=== PATIENT | female | born 1950 | race Caucasian/White ===

== ENCOUNTER 2020-04-26 13:37 | Outpatient (CLI) | payer MEDICARE, SELFPAY ==
--- NOTE | ~2020-04-26 | MR_ITS ---
EXAMINATION: MR shoulder RT wo con DATE: 04/26/2020 14:47 INDICATION: Right shoulder pain. TECHNIQUE: Magnetic resonance imaging (MRI) of the right shoulder was performed without intravenous c ontrast. Sequences included axial PD-weighted FS FSE, coronal oblique PD-weighted FS FSE and T2-weigh summer FS FSE, and sagittal oblique T2-weighted FS FSE and T1-weighted FSE. COMPARISON: Right shoulder radiographs 04/26/2020 FINDINGS: Coracoacromial arch: The acromion undersurface is curved in morphology with anterior hook (type III). There is moderate ac romioclavicular joint osteoarthritis. There is mild subacromial/subdeltoid bursitis. Rotator cuff: There is severe supraspinatus tendinopathy and mild infraspinatus tendinopathy. Teres minor tendon is normal. There is mild subscapularis tendinopathy. There is no asymmetric fatty atrophy of the rotato r cuff muscle bellies. Biceps tendon and glenoid labrum: Biceps tendon is in bicipital groove. There is mild intra-articular biceps tendinopathy. There is mac eration of the glenoid labrum. Fluid: There is a moderate-sized glenohumeral joint effusion. Bones/cartilage: There is extensive full-thickness cartilage loss of glenoid and humeral head. There are subchondral c ysts in the glenoid. There is flattening of the articular surface of the humeral head. IMPRESSION: 1. Advanced right glenohumeral joint osteoarthritis. 2. Severe rotator cuff tendinopathy. No tear. 3. Mild intra-articular biceps tendinopathy. 4. Moderate acromioclavicular joint osteoarthritis. 5. Moderate-sized glenohumeral joint effusion. 6. Mild subacromial/subdeltoid bursitis. Reviewed, dictated and finalized at location A.
--- NOTE | ~2020-04-26 | XR_ITS ---
EXAMINATION: XR shoulder RT min 2V DATE: 04/26/2020 14:46 INDICATION: Right shoulder pain. TECHNIQUE: 4 views of right shoulder were obtained. COMPARISON: Right shoulder radiographs 09/11/2017 FINDINGS: Bone alignment is normal. There is advanced glenohumeral joint osteoarthritis including bon e volume loss of humeral head, which is flattened. There is mild acromioclavicular joint osteoarthrit is. IMPRESSION: 1. Advanced right glenohumeral joint osteoarthritis. Reviewed, dictated and finalized at location A.
== END 2020-04-26 13:38 | disposition home or self-care (01) ==
LOC: ANHIMG 13:40
PROVIDERS: PCP Family Medicine; Visit Provider Nurse Practitioner Adult Health
DX: M19.011 Primary osteoarthritis, right shoulder (principal); M75.51 Bursitis of right shoulder; M25.411 Effusion, right shoulder
CPT/HCPCS: 73030; 73221

== ENCOUNTER → 2021-01-30 10:15 | Outpatient (CLI) | payer MEDICARE, SELFPAY ==
[2021-01-30 14:22] LABS: Influenza Control Positive
[2021-01-30 23:32] LABS: SARS-CoV-2 RNA PCR Positive
== END ==
PROVIDERS: Physician Assistant; PCP Family Medicine; Visit Provider Family Medicine
DX: U07.1 COVID-19 (principal); R05 Cough; R50.9 Fever, unspecified
CPT/HCPCS: 87804; C9803; U0003; U0005

== ENCOUNTER 2021-02-06 23:13 | Inpatient (IN) | payer MEDICARE, SELFPAY ==
--- NOTE | ~2021-02-06 | XR_ITS ---
EXAMINATION: XR chest 1V portable DATE: 02/10/2021 04:08 INDICATION: Oxygen desaturation. COVID-19 pneumonia. TECHNIQUE: A single frontal view of the chest was obtained. COMPARISON: Chest single view 02/07/2021, chest CT 02/08/2021 FINDINGS: There are patchy airspace opacities in all lung zones bilaterally. No pleural effusion or p neumothorax. The heart size is normal. There is chronic bone volume loss of right humeral head at the articular surface. IMPRESSION: 1. Diffuse lung disease with worsening on the left, consistent with COVID-19 pneumonia. Reviewed, dictated and finalized at location A. E BUSINESS CONSULTANT IMPRESSION: 1. Diffuse lung disease with worsening on the left, consistent with COVID-19 pn eumonia.
--- NOTE | ~2021-02-06 | US_ITS ---
EXAMINATION: US abdomen limited EXAM DATE: 02/15/2021 16:17 INDICATION: Elevated liver enzymes. TECHNIQUE: Multiple grayscale and Doppler images of the abdomen right upper quadrant were obtained ( by a technologist who performed the scan) and subsequently reviewed. Comparison is made to prior exam ination from 11/14/2015. FINDINGS: The pancreatic head and body are normal in appearance. The pancreatic tail is not visualized. The l iver has normal echogenicity and contour. There are no focal liver lesions identified. There is no evidence of intrahepatic biliary duct dilation. Portal venous flow was seen in the hepatopedal, nor mal direction and has normal Doppler waveform. No right-sided hydronephrosis. Common bile duct measures 3 mm, which is normal. The gallbladder fossa is unremarkable. IMPRESSION: 1. Unremarkable abdominal ultrasound exam. Reviewed, dictated and finalized at location A.
--- NOTE | ~2021-02-06 | US_ITS ---
EXAMINATION: US venous doppler [facility] DATE: 02/07/2021 16:47 INDICATION: Lower limb edema. TECHNIQUE: Grayscale ultrasound images without and with compression and Doppler ultrasound images of the bilateral lower extremity veins were obtained. COMPARISON: Ultrasound 09/04/2015 FINDINGS: The visualized portions of right common femoral vein, profunda (deep) femoral vein, femoral vein, pop liteal vein, peroneal veins, posterior tibial veins, and greater saphenous vein outflow are patent. The visualized portions of left common femoral vein, profunda femoral vein, femoral vein, popliteal v ein, peroneal veins, posterior tibial veins, and greater saphenous vein outflow are patent. IMPRESSION: 1. No deep venous thrombosis. Reviewed, dictated and finalized at location A. BLADE BENDER FURNACE TENDER
--- NOTE | ~2021-02-06 | XR_ITS ---
EXAMINATION: XR chest 1V portable INDICATION: Shortness of breath, COVID 19 TECHNIQUE: Portable AP chest at 0019 hours COMPARISON: 10/07/2006 FINDINGS: There are patchy opacities throughout the lungs, worst in the right upper lobe. There is no pleural effusion or pneumothorax. The cardiomediastinal silhouette is normal. The visualized osseous structures are normal. IMPRESSION: 1. Patchy bilateral airspace opacities, likely pneumonia. Reviewed, dictated and finalized at location A. LTALK DEVELOPER
--- NOTE | ~2021-02-06 | XR_ITS ---
EXAMINATION: XR chest 2V DATE: 02/15/2021 10:43 INDICATION: Follow-up COVID pneumonia TECHNIQUE: frontal and lateral views of the chest were obtained. COMPARISON: Chest radiograph dated 02/10/2021 FINDINGS: Unchanged elevation of the right hemidiaphragm. No significant interval change in bilateral airspace opacities most prominent in the left mid and right mid to upper lung zones. No new airspace opacities , pleural effusion or pneumothorax. The cardiomediastinal silhouette is normal. Severe thoracic spond ylosis. Severe right glenohumeral osteoarthritis. IMPRESSION: 1. No significant interval change in diffuse bilateral lung disease consistent with COVID 19 pneumoni a. Reviewed, dictated and finalized at location B. IMPRESSION: 1. No significant interval change in diffuse bilateral lung disease consistent with COVID 19 pneumonia.
--- NOTE | ~2021-02-06 | CT_ITS ---
EXAMINATION: CTA chest PE protocol EXAM DATE: 02/08/2021 07:37 INDICATION: COVID elevated dimer, r/o PE. TECHNIQUE: Spiral CTA of the chest (pulmonary arteries) was performed with 100 cc Omnipaque 350 intr avenous contrast injection. Images were acquired during the pulmonary arterial phase. Coronal maxi mum intensity projection 3D-reconstructions were created by the technologist on dedicated workstation . Axial, coronal and sagittal reformatted images were reviewed. The dose-length product (DLP) for t his examination was 993.29 mGy-cm. The exposure was tailored according to patient size (auto mA exp osure control), and iterative reconstruction (ASIR) was used as additional dose reduction technique. There is no prior study for comparison. FINDINGS: There is intraluminal small rounded filling defect within a larger left lower lobe interlo bar pulmonary artery (see axial image 102). Rather than being centrally located within the lumen this appears to extend from one wall to another, more consistent with a chronic pulmonary embolism were t hen acute thrombus. There is loss of attenuation right lower lobe segmental pulmonary arteries with e vidence of respiratory motion. No thoracic aortic dissection. There is moderate amount of bilateral groundglass attenuation involving all segments, with small branden ons of confluence in the right upper lobe. Probably COVID pneumonia given history provided. There are no pleural or pericardial effusions. Tracheobronchial tree is patent. There is no mediastinal, h ilar or axillary lymphadenopathy. There is no pneumothorax. Heart normal in size. No evidence o f coronary arterial calcification. Low-density adrenal lesions likely adenomas or hyperplasia. There is cholecystectomy with resultant pneumobilia. There is thoracic spondylosis without osteoblastic o r osteolytic lesions identified. IMPRESSION: 1. Small filling defect in a larger left-sided pulmonary artery, age indeterminate pulmonary embolis m. Could be acute or chronic web, sequela from prior episode of PE. 2. Moderate bilateral airspace disease consistent with COVID pneumonia. I left a message for hospitalist coordinator at [phone] on 02/08/2021 08:14 CLOTHING BUSHELER. I provided my direct nu mber, requested call back to discuss findings in this case. Reviewed, dictated and finalized at location B. HING BUSHELER IMPRESSION: 1. Small filling defect in a larger left-sided pulmonary artery, age indetermi hailey pulmonary embolism. Could be acute or chronic web, sequela from prior epis ode of PE. 2. Moderate bilateral airspace disease consistent with COVID pneumonia. I left a message for hospitalist coordinator at [phone] on 02/08/2021 08:14 CLOTHING BUSHELER. I provided my direct number, requested call back to discuss findings in this alma e.
--- NOTE | 2021-02-06 23:14 | ED.SOB ---
HPI - SOB/Dyspnea General Chief Complaint: Upper Respiratory Infection Stated Complaint: covid + sob with cp and pressure Time Seen by Provider: 02/06/21 23:14 History of Present Illness HPI Narrative: 70 yo female w/ h/o HTN, COPD presents to he ED for SOB. Her symptoms first started 9 days ago. She tested positive for COVID-19 the following day. She has had cough, congestion, body aches, intermittent fever ever since. She also reports nausea and poor PO intake. Today she was more short of breath and developed some mild pressure like chest pain. She was put on a steroid taper by her PCP and has one tablet remaining. Her RA saturation was 88%. She is on 4 liters. Related Data Home Medications Medication Instructions Recorded Confirmed aspirin 81 mg tablet,delayed 81 mg PO DAILY 11/01/19 12/12/20 release calcium carbonate 600 mg calcium 600 mg PO DAILY 11/01/19 12/12/20 (1,500 mg) tablet krill 500 mg-omega 3 115 mg-dha 30 1 cap PO DAILY 11/01/19 12/12/20 mg-epa 64 [id number] capsule vitamin B complex 1 cap PO DAILY 11/01/19 12/12/20 Allergies Allergy/AdvReac Type Severity Reaction Status Date / Time No Known Allergies Allergy Verified 02/06/21 23:28 Review of Systems Review of Systems: All systems reviewed & are unremarkable except as noted in HPI and below Constitutional: Constitutional: Reports chills, Reports fatigue, Reports fever(s) and Reports weakness Eyes: Eyes: Reports no additional eye complaints ENT: Reports nasal congestion Cardiovascular: Cardiovascular: Reports chest pain Respiratory: Respiratory: Reports chest congestion, Reports cough and Reports dyspnea Gastrointestinal: Gastrointestinal: Denies abdominal pain and Reports nausea Genitourinary: Genitourinary: Reports no additional female genitourinary complaints Neurologic: Reports dizziness, Reports headache(s) and Reports weakness PMFSH Past Medical History Medical History 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in A1c less than 7.0% 11/13/2020 A1c = 5.9 HLD (hyperlipidemia) Hypertension Osteoporosis Vision loss Surgical History Surgical History History of varicose veins Status post hysterectomy with oophorectomy Status post laparoscopic cholecystectomy Status post right knee replacement may 2018, Dr. Tovar Family History Family History Mother Hypertension Cerebrovascular accident Father Family history of cardiovascular disease Other Arthritis Social History Social History Smoking packs per day: 1 Smoking cigarettes per day: 20.0 Years smoked: 30 Smoking pack-years: 30.00 Smoking status: Former smoker Second hand tobacco smoke exposure: No Smoking end date: 12/01/03 Alcohol intake: current Drinks per week: 2 Substance use: never Substance use type: does not use Gender identity (if verbalized by the patient): Female Sexual Orientation (if Verbalized by the Patient): Straight or Heterosexual Spiritual care concerns: No Exam Const: General: no acute distress, alert and ill appearing Nutritional Appearance: obese Orientation/consciousness: patient oriented x3 HENMT: Head: normal to inspection Neck: Neck: normal visual inspection Resp: Effort & Inspection: tachypneic Auscultation: crackles Cardio: Rate: tachycardic Rhythm: regular rhythm GI: GI Palp: Yes Soft to palpation and No Tenderness to palpation present (GI) Skin: General skin exam: normal color Neuro: General: patient oriented x3, moves all extremities, no focal motor deficits and CN's II-XI intact bilaterally Speech: normal speech Extrem: Genera
[2021-02-06 23:17] VITALS: BP 134/73; PULSE 110; RESP 28; TEMP 36.9; O2SAT 94
[2021-02-06 23:26] VITALS: PULSE 110; RESP 25; O2SAT 94
[2021-02-06 23:30] VITALS: PULSE 110; RESP 32; O2SAT 92
[2021-02-06] MEDS: IPRATROPIUM BR 0.02% INH SOLN 0.5 MG/2.5 ML VIAL INHALATION (23:34)
[2021-02-06] MEDS: ALBUTEROL SULFATE NEB 2.5 MG/0.5 ML INH 5 MG INHALATION (23:34)
[2021-02-06 23:37] VITALS: PULSE 108; RESP 32
[2021-02-06 23:43] LABS: Alveolar/Arterial O2 Gradient 150.3 mmHg; Carboxyhemoglobin 0.8 % THb (0-2.0); Device NASAL CANNULA; Fractional Inspired Oxygen 36 %; HCO3 ABG 20.7 mEq/l (22.0-26.0); Methemoglobin ABG 0.2 %THb (0-1.5); Modified Allen's Test Pass; Oxygen Content ABG 18.3 %vol (16.0-22.0); Oxygen Saturation ABG 93.9 % (95.0-100.0); Oxyhemoglobin 91.8 % THb (90.0-100.0); PCO2 ABG 33.4 mmHg (35.0-45.0); PO2 ABG 67.6 mmHg (80.0-100.0); PO2 FiO2 Ratio Arterial Blood 1.88 %; Reduced Hemoglobin 7.2 %THb (0-5.0); Site Drawn RIGHT RADIAL; Total Hemoglobin 14.2 g/dL (12.0-18.0); pH ABG 7.411 (7.350-7.450)
[2021-02-06 23:45] VITALS: PULSE 100; PULSE 110; RESP 24; RESP 32; O2SAT 95; O2SAT 96
--- NOTE | 2021-02-06 23:54 | ECG_ITS ---
Measurements Intervals [place] Rate: 112 P: 42 MS: 171 QRS: -33 QRSD: 76 T: 31 QT: 303 QTc: 414 Interpretive Statements SINUS TACHYCARDIA LEFT AXIS DEVIATION VOLTAGE CRITERIA FOR LVH POOR R WAVE PROGRESSION, CONSIDER ANTERIOR INFARCT INFERIOR INFARCT, AGE INDETERMINATE BASELINE ARTIFACT- I, II, AVR, AVL, V1 ABNORMAL ECG Electronically Signed On 02-07-2021 7:00:39 STRUCTURAL STEEL SHOP SUPERVISOR by Ezekiel Nance D.O.
[2021-02-06 23:56] VITALS: BP 111/74; PULSE 120; RESP 28; O2SAT 93
[2021-02-07] VITALS (29 sets, daily range): BP systolic 109–153; BP diastolic 51–80; PULSE 71–121; RESP 18–35; TEMP 36.4–38.3; O2SAT 90–96; BMI 46.3
[2021-02-07] MEDS: DEXAMETHASONE SOD PHOS INJ 4 MG/ML VIAL 6 MG IV PUSH ×2 (00:12→12:50)
[2021-02-07 00:33] LABS: Basophils Absolute Auto 0.1 K/mm3 (0.0-0.1); Basophils Percent Auto 0.7 % (0.2-1.2); Eosinophils Percent Auto 0.2 % (0-4.4); Hematocrit 42.3 % (37.0-47.0); Hemoglobin 13.7 g/dL (12.0-15.0); Immature Granulocyte Absolute 0.73 K/mm3 (0.00-0.031); Immature Granulocyte Percent A 6.1 % (0-0.5); Lymphocytes Absolute Auto 1.87 K/mm3 (0.9-3.2); Lymphocytes Percent Auto 15.5 % (18.3-44.2); Mean Corpuscular HGB Conc 32.4 g/dl (32-36); Mean Corpuscular Hemoglobin 30.5 pg (26-34); Mean Corpuscular Volume 94.2 fl (80-100); Mean Platelet Volume 9.9 fl (7.4-10.4); Monocytes Absolute Auto 0.5 K/mm3 (0.1-0.6); Monocytes Percent Auto 4.3 % (2.6-8.5); Neutrophils Absolute Auto 8.8 K/mm3 (1.3-6.7); Neutrophils Percent Auto 73.2 % (45.5-73.1); Platelet Count Result 195 k/mm3 (150-375); Red Blood Count 4.49 M/mm3 (4.2-5.4); Red Cell Distribution Width 13.8 % (11.5-14.5)
[2021-02-07 00:37] LABS: Prothrombin Time 13.6 Seconds (11.1-14.7)
[2021-02-07 00:38] LABS: Partial Thromboplastin Time 32.6 SECONDS (22.3-36.8)
[2021-02-07 00:59] LABS: Alanine Aminotransferase 83 U/L (4-35); Albumin Level 3.5 g/dL (3.5-5.1); Alkaline Phosphatase 127 U/L (38-126); Anion Gap 7 mmol/L (8-16); Aspartate Amino Transferase 68 U/L (14-36); Bilirubin,Total 0.5 mg/dL (0.2-1.3); Blood Urea Nitrogen 34 mg/dL (7-17); CRP 14.4 mg/dL (<1.0); Calcium 9.2 mg/dL (8.4-10.2); Carbon Dioxide 23 mmol/L (22-30); Chloride 111 mmol/L (98-107); Estimated CRCL calculation 64 ml/min; Estimated Glomerular Filt Rate > 60; Glucose 146 mg/dL (65-105); Potassium 4.5 mmol/L (3.4-5.0); Sodium 141 mmol/L (137-145)
[2021-02-07 01:26] LABS: Lactic Acid Reflex 1.1 mmol/L (0.7-2.1)
[2021-02-07 01:42] LABS: D Dimer 1.31 ug/mL (<0.48)
[2021-02-07] MEDS: ONDANSETRON INJ 4 MG/2 ML VIAL IV PUSH (01:55)
[2021-02-07 02:02] LABS: Appearance Urine Clear (Clear); Bilirubin Urine Negative (Negative); Blood Urine Negative (Negative); Color Urine Yellow (Yellow); Glucose Urine UA Negative (Negative); Ketones Urine 2+ mg/dL (Negative); Leukocyte Esterase Ur Negative LEU/UL (Negative); Nitrate Urine Positive (Negative); Protein Urine 2+ mg/dL (Negative); Specific Grav Ur 1.025 (1.001-1.035); Urobilinogen Urine 0.2 mg/dL (<2.0)
[2021-02-07 02:07] LABS: Bacteria Urine 2+ /hpf; Mucus Urine Few /lpf; RBC Urine 0-2 /hpf (0-2); Squamous Epithelial Cell Urine Rare /hpf (Few); WBC Urine 0-3 /hpf
[2021-02-07 02:08] LABS: Add Urine Microscopic? YES
[2021-02-07] MEDS: ALBUTEROL SULFATE NEB 2.5 MG/0.5 ML INH 5 MG INHALATION ×4 (02:55→20:24)
[2021-02-07] MEDS: IPRATROPIUM BR 0.02% INH SOLN 0.5 MG/2.5 ML VIAL INHALATION ×4 (02:55→20:24)
[2021-02-07] MEDS: REMDESIVIR 200 MG/NS 250 ML 200 MG/250 ML BAG 250 MG IVPB (03:01)
[2021-02-07 10:21] LABS: Basophils Absolute Auto 0.1 K/mm3 (0.0-0.1); Eosinophils Percent Auto 0.4 % (0-4.4); Hematocrit 40.6 % (37.0-47.0); Hemoglobin 13.1 g/dL (12.0-15.0); Immature Granulocyte Absolute 0.76 K/mm3 (0.00-0.031); Immature Granulocyte Percent A 8.3 % (0-0.5); Lymphocytes Absolute Auto 0.67 K/mm3 (0.9-3.2); Lymphocytes Percent Auto 7.3 % (18.3-44.2); Mean Corpuscular HGB Conc 32.3 g/dl (32-36); Mean Corpuscular Hemoglobin 30.8 pg (26-34); Mean Corpuscular Volume 95.3 fl (80-100); Mean Platelet Volume 9.6 fl (7.4-10.4); Monocytes Absolute Auto 0.3 K/mm3 (0.1-0.6); Monocytes Percent Auto 2.7 % (2.6-8.5); Neutrophils Absolute Auto 7.4 K/mm3 (1.3-6.7); Neutrophils Percent Auto 80.3 % (45.5-73.1); Platelet Count Result 185 k/mm3 (150-375); Red Blood Count 4.26 M/mm3 (4.2-5.4); Red Cell Distribution Width 14.1 % (11.5-14.5); White Blood Count 9.2 K/mm3 (4.5-10.0)
[2021-02-07 10:36] LABS: Alanine Aminotransferase 74 U/L (4-35); Albumin Level 3.3 g/dL (3.5-5.1); Alkaline Phosphatase 118 U/L (38-126); Anion Gap 6 mmol/L (8-16); Aspartate Amino Transferase 48 U/L (14-36); Bilirubin,Total 0.3 mg/dL (0.2-1.3); Blood Urea Nitrogen 26 mg/dL (7-17); Calcium 8.7 mg/dL (8.4-10.2); Carbon Dioxide 25 mmol/L (22-30); Chloride 111 mmol/L (98-107); Estimated CRCL calculation 79 ml/min; Estimated Glomerular Filt Rate > 60; Glucose 246 mg/dL (65-105); Magnesium 1.7 mg/dL (1.6-2.3); Potassium 4.3 mmol/L (3.4-5.0); Sodium 142 mmol/L (137-145)
--- NOTE | 2021-02-07 11:37 | PCNSR ---
On 02/07/21, the student,Brittany Katz, provided care and completed [facility]. I have reviewed the student's documentation and agree with the findings.
--- NOTE | 2021-02-07 12:44 | ECG_ITS ---
Measurements Intervals [place] Rate: 74 P: 27 LA: 174 QRS: -27 QRSD: 84 T: 14 QT: 375 QTc: 416 Interpretive Statements SINUS RHYTHM VOLTAGE CRITERIA FOR LVH POOR R WAVE PROGRESSION, ANTERIOR LEADS INFERIOR INFARCT, AGE INDETERMINATE BASELINE ARTIFACT- I, III, AVL ABNORMAL ECG Electronically Signed On 02-07-2021 14:25:08 JUNIOR NETWORK ENGINEER by Ezekiel Nance D.O.
--- NOTE | 2021-02-07 12:46 | PM.IMHP ---
H&P: HPI History of Present Illness Date/Time: 02/07/21 12:15 Chief Complaint: Shortness of breath Narrative: 02/07/21 1215 The supervising physician for this history and physical is Dr Althea Marie. Ms. Garcia is a pleasant 70yo F with history of COPD, hypertension, dyslipidemia with recent known COVID positive testing 01/30/21 who presented to the ED from home for evaluation of worsening shortness of breath. She described her symptoms began 01/29 with body aches, intermittent fever, cough, nausea, and decreased appetite. She has also had progressive shortness of breath which worsened in the last few days enough to prompt her to come to ED. She describes chest heaviness that feels like a loaf of bread sitting on her chest. This sensation is not constant but is coming and going on now for several days, worse yesterday and is present now at time of my encounter. She describes weakness and fatigue. She describes SOB worse with movement. She notes headaches that mildly improve with using Tylenol at home. She denies leg swelling or pain. In the ED: Chest XR shows PETROS patchy airspace disease consistent with pneumonia. Noted to have hypoxia and was started on supplemental O2, initially on 4L/min now up to 6L/min NC. Minimally elevated LFTs are noted. Other routine labs are grossly unremarkable aside from D-dimer 1.31. She was started on dexamethasone, remdesivir, and nebulized bronchodilator therapy in the ED. She is admitted inpatient status to the hospitalist service for management of acute respiratory failure secondary to COVID pneumonia, COPD. Review of Systems Review of Systems: All systems reviewed & are unremarkable except as noted in HPI and below PMFSH Past Medical History Medical History 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in A1c less than 7.0% 11/13/2020 A1c = 5.9 HLD (hyperlipidemia) Hypertension Osteoporosis Vision loss Surgical History Surgical History History of varicose veins Status post hysterectomy with oophorectomy Status post laparoscopic cholecystectomy Status post right knee replacement may 2018, Dr. Tovar Family History Family History Mother Hypertension Cerebrovascular accident Heart murmur Father Family history of cardiovascular disease Arthritis Atrial fibrillation Diabetes mellitus Social History Social History (Updated 02/07/21 @ 20:42 by Rosamaria Ascencio PA-C) Social History: Ms. Garcia lives at home alone in [place] and is retired from working at an accounting office. She reports some alcohol intake maybe 2 drinks per week. Former smoker 1ppd x 30 years and quit in 2003. Denies other substance use. PCP is Dr Jesus Gonzales. She describes she would wish for CPR and intubation if felt she could survive but would not wish to be on life support for an extended period, thus keeping her code status DNR. She has two children and her son, Manuel, is a wire harness assembler in [place] and is her designated power of health care attorney. Smoking packs per day: 1 Smoking cigarettes per day: 20.0 Years smoked: 30 Smoking pack-years: 30.00 Smoking status: Former smoker Tobacco type: cigarettes Second hand tobacco smoke exposure: No Alcohol intake: current Drinks per week: 2 Substance use: never Substance use type: does not use Living arrangements: alone Occupation/Education: retired Gender identity (if verbalized by the patient): Female Sexual Orientation (if Verbalized by the Patient): Straight or Heterosexual Spiritual care concerns: No Meds Home Medications and Allergies Home Medications Medication Instructions Recorded Confirmed Type aspirin 81 mg tablet,krish
[2021-02-07] MEDS: ENOXAPARIN 40 MG/0.4 ML SYRINGE SUB-Q ×2 (12:50→21:35)
[2021-02-07] MEDS: METOPROLOL SUCCINATE EXT REL 25 MG TABCR PO (12:52)
[2021-02-07] MEDS: LOSARTAN POTASSIUM 50 MG TABLET PO (12:52)
[2021-02-07] MEDS: MAGNESIUM SULF 2 GM/WATER 50ML 2 GM/50 ML BAG IVPB (12:53)
[2021-02-07] MEDS: PANTOPRAZOLE 40 MG TABLET PO (12:53)
[2021-02-07 15:39] LABS: Troponin I < 0.012 ng/mL (0.000-0.034)
[2021-02-07] MEDS: predniSONE 40 MG, predniSONE 10 MG 50 MG PO (17:59)
[2021-02-07] MEDS: SALINE 0.65% NAS SOLN 44 ML BTL 1 SPRAY NASAL (18:00)
[2021-02-07] MEDS: REMDESIVIR 100 MG/NS 250 ML 100 MG/250 ML BAG 250 MG IVPB (21:35)
[2021-02-08] VITALS (15 sets, daily range): BP systolic 120–130; BP diastolic 57–80; PULSE 66–101; RESP 20–22; TEMP 36.8–37.4; O2SAT 90–93
[2021-02-08] MEDS: predniSONE 40 MG, predniSONE 10 MG 50 MG PO ×2 (00:53→06:35)
[2021-02-08] MEDS: ALBUTEROL SULFATE NEB 2.5 MG/0.5 ML INH 5 MG INHALATION ×4 (02:30→20:46)
[2021-02-08] MEDS: IPRATROPIUM BR 0.02% INH SOLN 0.5 MG/2.5 ML VIAL INHALATION ×4 (02:31→20:46)
[2021-02-08 06:17] LABS: Basophils Percent Auto 0.1 % (0.2-1.2); Hematocrit 37.6 % (37.0-47.0); Hemoglobin 12.2 g/dL (12.0-15.0); Immature Granulocyte Absolute 0.75 K/mm3 (0.00-0.031); Immature Granulocyte Percent A 8.2 % (0-0.5); Lymphocytes Absolute Auto 0.62 K/mm3 (0.9-3.2); Lymphocytes Percent Auto 6.7 % (18.3-44.2); Mean Corpuscular HGB Conc 32.4 g/dl (32-36); Mean Corpuscular Hemoglobin 30.2 pg (26-34); Mean Corpuscular Volume 93.1 fl (80-100); Mean Platelet Volume 9.5 fl (7.4-10.4); Monocytes Absolute Auto 0.6 K/mm3 (0.1-0.6); Monocytes Percent Auto 6.1 % (2.6-8.5); Neutrophils Absolute Auto 7.3 K/mm3 (1.3-6.7); Neutrophils Percent Auto 78.9 % (45.5-73.1); Platelet Count Result 219 k/mm3 (150-375); Red Blood Count 4.04 M/mm3 (4.2-5.4); Red Cell Distribution Width 13.8 % (11.5-14.5); White Blood Count 9.2 K/mm3 (4.5-10.0)
[2021-02-08 06:27] LABS: Alanine Aminotransferase 84 U/L (4-35); Albumin Level 3.2 g/dL (3.5-5.1); Alkaline Phosphatase 116 U/L (38-126); Anion Gap 9 mmol/L (8-16); Aspartate Amino Transferase 60 U/L (14-36); Bilirubin,Total 0.2 mg/dL (0.2-1.3); Blood Urea Nitrogen 28 mg/dL (7-17); Carbon Dioxide 23 mmol/L (22-30); Chloride 110 mmol/L (98-107); Creatine Kinase 31 U/L (30-135); Estimated CRCL calculation 70 ml/min; Estimated Glomerular Filt Rate > 60; Glucose 256 mg/dL (65-105); Potassium 3.9 mmol/L (3.4-5.0); Sodium 142 mmol/L (137-145)
[2021-02-08] MEDS: diphenhydrAMINE HCl CAP 25 MG CAPSULE 50 MG PO (06:37)
[2021-02-08] MEDS: UMECLIDINIUM/VILANTEROL 62.5-25 MCG ELLIPTA 1 PUFF INHALATION (08:10)
[2021-02-08] MEDS: DEXAMETHASONE SOD PHOS INJ 4 MG/ML VIAL 6 MG IV PUSH (09:39)
[2021-02-08] MEDS: CALCIUM CARBONATE (OSCAL) 500 MG TABLET PO (09:41)
[2021-02-08] MEDS: CHOLECALCIFEROL 1,000 UNITS TABLET 1000 UNITS PO (09:41)
[2021-02-08] MEDS: APIXABAN 5 MG TABLET 10 MG PO ×2 (09:41→21:04)
[2021-02-08] MEDS: PANTOPRAZOLE 40 MG TABLET PO (09:42)
[2021-02-08] MEDS: METOPROLOL SUCCINATE EXT REL 25 MG TABCR PO (09:42)
[2021-02-08] MEDS: LOSARTAN POTASSIUM 50 MG TABLET PO (09:42)
[2021-02-08] MEDS: MAGNESIUM OXIDE 200 MG TABLET PO ×2 (09:42→21:03)
[2021-02-08] MEDS: ZINC SULFATE 220 MG CAPSULE PO (09:42)
[2021-02-08] MEDS: ASCORBIC ACID 500 MG TABLET PO (09:42)
--- NOTE | 2021-02-08 14:07 | PM.IMPN ---
Progress Note: A&P Assessment and Plan (1) Acute respiratory failure due to COVID-19: Code(s): U07.1 - COVID-19; J96.00 - Acute respiratory failure, unspecified whether with hypoxia or hypercapnia Status: Acute Assessment and Plan: Patient presents with worsening shortness of breath, fatigue; CXR shows patchy PETROS airspace disease; COVID positive 01/30/21. Continue dexamethasone (day 3); remdesivir (day 3). Continue supplemental O2 and wean as tolerated to keep O2 saturations > 90%. Continue supportive care with Tylenol for fevers, bronchodilators, Robitussin, incentive spirometer, supplementation of Zinc, vitamins C and D. (2) Pulmonary embolism: Qualifiers: Pulmonary embolism type: unspecified Chronicity: unspecified Acute cor pulmonale presence: unspecified Qualified Code(s): I26.99 - Other pulmonary embolism without acute cor pulmonale Code(s): I26.99 - Other pulmonary embolism without acute cor pulmonale Status: Acute Assessment and Plan: D dimer 1.31. CTA chest 02/08 demonstrates a small filling defect in left lower lobe, age indeterminate PE (characteristics more consistent with a resolving PE than an acute PE). Dopplers 02/07 show no DVT PETROS legs. Discussed with patient. Start Eliquis. (3) Abnormal urinalysis: Code(s): R82.90 - Unspecified abnormal findings in urine Status: Acute Assessment and Plan: Started on ceftriaxone in ED due to abnormal UA. Not enough WBC to reflex for urine culture, contacted lab this AM and they will culture the specimen from arrival. Continue IV ceftriaxone (day 2) while awaiting urine and blood cultures. (4) COPD (chronic obstructive pulmonary disease): Qualifiers: COPD type: unspecified COPD Qualified Code(s): J44.9 - Chronic obstructive pulmonary disease, unspecified Code(s): J44.9 - Chronic obstructive pulmonary disease, unspecified Status: Chronic Assessment and Plan: Without wheezing does not appear to have COPD exacerbation. Continue her home Anoro inhaler. Continue nebulized bronchodilator therapy for now and hopefully can deescalate to MDI soon. (5) Essential (primary) hypertension: Code(s): I10 - Essential (primary) hypertension Status: Chronic Assessment and Plan: BP stable/ on lower end last 127/57 maintained on her home metoprolol and losartan. Hold spironolactone for now. Monitor BP and adjust treatment as needed. (6) Transaminitis: Code(s): R74.01 - Elevation of levels of liver transaminase levels Status: Acute Assessment and Plan: Suspect may be related to viral illness with COVID. Mild. Will monitor LFTs while on remdesivir. Hold statin therapy for now. (7) Chronic GERD: Code(s): K21.9 - Gastro-esophageal reflux disease without esophagitis Status: Chronic Assessment and Plan: Continue PPI, no acute issues. (8) Arthritis of shoulder region, right: Code(s): M19.011 - Primary osteoarthritis, right shoulder Status: Chronic Assessment and Plan: Follows with Dr Warner. She reports chronic pain to R shoulder due to arthritis. She notes she is supposed to have shoulder replacement but she was advised to lose weight first. Subjective Date/time seen: 02/08/21 1400 Interval history: Ms. Garcia is a pleasant 70yo F admitted for acute respiratory failure secondary to COVID pneumonia. She reports her shortness of breath feels slightly improved today compared to yesterday. No chest pressure today. Coughing after breathing treatments but she thinks they are helping. Michael
[2021-02-08] MEDS: REMDESIVIR 100 MG/NS 250 ML 100 MG/250 ML BAG 250 MG IVPB (21:03)
[2021-02-09] VITALS (22 sets, daily range): BP systolic 122–143; BP diastolic 61–73; PULSE 77–114; RESP 16–22; TEMP 36.3–36.8; O2SAT 89–93
[2021-02-09] MEDS: ALBUTEROL SULFATE NEB 2.5 MG/0.5 ML INH 5 MG INHALATION ×4 (02:27→21:13)
[2021-02-09] MEDS: IPRATROPIUM BR 0.02% INH SOLN 0.5 MG/2.5 ML VIAL INHALATION ×4 (02:27→21:13)
[2021-02-09 06:40] LABS: Alanine Aminotransferase 166 U/L (4-35); Alkaline Phosphatase 120 U/L (38-126); Anion Gap 5 mmol/L (8-16); Aspartate Amino Transferase 112 U/L (14-36); Bilirubin,Total 0.2 mg/dL (0.2-1.3); Blood Urea Nitrogen 34 mg/dL (7-17); Calcium 9.2 mg/dL (8.4-10.2); Carbon Dioxide 25 mmol/L (22-30); Chloride 112 mmol/L (98-107); Estimated CRCL calculation 63 ml/min; Estimated Glomerular Filt Rate > 60; Glucose 305 mg/dL (65-105); Potassium 4.2 mmol/L (3.4-5.0); Sodium 142 mmol/L (137-145)
[2021-02-09] MEDS: ASCORBIC ACID 500 MG TABLET PO (08:02)
[2021-02-09] MEDS: CALCIUM CARBONATE (OSCAL) 500 MG TABLET PO (08:02)
[2021-02-09] MEDS: MAGNESIUM OXIDE 200 MG TABLET PO ×2 (08:02→21:09)
[2021-02-09] MEDS: PANTOPRAZOLE 40 MG TABLET PO (08:02)
[2021-02-09] MEDS: CHOLECALCIFEROL 1,000 UNITS TABLET 1000 UNITS PO (08:02)
[2021-02-09] MEDS: DEXAMETHASONE SOD PHOS INJ 4 MG/ML VIAL 6 MG IV PUSH (08:02)
[2021-02-09] MEDS: ZINC SULFATE 220 MG CAPSULE PO (08:02)
[2021-02-09] MEDS: LOSARTAN POTASSIUM 50 MG TABLET PO (08:02)
[2021-02-09] MEDS: APIXABAN 5 MG TABLET 10 MG PO ×2 (08:03→21:10)
[2021-02-09] MEDS: METOPROLOL SUCCINATE EXT REL 25 MG TABCR PO (08:06)
[2021-02-09] MEDS: guaiFENesin/DEXTROMETHORPHAN 10 ML UDC PO ×3 (08:11→15:56)
[2021-02-09] MEDS: UMECLIDINIUM/VILANTEROL 62.5-25 MCG ELLIPTA 1 PUFF INHALATION (08:53)
[2021-02-09 09:17] LABS: Hemoglobin A1C 6.6 % (<5.7)
[2021-02-09 11:45] LABS: Glucose Point of Care 378 (65-105)
[2021-02-09] MEDS: INSULIN ASPART (*BKC) 100 UNITS/ML SUB-Q ×2 (11:50→17:59)
[2021-02-09] MEDS: polyethylene glycoL 3350 17 GM POWD.PACK PO (13:00)
[2021-02-09] MEDS: ACETAMINOPHEN 325 MG TABLET 650 MG PO (13:58)
[2021-02-09 14:49] LABS: Glucose Point of Care 385 (65-105)
[2021-02-09] MEDS: INSULIN ASPART (*BKC) 100 UNITS/ML 12 UNITS SUB-Q (15:04)
--- NOTE | 2021-02-09 16:17 | PM.IMPN ---
Progress Note: A&P Assessment and Plan (1) Acute respiratory failure due to COVID-19: Code(s): U07.1 - COVID-19; J96.00 - Acute respiratory failure, unspecified whether with hypoxia or hypercapnia Status: Acute Assessment and Plan: Patient presents with worsening shortness of breath, fatigue; CXR shows patchy PETROS airspace disease; COVID positive 01/30/21. Continue dexamethasone (day 4); remdesivir (day 4). Continue supplemental O2 and wean as tolerated to keep O2 saturations > 90%. O2 able to be weaned today now tolerating 4L. Continue supportive care with Tylenol for fevers, bronchodilators, Robitussin, incentive spirometer, supplementation of Zinc, vitamins C and D. (2) Pulmonary embolism: Qualifiers: Pulmonary embolism type: unspecified Chronicity: unspecified Acute cor pulmonale presence: unspecified Qualified Code(s): I26.99 - Other pulmonary embolism without acute cor pulmonale Code(s): I26.99 - Other pulmonary embolism without acute cor pulmonale Status: Acute Assessment and Plan: D dimer 1.31. CTA chest 02/08 demonstrates a small filling defect in left lower lobe, age indeterminate PE (characteristics more consistent with a resolving PE than an acute PE but cannot rule out acute PE that is tiny/oddly shaped). Dopplers 02/07 show no DVT PETROS legs. Continue Eliquis. Repeat CTA chest in 3-6 months is recommended. (3) Hemoglobin A1c less than 7.0%: Code(s): R73.09 - Other abnormal glucose Status: Acute Assessment and Plan: A1c 6.6% (up from 5.9% in Oct 2020). With blood sugars in the high 300s today. Start Lantus this evening. Start diabetic diet. Start accu-cheks and cover with sliding scale insulin. Give novolog now for hyperglycemia. (4) Abnormal urinalysis: Code(s): R82.90 - Unspecified abnormal findings in urine Status: Acute Assessment and Plan: Started on ceftriaxone in ED due to abnormal UA. Urine growing Gram negative bacilli. Continue IV ceftriaxone (day 3) while awaiting urine culture identification and blood cultures. (5) COPD (chronic obstructive pulmonary disease): Qualifiers: COPD type: unspecified COPD Qualified Code(s): J44.9 - Chronic obstructive pulmonary disease, unspecified Code(s): J44.9 - Chronic obstructive pulmonary disease, unspecified Status: Chronic Assessment and Plan: Without wheezing does not appear to have COPD exacerbation. Continue her home Anoro inhaler. Continue nebulized bronchodilator therapy for now. (6) Essential (primary) hypertension: Code(s): I10 - Essential (primary) hypertension Status: Chronic Assessment and Plan: BP stable 122/65 maintained on her home metoprolol and losartan. Hold spironolactone for now. Monitor BP and adjust treatment as needed. (7) Transaminitis: Code(s): R74.01 - Elevation of levels of liver transaminase levels Status: Acute Assessment and Plan: Suspect may be related to viral illness with COVID. LFTs are trending up; continue to monitor while on Remdesivir. Hold statin therapy for now. (8) Chronic GERD: Code(s): K21.9 - Gastro-esophageal reflux disease without esophagitis Status: Chronic Assessment and Plan: Continue PPI, no acute issues. (9) Arthritis of shoulder region, right: Code(s): M19.011 - Primary osteoarthritis, right shoulder Status: Chronic Assessment and Plan: Follows with Dr Warner. She reports chronic pain to R shoulder due to arthritis. She notes she is supposed to have shoulder replacement but she was
[2021-02-09 17:58] LABS: Glucose Point of Care 302 (65-105)
[2021-02-09] MEDS: INSULIN ASPART (*BKC) 100 UNITS/ML 6 UNITS SUB-Q (17:59)
[2021-02-09 21:19] LABS: Glucose Point of Care 221 (65-105)
[2021-02-09] MEDS: INSULIN GLARGINE (*BKC) 100 UNITS/ML 20 UNITS SUB-Q (21:20)
[2021-02-09] MEDS: REMDESIVIR 100 MG/NS 250 ML 100 MG/250 ML BAG 250 MG IVPB (21:22)
[2021-02-09] MEDS: BISACODYL 5 MG TABLET EC PO (22:40)
[2021-02-10] VITALS (22 sets, daily range): BP systolic 131–139; BP diastolic 59–64; PULSE 72–110; RESP 18–20; TEMP 35.9–36.3; O2SAT 86–97
[2021-02-10] MEDS: ALBUTEROL SULFATE NEB 2.5 MG/0.5 ML INH 5 MG INHALATION ×4 (02:40→19:31)
[2021-02-10] MEDS: IPRATROPIUM BR 0.02% INH SOLN 0.5 MG/2.5 ML VIAL INHALATION ×4 (02:40→19:31)
[2021-02-10] MEDS: guaiFENesin/DEXTROMETHORPHAN 10 ML UDC PO ×2 (02:59→08:53)
[2021-02-10 04:16] LABS: Alveolar/Arterial O2 Gradient 182.7 mmHg; Base Excess ABG 0.5 mEq/l (+/-2.0); Fractional Inspired Oxygen 40 %; HCO3 ABG 25.2 mEq/l (22.0-26.0); Oxygen Content ABG 16.8 %vol (16.0-22.0); Oxygen Saturation ABG 88.9 % (95.0-100.0); Oxyhemoglobin 87.7 % THb (90.0-100.0); PCO2 ABG 41.2 mmHg (35.0-45.0); PO2 ABG 55.1 mmHg (80.0-100.0); PO2 FiO2 Ratio Arterial Blood 1.38 %; Total Hemoglobin 13.6 g/dL (12.0-18.0); pH ABG 7.405 (7.350-7.450)
[2021-02-10 04:17] LABS: Device NASAL CANNULA; Modified Allen's Test Pass; Site Drawn RIGHT RADIAL
--- NOTE | 2021-02-10 06:28 | PC.NURSE ---
Dr. Joshi was called when patient's SpO2 didn't improve. She had been on 2 lpm during the day with reported improvement in SpO2. While sleeping she desaturated and woke up with a dry cough. O2 was increased by increments of 1 with little improvement noted on the monitor. At 5 lpm she had a baseline SpO2 of 85%. ABG's were redrawn, patient was sat upright, and she was titrated up to 15 lpm with a high flow cannula, now 88%.
[2021-02-10 07:08] LABS: Alanine Aminotransferase 192 U/L (4-35); Albumin Level 3.1 g/dL (3.5-5.1); Alkaline Phosphatase 108 U/L (38-126); Anion Gap 3 mmol/L (8-16); Aspartate Amino Transferase 91 U/L (14-36); Bilirubin,Total 0.4 mg/dL (0.2-1.3); Blood Urea Nitrogen 34 mg/dL (7-17); Carbon Dioxide 28 mmol/L (22-30); Chloride 109 mmol/L (98-107); Estimated CRCL calculation 70 ml/min; Estimated Glomerular Filt Rate > 60; Glucose 270 mg/dL (65-105); Potassium 4.5 mmol/L (3.4-5.0); Sodium 140 mmol/L (137-145)
[2021-02-10 07:13] LABS: Basophils Absolute Auto 0.1 K/mm3 (0.0-0.1); Basophils Percent Auto 0.9 % (0.2-1.2); Hematocrit 39.9 % (37.0-47.0); Hemoglobin 12.9 g/dL (12.0-15.0); Immature Granulocyte Absolute 0.89 K/mm3 (0.00-0.031); Immature Granulocyte Percent A 7.6 % (0-0.5); Lymphocytes Absolute Auto 0.78 K/mm3 (0.9-3.2); Lymphocytes Percent Auto 6.7 % (18.3-44.2); Mean Corpuscular HGB Conc 32.3 g/dl (32-36); Mean Corpuscular Hemoglobin 29.9 pg (26-34); Mean Corpuscular Volume 92.6 fl (80-100); Mean Platelet Volume 9.7 fl (7.4-10.4); Monocytes Percent Auto 8.7 % (2.6-8.5); Neutrophils Absolute Auto 8.9 K/mm3 (1.3-6.7); Neutrophils Percent Auto 76.1 % (45.5-73.1); Platelet Count Result 278 k/mm3 (150-375); Red Blood Count 4.31 M/mm3 (4.2-5.4); White Blood Count 11.7 K/mm3 (4.5-10.0)
[2021-02-10] MEDS: CALCIUM CARBONATE (OSCAL) 500 MG TABLET PO (08:33)
[2021-02-10] MEDS: CHOLECALCIFEROL 1,000 UNITS TABLET 1000 UNITS PO (08:33)
[2021-02-10] MEDS: APIXABAN 5 MG TABLET 10 MG PO ×2 (08:33→20:27)
[2021-02-10] MEDS: ASCORBIC ACID 500 MG TABLET PO (08:33)
[2021-02-10] MEDS: DEXAMETHASONE SOD PHOS INJ 4 MG/ML VIAL 6 MG IV PUSH (08:34)
[2021-02-10] MEDS: LOSARTAN POTASSIUM 50 MG TABLET PO (08:34)
[2021-02-10] MEDS: MAGNESIUM OXIDE 200 MG TABLET PO ×2 (08:35→20:27)
[2021-02-10] MEDS: METOPROLOL SUCCINATE EXT REL 25 MG TABCR PO (08:35)
[2021-02-10] MEDS: polyethylene glycoL 3350 17 GM POWD.PACK PO (08:36)
[2021-02-10] MEDS: PANTOPRAZOLE 40 MG TABLET PO (08:36)
[2021-02-10] MEDS: INSULIN ASPART (*BKC) 100 UNITS/ML SUB-Q ×3 (09:02→18:34)
[2021-02-10] MEDS: INSULIN ASPART (*BKC) 100 UNITS/ML 6 UNITS SUB-Q ×3 (09:03→18:35)
[2021-02-10 10:12] LABS: Glucose Point of Care 234 (65-105)
[2021-02-10] MEDS: ZINC SULFATE 220 MG CAPSULE PO (11:56)
[2021-02-10 13:07] LABS: Glucose Point of Care 213 (65-105)
--- NOTE | 2021-02-10 13:11 | PM.IMPN ---
Progress Note: A&P Assessment and Plan (1) Acute respiratory failure due to COVID-19: Code(s): U07.1 - COVID-19; J96.00 - Acute respiratory failure, unspecified whether with hypoxia or hypercapnia Status: Acute Assessment and Plan: Patient presents with worsening shortness of breath, fatigue; CXR shows patchy PETROS airspace disease; COVID positive 01/30/21. Continue dexamethasone (day 5); remdesivir (day 5). Continue supplemental O2 and wean as tolerated to keep O2 saturations around 89-95%. Was tolerating 2L/min around 2AM then with marked increase in O2 requirement very early this morning up to 15L/min high flow NC, now tolerating 13L/min. Continue supportive care with Tylenol for fevers, bronchodilators, Robitussin, incentive spirometer, supplementation of Zinc, vitamins C and D. (2) Pulmonary embolism: Qualifiers: Pulmonary embolism type: unspecified Chronicity: unspecified Acute cor pulmonale presence: unspecified Qualified Code(s): I26.99 - Other pulmonary embolism without acute cor pulmonale Code(s): I26.99 - Other pulmonary embolism without acute cor pulmonale Status: Acute Assessment and Plan: D dimer 1.31. CTA chest 02/08 demonstrates a small filling defect in left lower lobe, age indeterminate PE (characteristics more consistent with a resolving PE than an acute PE but cannot rule out acute PE that is tiny/oddly shaped). Dopplers 02/07 show no DVT PETROS legs. Continue Eliquis. Repeat CTA chest in 3-6 months is recommended. (3) Hemoglobin A1c less than 7.0%: Code(s): R73.09 - Other abnormal glucose Status: Acute Assessment and Plan: A1c 6.6% (up from 5.9% in Oct 2020). With blood sugars in the high 300s yesterday. Sugars have improved some with insulin, will monitor trend and titrate insulin as needed. Started Lantus 20units HS 02/09. Diabetic diet. Continue to monitor accu-cheks and cover with sliding scale insulin. Placed consultation for diabetes education. (4) COPD (chronic obstructive pulmonary disease): Qualifiers: COPD type: unspecified COPD Qualified Code(s): J44.9 - Chronic obstructive pulmonary disease, unspecified Code(s): J44.9 - Chronic obstructive pulmonary disease, unspecified Status: Chronic Assessment and Plan: Without wheezing does not appear to have COPD exacerbation. Continue her home Anoro inhaler. Continue nebulized bronchodilator therapy for now. (5) UTI (urinary tract infection): Qualifiers: Urinary tract infection type: acute cystitis Hematuria presence: without hematuria Qualified Code(s): N30.00 - Acute cystitis without hematuria Code(s): N39.0 - Urinary tract infection, site not specified Status: Acute Assessment and Plan: Urine culture growing Klebsiella. Blood cultures pending with no growth. Continue IV ceftriaxone (day 5). (6) Essential (primary) hypertension: Code(s): I10 - Essential (primary) hypertension Status: Chronic Assessment and Plan: BP stable, last 139/64 maintained on her home metoprolol and losartan. Hold spironolactone for now. Monitor BP and adjust treatment as needed. (7) Transaminitis: Code(s): R74.01 - Elevation of levels of liver transaminase levels Status: Acute Assessment and Plan: Suspect may be related to viral illness with COVID. LFTs are trending up; continue to monitor while on Remdesivir. Discussed with pharmacist. Discussed risk vs benefit with patient and family. Hold statin therapy for now. (8) Chronic GERD: Code(s): K21.9 - Gastro-esophageal reflux disease without esophagitis Status: C
[2021-02-10 17:42] LABS: Glucose Point of Care 274 (65-105)
[2021-02-10] MEDS: INSULIN GLARGINE (*BKC) 100 UNITS/ML 20 UNITS SUB-Q (20:26)
[2021-02-10] MEDS: REMDESIVIR 100 MG/NS 250 ML 100 MG/250 ML BAG 250 MG IVPB (20:29)
[2021-02-10 22:23] LABS: Glucose Point of Care 384 (65-105)
[2021-02-11] VITALS (29 sets, daily range): BP systolic 109–127; BP diastolic 59–70; PULSE 68–120; RESP 18–22; TEMP 36–36.7; O2SAT 89–95
[2021-02-11] MEDS: IPRATROPIUM BR 0.02% INH SOLN 0.5 MG/2.5 ML VIAL INHALATION ×4 (01:59→20:08)
[2021-02-11] MEDS: ALBUTEROL SULFATE NEB 2.5 MG/0.5 ML INH 5 MG INHALATION ×4 (01:59→20:08)
--- NOTE | 2021-02-11 03:38 | PC.NURSE ---
Daylight Savings Time For Daylight Savings Time Ending in the Fall - Clocks are moved back. For Daylight Savings Time Beginning in the Spring - Clocks are moved ahead. For [facility], the time of change occurs at 0200 hrs. Time is taken from the train station server. This entry on the patient's chart recognizes the change in time reflected during documentation. Example: 2 entries for vital signs may be charted for 0200 hrs.
[2021-02-11 05:59] LABS: Hematocrit 40.8 % (37.0-47.0); Hemoglobin 13.2 g/dL (12.0-15.0); Mean Corpuscular HGB Conc 32.4 g/dl (32-36); Mean Corpuscular Hemoglobin 30.2 pg (26-34); Mean Corpuscular Volume 93.4 fl (80-100); Mean Platelet Volume 9.5 fl (7.4-10.4); Platelet Count Result 265 k/mm3 (150-375); Red Blood Count 4.37 M/mm3 (4.2-5.4); Red Cell Distribution Width 13.9 % (11.5-14.5)
[2021-02-11 06:22] LABS: Alanine Aminotransferase 176 U/L (4-35); Albumin Level 3.1 g/dL (3.5-5.1); Alkaline Phosphatase 104 U/L (38-126); Anion Gap 4 mmol/L (8-16); Aspartate Amino Transferase 60 U/L (14-36); Bilirubin,Total 0.4 mg/dL (0.2-1.3); Blood Urea Nitrogen 32 mg/dL (7-17); Calcium 8.9 mg/dL (8.4-10.2); Carbon Dioxide 29 mmol/L (22-30); Chloride 105 mmol/L (98-107); Estimated CRCL calculation 70 ml/min; Estimated Glomerular Filt Rate > 60; Glucose 278 mg/dL (65-105); Magnesium 1.9 mg/dL (1.6-2.3); Potassium 4.7 mmol/L (3.4-5.0); Sodium 138 mmol/L (137-145)
[2021-02-11 06:33] LABS: Lymphocytes Absolute Manual 1.32 K/mm3 (1.1-4.5); Monocytes Absolute Manual 0.77 K/mm3 (0.1-0.90); Monocytes Percent Manual 7 % (3-9); Neutrophils Percent Manual 81 % (46-73); Platelet Estimate Adequate (Adequate); Total Cells Counted 100
[2021-02-11 06:34] LABS: Ovalocytes 1+ (NORMAL)
[2021-02-11 07:06] LABS: Hepatitis B Surface Antigen Negative (Negative)
[2021-02-11 07:11] LABS: HAV RESULT Negative (Negative); Hepatitis B Core IgM Result Negative (Negative)
[2021-02-11 07:23] LABS: Hepatitis C Virus Antibody Negative (Negative)
[2021-02-11 08:20] LABS: Glucose Point of Care 250 (65-105)
[2021-02-11] MEDS: INSULIN ASPART (*BKC) 100 UNITS/ML SUB-Q ×2 (08:50→17:45)
[2021-02-11] MEDS: INSULIN ASPART (*BKC) 100 UNITS/ML 6 UNITS SUB-Q (08:51)
[2021-02-11] MEDS: METOPROLOL SUCCINATE EXT REL 25 MG TABCR PO (08:55)
[2021-02-11] MEDS: ASCORBIC ACID 500 MG TABLET PO (08:55)
[2021-02-11] MEDS: CHOLECALCIFEROL 1,000 UNITS TABLET 1000 UNITS PO (08:55)
[2021-02-11] MEDS: DEXAMETHASONE SOD PHOS INJ 4 MG/ML VIAL 6 MG IV PUSH (08:55)
[2021-02-11] MEDS: APIXABAN 5 MG TABLET 10 MG PO ×2 (08:56→21:23)
[2021-02-11] MEDS: PANTOPRAZOLE 40 MG TABLET PO (08:56)
[2021-02-11] MEDS: MAGNESIUM OXIDE 200 MG TABLET PO ×2 (08:56→21:23)
[2021-02-11] MEDS: LOSARTAN POTASSIUM 50 MG TABLET PO (08:56)
[2021-02-11] MEDS: ZINC SULFATE 220 MG CAPSULE PO (08:56)
[2021-02-11] MEDS: CALCIUM CARBONATE (OSCAL) 500 MG TABLET PO (08:56)
--- NOTE | 2021-02-11 09:58 | PM.IMPN ---
Progress Note: A&P Assessment and Plan (1) Acute respiratory failure due to COVID-19: Code(s): U07.1 - COVID-19; J96.00 - Acute respiratory failure, unspecified whether with hypoxia or hypercapnia Status: Acute Assessment and Plan: Patient presents with worsening shortness of breath, fatigue; CXR shows patchy PETROS airspace disease; COVID positive 01/30/21. Continue dexamethasone (day 5); remdesivir (day 5). Renew remdesivir for another 5 days (LFTs stable). Continue supplemental O2 and wean as tolerated to keep O2 saturations around 89-95%. Tolerating 13L/min high flow NC, same as yesterday. Continue supportive care with Tylenol for fevers, bronchodilators, Robitussin, incentive spirometer, supplementation of Zinc, vitamins C and D. Monitor sinus tachycardia. (2) Pulmonary embolism: Qualifiers: Pulmonary embolism type: unspecified Chronicity: unspecified Acute cor pulmonale presence: unspecified Qualified Code(s): I26.99 - Other pulmonary embolism without acute cor pulmonale Code(s): I26.99 - Other pulmonary embolism without acute cor pulmonale Status: Acute Assessment and Plan: D dimer 1.31. CTA chest 02/08 demonstrates a small filling defect in left lower lobe, age indeterminate PE (characteristics more consistent with a resolving PE than an acute PE but cannot rule out acute PE that is tiny/oddly shaped). Dopplers 02/07 show no DVT PETROS legs. Continue Eliquis. Repeat CTA chest in 3-6 months is recommended. (3) Hemoglobin A1c less than 7.0%: Code(s): R73.09 - Other abnormal glucose Status: Acute Assessment and Plan: A1c 6.6% (up from 5.9% in Oct 2020).. Sugars have improved some with insulin but still elevated, increase insulin. Started Lantus 20units HS and Novolog 6 units SRINI TIDWM 02/09 plus SSI. Increase to 25 units Lantus HS and 8 Novolog SRINI plus SSI. Diabetic diet. Continue to monitor accu-cheks and cover with sliding scale insulin. Placed consultation for diabetes education. (4) COPD (chronic obstructive pulmonary disease): Qualifiers: COPD type: unspecified COPD Qualified Code(s): J44.9 - Chronic obstructive pulmonary disease, unspecified Code(s): J44.9 - Chronic obstructive pulmonary disease, unspecified Status: Chronic Assessment and Plan: Without wheezing does not appear to have COPD exacerbation. Continue her home Anoro inhaler. Continue nebulized bronchodilator therapy for now. (5) UTI (urinary tract infection): Qualifiers: Hematuria presence: without hematuria Urinary tract infection type: acute cystitis Qualified Code(s): N30.00 - Acute cystitis without hematuria Code(s): N39.0 - Urinary tract infection, site not specified Status: Acute Assessment and Plan: Urine culture growing Klebsiella. Blood cultures pending with no growth. Completed 5-day course of ceftriaxone this AM. (6) Essential (primary) hypertension: Code(s): I10 - Essential (primary) hypertension Status: Chronic Assessment and Plan: BP stable, last 125/70 maintained on her home metoprolol and losartan. Hold spironolactone for now. Monitor BP and adjust treatment as needed. (7) Transaminitis: Code(s): R74.01 - Elevation of levels of liver transaminase levels Status: Acute Assessment and Plan: Suspect may be related to viral illness with COVID. LFTs are stable and trending down; continue to monitor closely while on Remdesivir. Discussed with pharmacist yesterday. Discussed risk vs benefit with patient and family. Hold statin therapy for now. (8) Chronic GERD: Code(s): K21.9 - G
[2021-02-11 12:36] LABS: Glucose Point of Care 197 (65-105)
[2021-02-11] MEDS: INSULIN ASPART (*BKC) 100 UNITS/ML 8 UNITS SUB-Q ×2 (13:10→17:46)
[2021-02-11 17:46] LABS: Glucose Point of Care 258 (65-105)
--- NOTE | 2021-02-11 20:11 | PM.CNPUL ---
Assessment and Plan Assessment and plan (1) Pulmonary embolism: Qualifiers: Acute cor pulmonale presence: unspecified Chronicity: unspecified Pulmonary embolism type: unspecified Qualified Code(s): I26.99 - Other pulmonary embolism without acute cor pulmonale Code(s): I26.99 - Other pulmonary embolism without acute cor pulmonale Status: Acute Assessment and Plan: CTA 02/08/2021 small filling defect seen on a larger left pulmonary artery, may be consistent with an acute or chronic web, now on apixaban 10 mg Q 12 hours x 7 days then 5 mg bid. LE dopplers are negative Feb 07. She has not had an echo, which I will order for following possible pulmonary hypertension. She has COVID, COPD, untreated GUALBERTO. (2) Acute respiratory failure due to COVID-19: Code(s): U07.1 - COVID-19; J96.00 - Acute respiratory failure, unspecified whether with hypoxia or hypercapnia Status: Acute Assessment and Plan: Her O2 need increased, with improvement today, weaned down to 5 L/min at rest, was at 13 L/min. She is feeling better, however says that she is too weak to go home tomorrow, maybe by Friday. (3) COPD (chronic obstructive pulmonary disease): Qualifiers: COPD type: unspecified COPD Qualified Code(s): J44.9 - Chronic obstructive pulmonary disease, unspecified Code(s): J44.9 - Chronic obstructive pulmonary disease, unspecified Status: Chronic Assessment and Plan: has been managed on Anoro one puff a day, no need for rescue medication; last PFT was 05/09/2018 with normal spirometry, air trapping, decreased DLCO. She will need PFTs 6 - 8 weeks after discharge, and home O2 study prior to discharge.. (4) History of obstructive sleep apnea: Code(s): Z86.69 - Personal history of other diseases of the nervous system and sense organs Status: Acute Assessment and Plan: had UPPP 2006 which helped for a while; wakes herself at times snoring, naps in the day, not interested in getting treatment for obstructive sleep apnea at this point; BMI is 46.1; she may require O2 at night especially with this episode of COVID and acute hypoxemic respiratory failure. ApneaLink prior to discharge. History of Present Illness History of Present Illness Consult date: 02/11/21 Requesting physician: Rosamaria Ascencio PA-C Reason for consult: other (worsening respiratory failure, COVID, COPD) Chief complaint: Acute respiratory failure due to COVID-19 Narrative: COVID pneumonia and COPD NEW: Mariza Garcia is a 70 yo female with COPD, quit tobacco 16 years ago. She is controlled on Anoro Ellipta one puff a day, no rescue medication. She does not have cough, sputum or wheezing on regular basis, although she is short of breath with stairs or walking quickly. She has been careful during the pandemic, observing social distancing, wearing a mask, lives alone and has few visitors, mainly her son and granddaughter 15 years old who attends school in person twice a week. She had her first COVID vaccination in January; she developed a sore throat and coughing on January 28. She thought she may be having a COPD exacerbation. On FridayJanuary 29 she developed some sinus drainage, fever, shakes and chills. On FridayJanuary 30 she was tested, and was confirmed on Jan 31 positive for COVID. She was slowly worsening. She called her primary doctor who started her on prednisone. By the upcoming FridayFebruary 05 she felt that she had a heaviness on her chest like a ?loaf of bread sitting there, as she makes a hand gesture - Sandhu sign. First CXR in ED February 07 showed bilateral patchy airspace disease consistent with pneumonia. She required supplemental O2,
[2021-02-11] MEDS: REMDESIVIR 100 MG/NS 250 ML 100 MG/250 ML BAG 250 MG IVPB (21:21)
[2021-02-11] MEDS: INSULIN GLARGINE (*BKC) 100 UNITS/ML 25 UNITS SUB-Q (21:30)
[2021-02-11] MEDS: MELATONIN 3 MG TABLET PO (21:35)
[2021-02-11 21:46] LABS: Glucose Point of Care 271 (65-105)
[2021-02-12] VITALS (21 sets, daily range): BP systolic 106–126; BP diastolic 54–62; PULSE 70–97; RESP 16–20; TEMP 36.2–36.8; O2SAT 84–94
--- NOTE | 2021-02-12 | ECHO_ITS ---
Patient Info Name: Mariza Garcia Age: 70 years : 1950 Gender: Female Ht: 63 in Wt: 261 lbs BSA: 2.36 m2 HR: 84 bpm BP: 121 / 54 mmHg Technical Quality: Fair Exam Date: 02/12/2021 11:44 AM Exam Location: [facility] Pulmonary Patient Status: Inpatient Admit Date: 02/07/2021 Staff Ordering Physician: Sol Carpenter MD Film Or Tape Librarian: Juan Francisco Lira RDCS, RT Attending Provider: Rosamaria Ascencio PA-C Referring Physician: Pauline HARRIS; Exam Type: CA echo doppler color flow Study Info Indications R06.02 - Shortness of breath Complete two-dimensional, color flow and Doppler transthoracic echocardiogram is performed. Summary 1. Complete two-dimensional, color flow and Doppler transthoracic echocardiogram is performed. 2. Left ventricular chamber dimension is normal. 3. Left ventricular systolic function is normal, estimated at 55-60%. 4. There is mildly increased left ventricular wall thickness. 5. The left ventricular diastolic function is grade I diastolic dysfunction. 6. E/e' 6 is not elevated. 7. There is trace tricuspid valve regurgitation. 8. There is trace pulmonic regurgitation. Left Ventricle E/e' 6 is not elevated. Left ventricular chamber dimension is normal. Left ventricular systolic function is normal, estimated at 55-60%. There is mildly increased left ventricular wall thickness. The left ventricular diastolic function is grade I diastolic dysfunction. Right Ventricle TAPSE is not performed. Right ventricular chamber dimension is normal. Right ventricular systolic function is normal. Left Atria Left atrial chamber dimension is normal. Right Atria Right atrial chamber dimension is normal. Aortic Valve The aortic valve is trileaflet. There is no aortic valve stenosis. There is no aortic valve regurgitation. Pulmonic Valve There is trace pulmonic regurgitation. Mitral Valve There is no mitral valve stenosis. There is no mitral valve regurgitation. Tricuspid Valve RVSP is not calculated due to an inadequate TR jet. There is trace tricuspid valve regurgitation. Pericardium/Pleural There is no pericardial effusion. Inferior Vena Cava Normal inferior vena cava with >50% collapse upon inspiration consistent with normal right atrial pressure, 5 mmHg. Aorta The aortic root size at the sinus of Valsalva is normal. Left Ventricular Outflow Tract Name Value Normal LVOT 2D LVOT Diameter 2.0 cm LVOT Doppler LVOT Peak Velocity 72 cm/s LVOT Peak Gradient 2 mmHg LVOT Mean Gradient 1 mmHg LVOT VTI 13 cm LVOT VTI/AV VTI Ratio 0.7 LVOT Stroke Volume 42 ml LVOT CO 3.6 l/min LVOT CI 1.5 l/min/m2 Mitral Valve Name Value Normal MV Doppler
[2021-02-12] MEDS: IPRATROPIUM BR 0.02% INH SOLN 0.5 MG/2.5 ML VIAL INHALATION ×4 (01:11→20:10)
[2021-02-12] MEDS: ALBUTEROL SULFATE NEB 2.5 MG/0.5 ML INH 5 MG INHALATION ×2 (01:11→09:04)
[2021-02-12 06:51] LABS: Alanine Aminotransferase 176 U/L (4-35); Albumin Level 2.9 g/dL (3.5-5.1); Alkaline Phosphatase 101 U/L (38-126); Anion Gap 4 mmol/L (8-16); Aspartate Amino Transferase 79 U/L (14-36); Bilirubin,Total 0.4 mg/dL (0.2-1.3); Blood Urea Nitrogen 35 mg/dL (7-17); Carbon Dioxide 29 mmol/L (22-30); Chloride 104 mmol/L (98-107); Estimated CRCL calculation 70 ml/min; Estimated Glomerular Filt Rate > 60; Glucose 233 mg/dL (65-105); Magnesium 1.9 mg/dL (1.6-2.3); Potassium 4.1 mmol/L (3.4-5.0); Sodium 137 mmol/L (137-145)
[2021-02-12] MEDS: guaiFENesin/DEXTROMETHORPHAN 10 ML UDC PO (06:51)
[2021-02-12 07:59] LABS: Glucose Point of Care 207 (65-105)
[2021-02-12] MEDS: INSULIN ASPART (*BKC) 100 UNITS/ML SUB-Q ×3 (08:05→16:55)
[2021-02-12] MEDS: INSULIN ASPART (*BKC) 100 UNITS/ML 8 UNITS SUB-Q ×3 (08:06→16:55)
[2021-02-12] MEDS: UMECLIDINIUM/VILANTEROL 62.5-25 MCG ELLIPTA 1 PUFF INHALATION (08:12)
[2021-02-12] MEDS: METOPROLOL SUCCINATE EXT REL 25 MG TABCR PO (08:13)
[2021-02-12] MEDS: ZINC SULFATE 220 MG CAPSULE PO (08:13)
[2021-02-12] MEDS: PANTOPRAZOLE 40 MG TABLET PO (08:13)
[2021-02-12] MEDS: CHOLECALCIFEROL 1,000 UNITS TABLET 1000 UNITS PO (08:14)
[2021-02-12] MEDS: APIXABAN 5 MG TABLET 10 MG PO ×2 (08:14→21:16)
[2021-02-12] MEDS: ASCORBIC ACID 500 MG TABLET PO (08:14)
[2021-02-12] MEDS: MAGNESIUM OXIDE 200 MG TABLET PO ×2 (08:14→21:17)
[2021-02-12] MEDS: CALCIUM CARBONATE (OSCAL) 500 MG TABLET PO (08:15)
[2021-02-12] MEDS: LOSARTAN POTASSIUM 50 MG TABLET PO (08:15)
[2021-02-12] MEDS: DEXAMETHASONE SOD PHOS INJ 4 MG/ML VIAL 6 MG IV PUSH (08:15)
--- NOTE | 2021-02-12 10:29 | PM.PNPUL ---
Progress Note: A&P Assessment and Plan (1) History of obstructive sleep apnea: Code(s): Z86.69 - Personal history of other diseases of the nervous system and sense organs Status: Acute Assessment and Plan: 02/11 had UPPP 2006 which helped for a while; wakes herself at times snoring, naps in the day, not interested in getting treatment for obstructive sleep apnea at this point; BMI is 46.1; she may require O2 at night especially with this episode of COVID and acute hypoxemic respiratory failure. 02/12 ApneaLink prior to discharge. (2) Pulmonary embolism: Qualifiers: Pulmonary embolism type: unspecified Chronicity: unspecified Acute cor pulmonale presence: unspecified Qualified Code(s): I26.99 - Other pulmonary embolism without acute cor pulmonale Code(s): I26.99 - Other pulmonary embolism without acute cor pulmonale Status: Acute Assessment and Plan: 02/11 CTA 02/08/2021 small filling defect seen on a larger left pulmonary artery, may be consistent with an acute or chronic web, now on apixaban 10 mg Q 12 hours x 7 days then 5 mg bid. LE dopplers are negative Feb 07. She has not had an echo, which I will order for following possible pulmonary hypertension. She has COVID, COPD, untreated GUALBERTO. 02/12 Echo pending. (3) Acute respiratory failure due to COVID-19: Code(s): U07.1 - COVID-19; J96.00 - Acute respiratory failure, unspecified whether with hypoxia or hypercapnia Status: Acute Assessment and Plan: COVID pneumonia. On remdesivir (start), dexamethasone (started 02/06), 02/11 Her O2 need increased, with improvement today, weaned down to 5 L/min at rest, was at 13 L/min. She is feeling better, however says that she is too weak to go home tomorrow, maybe by Friday. 02/12 On 7 L high flow NC with saturations 89-90%, follow. Titrate FIO2 to maintain sats 90-94%. (4) COPD (chronic obstructive pulmonary disease): Qualifiers: COPD type: unspecified COPD Qualified Code(s): J44.9 - Chronic obstructive pulmonary disease, unspecified Code(s): J44.9 - Chronic obstructive pulmonary disease, unspecified Status: Chronic Assessment and Plan: 02/11 has been managed on Anoro one puff a day, no need for rescue medication; last PFT was 05/09/2018 with normal spirometry, air trapping, decreased DLCO. She will need PFTs 6 - 8 weeks after discharge, and home O2 study prior to discharge. 02/12 No wheezes, convinue dexamethsone 6 Q day, change albuterol to 2.5 Q 6, continue ipratroprium 0.5 mg neb Q 6. DC anoro ellipta while on BAIRON and ipratroprium. Subjective Date/time seen: 02/12/21 10:29 Interval history: 02/11 Mariza Garcia is a 70 yo female with COPD, quit tobacco 16 years ago. She is controlled on Anoro Ellipta one puff a day, no rescue medication. She does not have cough, sputum or wheezing on regular basis, although she is short of breath with stairs or walking quickly. She has been careful during the pandemic, observing social distancing, wearing a mask, lives alone and has few visitors, mainly her son and granddaughter 15 years old who attends school in person twice a week. She had her first COVID vaccination in January; she developed a sore throat and coughing on January 28. She thought she may be having a COPD exacerbation. On FridayJanuary 29 she developed some sinus drainage, fever, shakes and chills. On FridayJanuary 30 she was tested, and was confirmed on Jan 31 positive for COVID. She was slowly worsening. She called her primary doctor who started her on prednisone. By the upcoming FridayFebruary 05 she felt that she had a heaviness on her chest like a ?loaf of bread sitting there, as she makes a hand gesture - Sandhu sign. First CXR in ED February 07 showed bilateral patchy airspace disease consistent with pneumonia. She required supplemental O2, initially on 4L/min, increased upt to 13 L/min February 10, then February 11, decreased to 5 L/min, better. D-d
[2021-02-12 12:03] LABS: Glucose Point of Care 232 (65-105)
[2021-02-12] MEDS: ALBUTEROL SULFATE NEB 2.5 MG/0.5 ML INH INHALATION ×2 (14:46→20:10)
--- NOTE | 2021-02-12 14:58 | PCDIET ---
Nutrition Follow-Up Complete: Predicted suboptimal nutrient intake related to COVID-19 as evidenced by patient reported weight loss of 15 pounds in 2 weeks. Patient to eat 75% of meals or more on current diet order. Goal: Goal met. Continue goal. Pt current nutrition is DBCC and Ensure compact BID Nutrition recommendation: agree Last recorded weight is 118.7 kg (recommend new wt) Bowel Motility: Labs Reviewed:ALT/ALT 79/176, Protein 6.0, BUN 35, Albumin 2.9 Meds Noted: Decadron, Remdesevir, Zinc, Vit C and D, Dulcolax, Mg Oxide, Melatonin, Protonix, Miralax Additional Notes: Pt on appropriate diet and eating well. Current intake is 90-100% of all meals. Recommend updated pt. We will continue to Monitor patients labs, weight, medications, and oral intake every 5 days.
[2021-02-12 16:55] LABS: Glucose Point of Care 245 (65-105)
[2021-02-12] MEDS: MELATONIN 3 MG TABLET PO (21:17)
[2021-02-12] MEDS: REMDESIVIR 100 MG/NS 250 ML 100 MG/250 ML BAG 250 MG IVPB (21:18)
[2021-02-12] MEDS: INSULIN GLARGINE (*BKC) 100 UNITS/ML 25 UNITS SUB-Q (21:30)
[2021-02-12 21:50] LABS: Glucose Point of Care 236 (65-105)
--- NOTE | 2021-02-12 21:54 | P.PNIM_ITS ---
Progress Note: A&P Assessment and Plan (1) Acute respiratory failure due to COVID-19: Code(s): U07.1 - COVID-19; J96.00 - Acute respiratory failure, unspecified whether with hypoxia or hypercapnia Status: Acute Assessment and Plan: * Patient presents with worsening shortness of breath, fatigue; CXR shows patchy PETROS airspace disease; COVID positive 01/30/21. * Continue dexamethasone (day 6); remdesivir (day 6). Renewed remdesivir for another 5 days (with close LFT monitoring). * Continue supplemental O2 and wean as tolerated to keep O2 saturations around 89-95%. Tolerating 6L/min high flow NC, improved from 13L/min yesterday. * Continue supportive care with Tylenol for fevers, bronchodilators, Robitussin, incentive spirometer, supplementation of Zinc, vitamins C and D. * Sinus tachycardia resolved today, tolerating activity better. (2) Pulmonary embolism: Qualifiers: Pulmonary embolism type: unspecified Chronicity: unspecified Acute cor pulmonale presence: unspecified Qualified Code(s): I26.99 - Other pulmonary embolism without acute cor pulmonale Code(s): I26.99 - Other pulmonary embolism without acute cor pulmonale Status: Acute Assessment and Plan: * D dimer 1.31. CTA chest 02/08 demonstrates a small filling defect in left lower lobe, age indeterminate PE (characteristics more consistent with a resolving PE than an acute PE but cannot rule out acute PE that is tiny/oddly shaped). Dopplers 02/07 show no DVT PETROS legs. * Continue Eliquis. Repeat CTA chest in 3-6 months is recommended. (3) Hemoglobin A1c less than 7.0%: Code(s): R73.09 - Other abnormal glucose Status: Acute Assessment and Plan: * A1c 6.6% (up from 5.9% in Oct 2020).. Sugars have improved some with insulin but still elevated, increase insulin. * 02/09: Started Lantus 20U HS and Novolog 6 units SRINI TIDWM plus SSI. * 02/11: Increased to 25 units Lantus HS and 8 Novolog SRINI plus SSI. * 02/12: Increase mealtime insulin starting tomorrow AM, sugars still in 200s. * Diabetic diet. Continue to monitor accu-cheks. * Placed consultation for diabetes education. (4) COPD (chronic obstructive pulmonary disease): Qualifiers: COPD type: unspecified COPD Qualified Code(s): J44.9 - Chronic obstructive pulmonary disease, unspecified Code(s): J44.9 - Chronic obstructive pulmonary disease, unspecified Status: Chronic Assessment and Plan: * Without wheezing does not appear to have COPD exacerbation. * Continue her home Anoro inhaler. Continue nebulized bronchodilator therapy for now. (5) UTI (urinary tract infection): Qualifiers: Hematuria presence: without hematuria Urinary tract infection type: acute cystitis Qualified Code(s): N30.00 - Acute cystitis without hematuria Code(s): N39.0 - Urinary tract infection, site not specified Status: Acute Assessment and Plan: * Urine culture growing Klebsiella. Blood cultures pending with no growth. Completed 5-day course of ceftriaxone this AM. (6) Essential (primary) hypertension: Code(s): I10 - Essential (primary) hypertension Status: Chronic Assessment and Plan: * BPs on lower end but stable, last 106/54 maintained on her home metoprolol and losartan. Hold spironolactone for now. Monitor BP and adjust treatment as needed. (7) Jami
--- NOTE | 2021-02-12 21:54 | PM.IMPN ---
Progress Note: A&P Assessment and Plan (1) Acute respiratory failure due to COVID-19: Code(s): U07.1 - COVID-19; J96.00 - Acute respiratory failure, unspecified whether with hypoxia or hypercapnia Status: Acute Assessment and Plan: Patient presents with worsening shortness of breath, fatigue; CXR shows patchy PETROS airspace disease; COVID positive 01/30/21. Continue dexamethasone (day 6); remdesivir (day 6). Renewed remdesivir for another 5 days (with close LFT monitoring). Continue supplemental O2 and wean as tolerated to keep O2 saturations around 89-95%. Tolerating 6L/min high flow NC, improved from 13L/min yesterday. Continue supportive care with Tylenol for fevers, bronchodilators, Robitussin, incentive spirometer, supplementation of Zinc, vitamins C and D. Sinus tachycardia resolved today, tolerating activity better. (2) Pulmonary embolism: Qualifiers: Pulmonary embolism type: unspecified Chronicity: unspecified Acute cor pulmonale presence: unspecified Qualified Code(s): I26.99 - Other pulmonary embolism without acute cor pulmonale Code(s): I26.99 - Other pulmonary embolism without acute cor pulmonale Status: Acute Assessment and Plan: D dimer 1.31. CTA chest 02/08 demonstrates a small filling defect in left lower lobe, age indeterminate PE (characteristics more consistent with a resolving PE than an acute PE but cannot rule out acute PE that is tiny/oddly shaped). Dopplers 02/07 show no DVT PETROS legs. Continue Eliquis. Repeat CTA chest in 3-6 months is recommended. (3) Hemoglobin A1c less than 7.0%: Code(s): R73.09 - Other abnormal glucose Status: Acute Assessment and Plan: A1c 6.6% (up from 5.9% in Oct 2020).. Sugars have improved some with insulin but still elevated, increase insulin. 02/09: Started Lantus 20U HS and Novolog 6 units SRINI TIDWM plus SSI. 02/11: Increased to 25 units Lantus HS and 8 Novolog SRINI plus SSI. 02/12: Increase mealtime insulin starting tomorrow AM, sugars still in 200s. Diabetic diet. Continue to monitor accu-cheks. Placed consultation for diabetes education. (4) COPD (chronic obstructive pulmonary disease): Qualifiers: COPD type: unspecified COPD Qualified Code(s): J44.9 - Chronic obstructive pulmonary disease, unspecified Code(s): J44.9 - Chronic obstructive pulmonary disease, unspecified Status: Chronic Assessment and Plan: Without wheezing does not appear to have COPD exacerbation. Continue her home Anoro inhaler. Continue nebulized bronchodilator therapy for now. (5) UTI (urinary tract infection): Qualifiers: Hematuria presence: without hematuria Urinary tract infection type: acute cystitis Qualified Code(s): N30.00 - Acute cystitis without hematuria Code(s): N39.0 - Urinary tract infection, site not specified Status: Acute Assessment and Plan: Urine culture growing Klebsiella. Blood cultures pending with no growth. Completed 5-day course of ceftriaxone this AM. (6) Essential (primary) hypertension: Code(s): I10 - Essential (primary) hypertension Status: Chronic Assessment and Plan: BPs on lower end but stable, last 106/ maintained on her home metoprolol and losartan. Hold spironolactone for now. Monitor BP and adjust treatment as needed. (7) Transaminitis: Code(s): R74.01 - Elevation of levels of liver transaminase levels Status: Acute Assessment and Plan: Suspect may be related to viral illness with COVID. LFTs are reviewed 02/12; continue to monitor closely while on Remdesivir. Discussed risk vs benefit with patient and family. Hold statin therapy for now.
[2021-02-13] VITALS (28 sets, daily range): BP systolic 102–146; BP diastolic 61–62; PULSE 72–103; RESP 18–22; TEMP 36.3–36.6; O2SAT 90–97
[2021-02-13] MEDS: IPRATROPIUM BR 0.02% INH SOLN 0.5 MG/2.5 ML VIAL INHALATION ×5 (01:18→20:12)
[2021-02-13] MEDS: ALBUTEROL SULFATE NEB 2.5 MG/0.5 ML INH INHALATION ×5 (01:19→20:11)
[2021-02-13 06:21] LABS: Hematocrit 39.5 % (37.0-47.0); Hemoglobin 12.8 g/dL (12.0-15.0); Mean Corpuscular HGB Conc 32.4 g/dl (32-36); Mean Corpuscular Hemoglobin 29.7 pg (26-34); Mean Corpuscular Volume 91.6 fl (80-100); Mean Platelet Volume 9.8 fl (7.4-10.4); Platelet Count Result 288 k/mm3 (150-375); Red Blood Count 4.31 M/mm3 (4.2-5.4); Red Cell Distribution Width 13.6 % (11.5-14.5); White Blood Count 11.8 K/mm3 (4.5-10.0)
[2021-02-13 06:41] LABS: Anion Gap 3 mmol/L (8-16); Blood Urea Nitrogen 39 mg/dL (7-17); CRP < 0.5 mg/dL (<1.0); Calcium 8.6 mg/dL (8.4-10.2); Carbon Dioxide 29 mmol/L (22-30); Chloride 103 mmol/L (98-107); Estimated CRCL calculation 70 ml/min; Estimated Glomerular Filt Rate > 60; Glucose 224 mg/dL (65-105); Sodium 135 mmol/L (137-145)
[2021-02-13 07:05] LABS: Alanine Aminotransferase 226 U/L (4-35)
[2021-02-13 07:13] LABS: Band Neutrophils Percent 1 % (0-6); Lymphocytes Absolute Manual 0.94 K/mm3 (1.1-4.5); Monocytes Absolute Manual 0.47 K/mm3 (0.1-0.90); Monocytes Percent Manual 4 % (3-9); Neutrophils Absolute Manual 10.38 K/mm3 (1.7-7.2); Neutrophils Percent Manual 87 % (46-73); Platelet Estimate Adequate (Adequate); Total Cells Counted 100
[2021-02-13 08:19] LABS: Glucose Point of Care 216 (65-105)
[2021-02-13] MEDS: METOPROLOL SUCCINATE EXT REL 25 MG TABCR PO (09:05)
[2021-02-13] MEDS: CHOLECALCIFEROL 1,000 UNITS TABLET 1000 UNITS PO (09:05)
[2021-02-13] MEDS: PANTOPRAZOLE 40 MG TABLET PO (09:07)
[2021-02-13] MEDS: ASCORBIC ACID 500 MG TABLET PO (09:07)
[2021-02-13] MEDS: ZINC SULFATE 220 MG CAPSULE PO (09:07)
[2021-02-13] MEDS: CALCIUM CARBONATE (OSCAL) 500 MG TABLET PO (09:08)
[2021-02-13] MEDS: MAGNESIUM OXIDE 200 MG TABLET PO ×2 (09:08→21:04)
[2021-02-13] MEDS: LOSARTAN POTASSIUM 50 MG TABLET PO (09:08)
[2021-02-13] MEDS: DEXAMETHASONE SOD PHOS INJ 4 MG/ML VIAL 6 MG IV PUSH (09:08)
[2021-02-13] MEDS: APIXABAN 5 MG TABLET 10 MG PO ×2 (09:08→21:05)
[2021-02-13] MEDS: polyethylene glycoL 3350 17 GM POWD.PACK PO (09:09)
[2021-02-13] MEDS: INSULIN ASPART (*BKC) 100 UNITS/ML SUB-Q ×2 (09:10→17:11)
[2021-02-13] MEDS: INSULIN ASPART (*BKC) 100 UNITS/ML 10 UNITS SUB-Q ×3 (09:11→17:12)
--- NOTE | 2021-02-13 10:26 | PM.PNPUL ---
Progress Note: A&P Assessment and Plan (1) History of obstructive sleep apnea: Code(s): Z86.69 - Personal history of other diseases of the nervous system and sense organs Status: Acute Assessment and Plan: 02/11 had UPPP 2006 which helped for a while; wakes herself at times snoring, naps in the day, not interested in getting treatment for obstructive sleep apnea at this point; BMI is 46.1; she may require O2 at night especially with this episode of COVID and acute hypoxemic respiratory failure. 02/13 [facility] prior to discharge to qualify her for home oxygen. (2) Pulmonary embolism: Qualifiers: Acute cor pulmonale presence: unspecified Chronicity: unspecified Pulmonary embolism type: unspecified Qualified Code(s): I26.99 - Other pulmonary embolism without acute cor pulmonale Code(s): I26.99 - Other pulmonary embolism without acute cor pulmonale Status: Acute Assessment and Plan: 02/11 CTA 02/08/2021 small filling defect seen on a larger left pulmonary artery, may be consistent with an acute or chronic web, now on apixaban 10 mg Q 12 hours x 7 days then 5 mg bid. LE dopplers are negative Feb 07. She has not had an echo, which I will order for following possible pulmonary hypertension. 02/12 Echo without evidence of pulmonay hypertension of RV dilation. (3) Acute respiratory failure due to COVID-19: Code(s): U07.1 - COVID-19; J96.00 - Acute respiratory failure, unspecified whether with hypoxia or hypercapnia Status: Acute Assessment and Plan: COVID pneumonia. On remdesivir (start), dexamethasone (started 02/06), 02/11 Her O2 need increased, with improvement today, weaned down to 5 L/min at rest, was at 13 L/min. She is feeling better, however says that she is too weak to go home tomorrow, maybe by Friday. 02/12 On 7 L high flow NC with saturations 89-90%, follow. Titrate FIO2 to maintain sats 90-94%. 02/13 On 6 L high flow NC with saturations 94%, follow. Titrate for sats 90-94%. Continue remdesivir and dexamethasone for total 10 days. Follow ALT and DC if > 10 X normal level per NIH treatment guidelines (Remdesivir section on page 84 of 274) Will need home oxygen assessement prior to discharge. I do not feel that he has any complicating respiratory issues that need to be addressed at this time. At this point is that it it is unclear if patient will recover completely from a respiratory viewpoint. Since some of the other symptoms have resolved and the respiratory symptoms have improved I am hopeful to see continued improvement. I explained that we do not have any additional testing that will give us a an idea about the prognosis for complete recover. The patient should continue to remain active as long as they are comfortable from a respiratory viewpoint. Patient can be followed up by his primary physician who can refer back to us if any new pulmonary issues arise. (4) COPD (chronic obstructive pulmonary disease): Qualifiers: COPD type: unspecified COPD Qualified Code(s): J44.9 - Chronic obstructive pulmonary disease, unspecified Code(s): J44.9 - Chronic obstructive pulmonary disease, unspecified Status: Chronic Assessment and Plan: 02/11 has been managed on Anoro one puff a day, no need for rescue medication; last PFT was 05/09/2018 with normal spirometry, air trapping, decreased DLCO. She will need PFTs 6 - 8 weeks after discharge, and home O2 study prior to discharge. 02/12 No wheezes, convinue dexamethsone 6 Q day, change albuterol to 2.5 Q 6, continue ipratroprium 0.5 mg neb Q 6. DC anoro ellipta while on BAIRON and ipratroprium. 02/13 No wheezes, convinue dexamethsone 6 Q day for 10 days total , change albuterol to 2.5 Q 4 hours while awake and ipratroprium 0.5 mg neb Q 4 H while awake to help her sleep. Eventually discharge home on her Anoro ellipta at 1 uff Q day. Will sign off, discussed with Maddi Chatman, call with any questions.
[2021-02-13 11:52] LABS: Glucose Point of Care 194 (65-105)
--- NOTE | 2021-02-13 15:09 | PM.IMPN ---
Progress Note: A&P Assessment and Plan (1) Acute respiratory failure due to COVID-19: Code(s): U07.1 - COVID-19; J96.00 - Acute respiratory failure, unspecified whether with hypoxia or hypercapnia Status: Acute Assessment and Plan: COVID positive 01/30/21. -Continue dexamethasone (day 7) -discontinue Remdesivir (had 6 days) because ALT > 5 times the limit -Continue supplemental O2 and wean as tolerated to keep O2 saturations around 89-94% -She is down to 2L today which is a lot of improvement compared to this weekend -Will need home o2 eval soon. Pulmonology recommends if she requires oxygen with activity, use the same amount L for nighttime as well -Sinus tachycardia resolved today, tolerating activity better. (2) Pulmonary embolism: Qualifiers: Pulmonary embolism type: unspecified Chronicity: unspecified Acute cor pulmonale presence: unspecified Qualified Code(s): I26.99 - Other pulmonary embolism without acute cor pulmonale Code(s): I26.99 - Other pulmonary embolism without acute cor pulmonale Status: Acute Assessment and Plan: CTA chest 02/08 demonstrated a small filling defect in left lower lobe, age indeterminate PE (characteristics more consistent with a resolving PE than an acute PE but cannot rule out acute PE that is tiny/oddly shaped) - Dopplers 02/07 show no DVT PETROS legs. -Continue Eliquis. Repeat CTA chest in 3-6 months is recommended. (3) Hemoglobin A1c less than 7.0%: Code(s): R73.09 - Other abnormal glucose Status: Acute Assessment and Plan: A1c 6.6% (up from 5.9% in Oct 2020) 02/09: Started Lantus 20U HS and Novolog 6 units SRINI TIDWM plus SSI. 02/11: Increased to 25 units Lantus HS and 8 Novolog SRINI plus SSI. 02/12: 10u with meals with 25u of lantus -This will need to be discontinued once off the steroids as she is not on anything at home and will likely drop once steroids are discontinued. -Diabetic diet. Continue to monitor accu-cheks. (4) COPD (chronic obstructive pulmonary disease): Qualifiers: COPD type: unspecified COPD Qualified Code(s): J44.9 - Chronic obstructive pulmonary disease, unspecified Code(s): J44.9 - Chronic obstructive pulmonary disease, unspecified Status: Chronic Assessment and Plan: Without wheezing does not appear to have COPD exacerbation. -Continue her home Anoro inhaler. Continue nebulized bronchodilator therapy for now. (5) UTI (urinary tract infection): Qualifiers: Hematuria presence: without hematuria Urinary tract infection type: acute cystitis Qualified Code(s): N30.00 - Acute cystitis without hematuria Code(s): N39.0 - Urinary tract infection, site not specified Status: Acute Assessment and Plan: Urine culture growing Klebsiella - Blood cultures pending with no growth -She completed 5-day course of ceftriaxone (6) Essential (primary) hypertension: Code(s): I10 - Essential (primary) hypertension Status: Chronic Assessment and Plan: Last bp 120/62 -Continue metoprolol and losartan. - Hold spironolactone for now. -Monitor BP and adjust treatment as needed. (7) Transaminitis: Code(s): R74.01 - Elevation of levels of liver transaminase levels Status: Acute Assessment and Plan: Suspect may be related to viral illness with COVID -LFT higher today 226 which is >5x the normal limit so the Remdesivir has been held -Monitor -Pt has no hx of hepatitis (8) Chronic GERD: Code(s): K21.9 - Gastro-esophageal reflux disease without esophagitis Status: Chronic Assessment and Plan: Continue PPI, no acute issues. (9) Arthritis of shoulder region, right: Code(s): M19.011 - Primary osteoarthritis, right shoulder Status: Chronic Assessment and Plan: Follows with Dr Warner. She reports chronic pain to R shoulder due to arthritis. She no
--- NOTE | 2021-02-13 15:22 | PCOTNOTE ---
Patient not seen for OT today. Will continue plan of care tomorrow, 02/14/2021.
[2021-02-13] MEDS: INSULIN GLARGINE (*BKC) 100 UNITS/ML 25 UNITS SUB-Q (21:04)
[2021-02-13] MEDS: ACETAMINOPHEN 325 MG TABLET 650 MG PO (21:06)
[2021-02-13 22:16] LABS: Glucose Point of Care 325 (65-105)
[2021-02-13 22:32] LABS: Glucose Point of Care 246 (65-105)
[2021-02-14] VITALS (17 sets, daily range): BP systolic 100–117; BP diastolic 58–67; PULSE 67–109; RESP 16–20; TEMP 36.4–36.9; O2SAT 90–96
[2021-02-14 06:13] LABS: Hematocrit 41.1 % (37.0-47.0); Hemoglobin 13.5 g/dL (12.0-15.0); Mean Corpuscular HGB Conc 32.8 g/dl (32-36); Mean Corpuscular Hemoglobin 29.9 pg (26-34); Mean Corpuscular Volume 90.9 fl (80-100); Mean Platelet Volume 10.1 fl (7.4-10.4); Platelet Count Result 331 k/mm3 (150-375); Red Blood Count 4.52 M/mm3 (4.2-5.4); Red Cell Distribution Width 13.6 % (11.5-14.5)
[2021-02-14 06:29] LABS: Alanine Aminotransferase 284 U/L (4-35); Albumin Level 2.9 g/dL (3.5-5.1); Alkaline Phosphatase 113 U/L (38-126); Anion Gap 3 mmol/L (8-16); Aspartate Amino Transferase 134 U/L (14-36); Bilirubin,Total 0.4 mg/dL (0.2-1.3); Blood Urea Nitrogen 40 mg/dL (7-17); CRP < 0.5 mg/dL (<1.0); Calcium 8.6 mg/dL (8.4-10.2); Carbon Dioxide 28 mmol/L (22-30); Chloride 103 mmol/L (98-107); Estimated CRCL calculation 70 ml/min; Estimated Glomerular Filt Rate > 60; Glucose 204 mg/dL (65-105); Magnesium 2.1 mg/dL (1.6-2.3); Potassium 4.1 mmol/L (3.4-5.0); Sodium 134 mmol/L (137-145)
[2021-02-14 07:17] LABS: Hepatitis B Surface Antigen Negative (Negative)
[2021-02-14 07:22] LABS: HAV RESULT Negative (Negative); Hepatitis B Core IgM Result Negative (Negative)
[2021-02-14 07:34] LABS: Hepatitis C Virus Antibody Negative (Negative)
[2021-02-14 07:55] LABS: Glucose Point of Care 202 (65-105)
[2021-02-14] MEDS: INSULIN ASPART (*BKC) 100 UNITS/ML 10 UNITS SUB-Q ×3 (08:04→16:59)
[2021-02-14] MEDS: INSULIN ASPART (*BKC) 100 UNITS/ML SUB-Q ×2 (08:04→17:00)
[2021-02-14] MEDS: METOPROLOL SUCCINATE EXT REL 25 MG TABCR PO (08:07)
[2021-02-14] MEDS: ZINC SULFATE 220 MG CAPSULE PO (08:07)
[2021-02-14] MEDS: ASCORBIC ACID 500 MG TABLET PO (08:08)
[2021-02-14] MEDS: CALCIUM CARBONATE (OSCAL) 500 MG TABLET PO (08:08)
[2021-02-14] MEDS: CHOLECALCIFEROL 1,000 UNITS TABLET 1000 UNITS PO (08:08)
[2021-02-14] MEDS: MAGNESIUM OXIDE 200 MG TABLET PO ×2 (08:08→20:28)
[2021-02-14] MEDS: APIXABAN 5 MG TABLET 10 MG PO ×2 (08:08→20:29)
[2021-02-14] MEDS: LOSARTAN POTASSIUM 50 MG TABLET PO (08:09)
[2021-02-14] MEDS: PANTOPRAZOLE 40 MG TABLET PO (08:09)
[2021-02-14] MEDS: DEXAMETHASONE SOD PHOS INJ 4 MG/ML VIAL 6 MG IV PUSH (08:09)
[2021-02-14] MEDS: IPRATROPIUM BR 0.02% INH SOLN 0.5 MG/2.5 ML VIAL INHALATION ×3 (08:23→20:06)
[2021-02-14] MEDS: ALBUTEROL SULFATE NEB 2.5 MG/0.5 ML INH INHALATION ×3 (08:23→20:06)
[2021-02-14 12:35] LABS: Glucose Point of Care 168 (65-105)
--- NOTE | 2021-02-14 12:49 | PM.IMPN ---
Progress Note: A&P Assessment and Plan (1) Acute respiratory failure due to COVID-19: Code(s): U07.1 - COVID-19; J96.00 - Acute respiratory failure, unspecified whether with hypoxia or hypercapnia Status: Acute Assessment and Plan: COVID positive 01/30/21. -Continue dexamethasone (day 8) -Remdesivir discontinued 02/13 (had 6 days) due to elevated liver enzymes. -Continue supplemental O2 and wean as tolerated to keep O2 saturations around 89-94% -She remains at 2L/min today which is a lot of improvement compared to this weekend -Will need home O2 eval soon. Pulmonology recommends if she requires oxygen with activity, use the same amount L for nighttime as well. -Sinus tachycardia this morning with activity, HR stable since then. (2) Pulmonary embolism: Qualifiers: Pulmonary embolism type: unspecified Chronicity: unspecified Acute cor pulmonale presence: unspecified Qualified Code(s): I26.99 - Other pulmonary embolism without acute cor pulmonale Code(s): I26.99 - Other pulmonary embolism without acute cor pulmonale Status: Acute Assessment and Plan: CTA chest 02/08 demonstrated a small filling defect in left lower lobe, age indeterminate PE (characteristics more consistent with a resolving PE than an acute PE but cannot rule out acute PE that is tiny/oddly shaped) - Dopplers 02/07 show no DVT PETROS legs. -Continue Eliquis. Repeat CTA chest in 3-6 months is recommended. (3) Hemoglobin A1c less than 7.0%: Code(s): R73.09 - Other abnormal glucose Status: Acute Assessment and Plan: A1c 6.6% (up from 5.9% in Oct 2020) 02/09: Started Lantus 20U HS and Novolog 6 units SRINI TIDWM plus SSI. 02/11: Increased to 25 units Lantus HS and 8 Novolog SRINI plus SSI. 3/15 through today: 10u with meals with 25u of lantus -This will need to be discontinued once off the steroids as she is not on anything at home and will likely drop once steroids are discontinued. -Diabetic diet. Continue to monitor accu-cheks. (4) COPD (chronic obstructive pulmonary disease): Qualifiers: COPD type: unspecified COPD Qualified Code(s): J44.9 - Chronic obstructive pulmonary disease, unspecified Code(s): J44.9 - Chronic obstructive pulmonary disease, unspecified Status: Chronic Assessment and Plan: Without wheezing does not appear to have COPD exacerbation. -Continue her home Anoro inhaler. Continue nebulized bronchodilator therapy for now. (5) UTI (urinary tract infection): Qualifiers: Hematuria presence: without hematuria Urinary tract infection type: acute cystitis Qualified Code(s): N30.00 - Acute cystitis without hematuria Code(s): N39.0 - Urinary tract infection, site not specified Status: Acute Assessment and Plan: Urine culture growing Klebsiella - Blood cultures final with no growth -She completed 5-day course of ceftriaxone (6) Essential (primary) hypertension: Code(s): I10 - Essential (primary) hypertension Status: Chronic Assessment and Plan: Blood pressure is stable, last 117/67. -Continue metoprolol and losartan. - Hold spironolactone for now. -Monitor BP and adjust treatment as needed. (7) Transaminitis: Code(s): R74.01 - Elevation of levels of liver transaminase levels Status: Acute Assessment and Plan: Suspect may be related to viral illness with COVID -LFTs >5x the normal limit so the Remdesivir has been held -Monitor -Hepatitis panel negative (8) Chronic GERD: Code(s): K21.9 - Gastro-esophageal reflux disease without esophagitis Status: Chronic Assessment and Plan: Co
[2021-02-14 16:22] LABS: Glucose Point of Care 331 (65-105)
[2021-02-14] MEDS: INSULIN GLARGINE (*BKC) 100 UNITS/ML 25 UNITS SUB-Q (20:25)
[2021-02-14] MEDS: MELATONIN 3 MG TABLET PO (20:29)
[2021-02-14 21:31] LABS: Glucose Point of Care 248 (65-105)
[2021-02-15] VITALS (18 sets, daily range): BP systolic 102–108; BP diastolic 51–72; PULSE 74–108; RESP 16–20; TEMP 36.5–36.9; O2SAT 90–97
[2021-02-15 06:22] LABS: Alanine Aminotransferase 296 U/L (4-35); Albumin Level 2.8 g/dL (3.5-5.1); Alkaline Phosphatase 121 U/L (38-126); Anion Gap 4 mmol/L (8-16); Aspartate Amino Transferase 122 U/L (14-36); Bilirubin,Total 0.4 mg/dL (0.2-1.3); Blood Urea Nitrogen 50 mg/dL (7-17); Calcium 8.4 mg/dL (8.4-10.2); Carbon Dioxide 24 mmol/L (22-30); Chloride 105 mmol/L (98-107); Estimated CRCL calculation 57 ml/min; Estimated Glomerular Filt Rate 55; Glucose 224 mg/dL (65-105); Magnesium 2.2 mg/dL (1.6-2.3); Potassium 4.6 mmol/L (3.4-5.0); Sodium 133 mmol/L (137-145)
[2021-02-15 06:24] LABS: Basophils Absolute Auto 0.2 K/mm3 (0.0-0.1); Basophils Percent Auto 0.9 % (0.2-1.2); Eosinophils Percent Auto 0.1 % (0-4.4); Hematocrit 42.8 % (37.0-47.0); Immature Granulocyte Percent A 9.5 % (0-0.5); Lymphocytes Absolute Auto 1.41 K/mm3 (0.9-3.2); Lymphocytes Percent Auto 7.4 % (18.3-44.2); Mean Corpuscular HGB Conc 32.7 g/dl (32-36); Mean Corpuscular Hemoglobin 30.2 pg (26-34); Mean Corpuscular Volume 92.4 fl (80-100); Mean Platelet Volume 10.4 fl (7.4-10.4); Monocytes Absolute Auto 1.5 K/mm3 (0.1-0.6); Monocytes Percent Auto 7.9 % (2.6-8.5); Neutrophils Absolute Auto 14.1 K/mm3 (1.3-6.7); Neutrophils Percent Auto 74.2 % (45.5-73.1); Platelet Count Result 322 k/mm3 (150-375); Red Blood Count 4.63 M/mm3 (4.2-5.4); Red Cell Distribution Width 13.9 % (11.5-14.5)
[2021-02-15 07:25] LABS: Glucose Point of Care 216 (65-105)
[2021-02-15 07:45] LABS: Glucose Point of Care 220 (65-105)
[2021-02-15] MEDS: IPRATROPIUM BR 0.02% INH SOLN 0.5 MG/2.5 ML VIAL INHALATION ×3 (08:20→18:16)
[2021-02-15] MEDS: ALBUTEROL SULFATE NEB 2.5 MG/0.5 ML INH INHALATION ×3 (08:21→18:16)
[2021-02-15] MEDS: INSULIN ASPART (*BKC) 100 UNITS/ML SUB-Q ×2 (08:48→17:12)
[2021-02-15] MEDS: INSULIN ASPART (*BKC) 100 UNITS/ML 10 UNITS SUB-Q ×3 (08:48→17:12)
[2021-02-15] MEDS: ZINC SULFATE 220 MG CAPSULE PO (08:54)
[2021-02-15] MEDS: CALCIUM CARBONATE (OSCAL) 500 MG TABLET PO (08:54)
[2021-02-15] MEDS: APIXABAN 5 MG TABLET PO ×2 (08:54→20:59)
[2021-02-15] MEDS: CHOLECALCIFEROL 1,000 UNITS TABLET 1000 UNITS PO (08:54)
[2021-02-15] MEDS: DEXAMETHASONE SOD PHOS INJ 4 MG/ML VIAL 6 MG IV PUSH (08:54)
[2021-02-15] MEDS: METOPROLOL SUCCINATE EXT REL 25 MG TABCR PO (08:54)
[2021-02-15] MEDS: ASCORBIC ACID 500 MG TABLET PO (08:54)
[2021-02-15] MEDS: PANTOPRAZOLE 40 MG TABLET PO (08:54)
[2021-02-15] MEDS: MAGNESIUM OXIDE 200 MG TABLET PO ×2 (08:54→20:59)
[2021-02-15] MEDS: LOSARTAN POTASSIUM 50 MG TABLET PO (08:54)
[2021-02-15 12:07] LABS: Glucose Point of Care 160 (65-105)
--- NOTE | 2021-02-15 17:18 | PM.IMPN ---
Progress Note: A&P Assessment and Plan (1) Acute respiratory failure due to COVID-19: Code(s): U07.1 - COVID-19; J96.00 - Acute respiratory failure, unspecified whether with hypoxia or hypercapnia Status: Acute Assessment and Plan: COVID positive 01/30/21. -Continue dexamethasone -Remdesivir discontinued 02/13 (had 6 days) due to elevated liver enzymes. -Continue supplemental O2 and wean as tolerated to keep O2 saturations around 89-94% -She remains at 2L/min today which is a lot of improvement compared to this weekend -home oxygen evaluation ordered for tomorrow -Sinus tachycardia this morning with activity, HR stable since then. -CTA on admission was negative for PE and patient has been on Eliquis -likely discharge tomorrow (2) Pulmonary embolism: Qualifiers: Pulmonary embolism type: unspecified Chronicity: unspecified Acute cor pulmonale presence: unspecified Qualified Code(s): I26.99 - Other pulmonary embolism without acute cor pulmonale Code(s): I26.99 - Other pulmonary embolism without acute cor pulmonale Status: Acute Assessment and Plan: CTA chest 02/08 demonstrated a small filling defect in left lower lobe, age indeterminate PE (characteristics more consistent with a resolving PE than an acute PE but cannot rule out acute PE that is tiny/oddly shaped) - Dopplers 02/07 show no DVT PETROS legs. -Continue Eliquis. Repeat CTA chest in 3-6 months is recommended. (3) Hemoglobin A1c less than 7.0%: Code(s): R73.09 - Other abnormal glucose Status: Acute Assessment and Plan: A1c 6.6% (up from 5.9% in Oct 2020) 02/09: Started Lantus 20U HS and Novolog 6 units SRINI TIDWM plus SSI. 02/11: Increased to 25 units Lantus HS and 8 Novolog SRINI plus SSI. 02/12 through today: 10u with meals with 25u of lantus -this is all elevated likely due to infection and steroids. Will decrease Lantus tonight since we will likely discontinue steroids tomorrow -Diabetic diet. Continue to monitor accu-cheks. -she is diet controlled at home (4) COPD (chronic obstructive pulmonary disease): Qualifiers: COPD type: unspecified COPD Qualified Code(s): J44.9 - Chronic obstructive pulmonary disease, unspecified Code(s): J44.9 - Chronic obstructive pulmonary disease, unspecified Status: Chronic Assessment and Plan: Without wheezing does not appear to have COPD exacerbation. -Continue her home Anoro inhaler. Continue nebulized bronchodilator therapy for now. (5) UTI (urinary tract infection): Qualifiers: Hematuria presence: without hematuria Urinary tract infection type: acute cystitis Qualified Code(s): N30.00 - Acute cystitis without hematuria Code(s): N39.0 - Urinary tract infection, site not specified Status: Acute Assessment and Plan: Urine culture growing Klebsiella - Blood cultures final with no growth -She completed 5-day course of ceftriaxone -leukocytosis likely due to steroids and does not appear to be related to infection (6) Essential (primary) hypertension: Code(s): I10 - Essential (primary) hypertension Status: Chronic Assessment and Plan: Blood pressure is stable, last 102/61 -Continue metoprolol and losartan. - Hold spironolactone for now. -Monitor BP and adjust treatment as needed. (7) Transaminitis: Code(s): R74.01 - Elevation of levels of liver transaminase levels Status: Acute Assessment and Plan: Suspect may be related to viral illness with COVID -LFTs >5x the normal limit so the Remdesivir has been held -Monitor -Hepatitis panel negative as was ultrasound the liver -will need to be repeated in 2 weeks outpatient (8) Chronic GERD: Code(s): K21.9 - Gastro-esophageal reflux disease without esophagitis Status: Chronic Assessment and Plan: Continue PPI, no acute issues. (9) Arthritis of shoulder region, righ
[2021-02-15 18:56] LABS: Glucose Point of Care 241 (65-105)
[2021-02-15] MEDS: INSULIN GLARGINE (*BKC) 100 UNITS/ML 15 UNITS SUB-Q (21:01)
[2021-02-15 21:10] LABS: Glucose Point of Care 342 (65-105)
[2021-02-15] MEDS: MELATONIN 3 MG TABLET PO (21:49)
[2021-02-16] VITALS (15 sets, daily range): BP systolic 102–124; BP diastolic 53–66; PULSE 64–114; RESP 18–20; TEMP 36.3–36.7; O2SAT 86–100
[2021-02-16 06:24] LABS: Basophils Percent Auto 0.1 % (0.2-1.2); Eosinophils Percent Auto 0.1 % (0-4.4); Hematocrit 40.2 % (37.0-47.0); Hemoglobin 13.3 g/dL (12.0-15.0); Immature Granulocyte Absolute 1.78 K/mm3 (0.00-0.031); Immature Granulocyte Percent A 9.6 % (0-0.5); Lymphocytes Absolute Auto 1.24 K/mm3 (0.9-3.2); Lymphocytes Percent Auto 6.7 % (18.3-44.2); Mean Corpuscular HGB Conc 33.1 g/dl (32-36); Mean Corpuscular Hemoglobin 30.1 pg (26-34); Mean Platelet Volume 10.6 fl (7.4-10.4); Monocytes Absolute Auto 1.5 K/mm3 (0.1-0.6); Monocytes Percent Auto 8.2 % (2.6-8.5); Neutrophils Absolute Auto 14.1 K/mm3 (1.3-6.7); Neutrophils Percent Auto 75.3 % (45.5-73.1); Platelet Count Result 301 k/mm3 (150-375); Red Blood Count 4.42 M/mm3 (4.2-5.4); Red Cell Distribution Width 13.9 % (11.5-14.5); White Blood Count 18.6 K/mm3 (4.5-10.0)
[2021-02-16 06:58] LABS: Alanine Aminotransferase 242 U/L (4-35); Albumin Level 2.7 g/dL (3.5-5.1); Alkaline Phosphatase 110 U/L (38-126); Aspartate Amino Transferase 66 U/L (14-36); Bilirubin,Total 0.4 mg/dL (0.2-1.3)
[2021-02-16 07:00] LABS: Glucose Point of Care 202 (65-105)
[2021-02-16] MEDS: INSULIN ASPART (*BKC) 100 UNITS/ML SUB-Q ×2 (07:07→12:15)
[2021-02-16] MEDS: IPRATROPIUM BR 0.02% INH SOLN 0.5 MG/2.5 ML VIAL INHALATION (07:50)
[2021-02-16] MEDS: ALBUTEROL SULFATE NEB 2.5 MG/0.5 ML INH INHALATION (07:50)
[2021-02-16] MEDS: INSULIN ASPART (*BKC) 100 UNITS/ML 10 UNITS SUB-Q ×2 (08:12→12:16)
[2021-02-16] MEDS: METOPROLOL SUCCINATE EXT REL 25 MG TABCR PO (08:13)
[2021-02-16] MEDS: MAGNESIUM OXIDE 200 MG TABLET PO (08:13)
[2021-02-16] MEDS: ZINC SULFATE 220 MG CAPSULE PO (08:13)
[2021-02-16] MEDS: APIXABAN 5 MG TABLET PO (08:13)
[2021-02-16] MEDS: PANTOPRAZOLE 40 MG TABLET PO (08:13)
[2021-02-16] MEDS: CALCIUM CARBONATE (OSCAL) 500 MG TABLET PO (08:13)
[2021-02-16] MEDS: LOSARTAN POTASSIUM 50 MG TABLET PO (08:14)
[2021-02-16] MEDS: DEXAMETHASONE SOD PHOS INJ 4 MG/ML VIAL 6 MG IV PUSH (08:14)
[2021-02-16] MEDS: ASCORBIC ACID 500 MG TABLET PO (08:14)
[2021-02-16] MEDS: CHOLECALCIFEROL 1,000 UNITS TABLET 1000 UNITS PO (08:15)
[2021-02-16 11:42] LABS: Glucose Point of Care 225 (65-105)
--- NOTE | 2021-02-16 11:47 | HOMEO2EVAL ---
Home Oxygen Evaluation RC: Home Oxygen (O2) Evaluation Start: 02/15/21 17:17 Freq: ONCE Status: Active Protocol: RPE Activity Type Activity Date Activity User E-Sign Co-Sign Detail Recorded Client Recorded Date Recorded By Document 02/16/21 11:15 VIDA [id number] 02/16/21 11:47 VIDA Document 02/16/21 11:18 VIDA [email or web address] 02/16/21 11:47 VIDA Document 02/16/21 11:20 VIDA [email or web address] 02/16/21 11:47 VIDA Document 02/16/21 11:22 VIDA [email or web address] 02/16/21 11:47 VIDA Document 02/16/21 11:23 VIDA [email or web address] 02/16/21 11:47 VIDA Document 02/16/21 11:35 VIDA [email or web address] 02/16/21 11:47 VIDA 02/16/21 02/16/21 02/16/21 11:15 11:18 11:20 Home O2 Evaluation Test Phase Resting Resting Exercise Oxygen Delivery Room Air Nasal Cannula Nasal Cannula Oxygen Flow Rate (L/min) 1 1 Pulse Oximetry (90-100 %) 87 L 92 86 L Pulse Rate (60-100 beats/min) 82 Treatment Charges O2 Evaluation - Inpatient 02/16/21 02/16/21 02/16/21 11:22 11:23 11:35 Home O2 Evaluation Test Phase Exercise Exercise Resting Oxygen Delivery Nasal Cannula Nasal Cannula Nasal Cannula Oxygen Flow Rate (L/min) 2 3 1 Pulse Oximetry (90-100 %) 87 L 90 Pulse Rate (60-100 beats/min) Treatment Charges
--- NOTE | 2021-02-16 13:46 | PCRCNOTE ---
HOME O2 EVAL COMPLETED. PT REQUIRES 1 L REST AND 3 L EXERTION. WILL BRING TANK TO ROOM FOR TRANSPORT HOME. SET UP WITH [facility]. [phone]
--- NOTE | 2021-02-16 14:01 | PM.DS ---
DS: Admitting Diagnosis Admitting Diagnosis Admitting Diagnosis: COVID PNA DS: Discharge Diagnosis Discharge Diagnosis (1) Acute respiratory failure due to COVID-19: Code(s): U07.1 - COVID-19; J96.00 - Acute respiratory failure, unspecified whether with hypoxia or hypercapnia Status: Acute Assessment and Plan: COVID positive 01/30/21. --Pt received dexamethasone -Remdesivir was given but was discontinued 02/13 (after 6 days) due to elevated liver enzymes. -patient requires 1 L of oxygen at rest and 3 L with ambulation and sleeping -CTA on admission was negative for PE and patient has been on Eliquis -plan to follow-up with her primary care physician in 1-2 weeks after this stay (2) Pulmonary embolism: Qualifiers: Pulmonary embolism type: unspecified Chronicity: unspecified Acute cor pulmonale presence: unspecified Qualified Code(s): I26.99 - Other pulmonary embolism without acute cor pulmonale Code(s): I26.99 - Other pulmonary embolism without acute cor pulmonale Status: Acute Assessment and Plan: CTA chest 02/08 demonstrated a small filling defect in left lower lobe, age indeterminate PE (characteristics more consistent with a resolving PE than an acute PE but cannot rule out acute PE that is tiny/oddly shaped) - Dopplers 02/07 show no DVT PETROS legs. -Continue Eliquis. Repeat CTA chest in 3-6 months is recommended. (3) Hemoglobin A1c less than 7.0%: Code(s): R73.09 - Other abnormal glucose Status: Acute Assessment and Plan: A1c 6.6% (up from 5.9% in Oct 2020) -she received insulin while hospitalized due to Decadron increasing her glucose -she wants to try a diabetic diet at discharge to help bring down her A1c -spoke with CRISTINA with 's office about follow-up with this (4) COPD (chronic obstructive pulmonary disease): Qualifiers: COPD type: unspecified COPD Qualified Code(s): J44.9 - Chronic obstructive pulmonary disease, unspecified Code(s): J44.9 - Chronic obstructive pulmonary disease, unspecified Status: Chronic Assessment and Plan: Without wheezing does not appear to have COPD exacerbation. -Continue her home Anoro inhaler. (5) UTI (urinary tract infection): Qualifiers: Hematuria presence: without hematuria Urinary tract infection type: acute cystitis Qualified Code(s): N30.00 - Acute cystitis without hematuria Code(s): N39.0 - Urinary tract infection, site not specified Status: Acute Assessment and Plan: Urine culture growing Klebsiella - Blood cultures final with no growth -She completed 5-day course of ceftriaxone -leukocytosis likely due to steroids and does not appear to be related to infection (6) Essential (primary) hypertension: Code(s): I10 - Essential (primary) hypertension Status: Chronic Assessment and Plan: Blood pressure is stable, last 102/53 -Continue home medications (7) Transaminitis: Code(s): R74.01 - Elevation of levels of liver transaminase levels Status: Acute Assessment and Plan: Suspect may be related to viral illness with COVID -LFTs >5x the normal limit so the Remdesivir has been held -Hepatitis panel negative as was ultrasound the liver -Trending down, spoke with CRISTINA at pcp's office about follow up (8) Chronic GERD: Code(s): K21.9 - Gastro-esophageal reflux disease without esophagitis Status: Chronic Assessment and Plan: Continue PPI, no acute issues. (9) Arthritis of shoulder region, right: Code(s): M19.011 - Primary osteoarthritis, right shoulder Status: Chronic Assessment and Plan: Follows with Dr Warner. She reports chronic pain to R shoulder due to arthritis. She notes she is supposed to have shoulder replacement but she was advised to lose weight first. DS: Summary Hospital Course Hospital Course: Patient is a 7
== END 2021-02-16 15:45 | disposition home health service (06) | DRG 177 ==
LOC: ANHED 23:44 → ANH3MEDSUR 02-07 02:39
PROVIDERS: Family Medicine; Physician Assistant; Admitting Provider Internal Medicine; Emergency Provider Emergency Medicine; PCP Family Medicine; Visit Provider Physician Assistant
DX: U07.1 COVID-19 (principal); J96.01 Acute respiratory failure with hypoxia; I26.99 Other pulmonary embolism without acute cor pulmonale; J12.82 Pneumonia due to coronavirus disease 2019; N39.0 Urinary tract infection, site not specified; J44.0 Chronic obstructive pulmonary disease with (acute) lower respiratory infection; Z68.42 Body mass index [BMI] 45.0-49.9, adult; B96.1 Klebsiella pneumoniae [K. pneumoniae] as the cause of diseases classified elsewhere; I10 Essential (primary) hypertension; E66.9 Obesity, unspecified; E78.5 Hyperlipidemia, unspecified; M81.0 Age-related osteoporosis without current pathological fracture; K21.9 Gastro-esophageal reflux disease without esophagitis; M19.011 Primary osteoarthritis, right shoulder; R73.09 Other abnormal glucose; G47.33 Obstructive sleep apnea (adult) (pediatric); Z96.651 Presence of right artificial knee joint; Z66 Do not resuscitate; Z90.710 Acquired absence of both cervix and uterus; Z90.722 Acquired absence of ovaries, bilateral; Z90.49 Acquired absence of other specified parts of digestive tract; Z87.891 Personal history of nicotine dependence
CPT/HCPCS: 36415; 36600; 71045; 71046; 71275; 76705; 80048; 80053; 80074; 80076; 81001; 82375; 82550; 82728; 82805; 82948; 83036; 83050; 83605; 83735; 84460; 84484; 85025; 85027; 85380; 85610; 85730; 86140; 87040; 87077; 87086; 87088; 87186; 93005; 93306; 93970; 94618; 94640; 94667; 94762; 97110; 97116; 97161; 97165; 97530; 97535; 99285; A9270; J0131; J0696; J1100; J1650; J1815; J2405; J3475; J7512; Q9967

== ENCOUNTER 2021-02-16 16:47 | Inpatient (IN) | payer MEDICARE, SELFPAY ==
[2021-02-16] VITALS (17 sets, daily range): BP systolic 112–134; BP diastolic 54–77; PULSE 66–80; RESP 18–93; TEMP 36–36.6; O2SAT 91–98; BMI 46.3
--- NOTE | ~2021-02-16 | XR_ITS ---
XR knee LT 2V DATE: 02/17/2021 14:52 INDICATION: Fall one day ago. Knee pain. TECHNIQUE: Portable AP and crosstable lateral views of left knee COMPARISON: None FINDINGS: There is tricompartment osteoarthritis, particularly severe at the medial compartment. No fracture or dislocation or joint effusion, periosteal reaction or bone destruction, radiopaque int ra-articular loose body or chondrocalcinosis is evident. Femoral artery calcification. IMPRESSION: Tricompartment osteoarthritis, most severe at the medial compartment No fracture or dislocation or joint effusion is evident Reviewed, dictated and finalized at location A. IMPRESSION: Tricompartment osteoarthritis, most severe at the medial compartmen t No fracture or dislocation or joint effusion is evident
--- NOTE | ~2021-02-16 | CT_ITS ---
EXAMINATION: CTA chest PE protocol DATE: 02/19/2021 11:13 INDICATION: Worsening shortness of breath. History of prior pulmonary embolism TECHNIQUE: Computed tomography angiography (CTA) of the chest was performed with 100 mL Omnipaque-350 intravenous contrast timed to evaluate the pulmonary arteries. Coronal maximum intensity projection 3D-reconstructions were created by the technologist. Automated exposure control and iterative reconst ruction technique were employed. Exam dose: 948.02 mGy-cm total exam DLP. COMPARISON: 02/08/2021 CT pulmonary scan 02/17/2021 PA and lateral chest FINDINGS: There is diagnostic contrast enhancement of the pulmonary arteries. There is a stable small web-like filling defect of the left lower lobe pulmonary artery (series 3 kash ges 108-117). This is unchanged in appearance compared to 02/08/2021. No interval new pulmonary artery filling defect or embolism is noted. No thoracic aortic aneurysm or dissection. No hilar or mediastinal mass lesion or lymphadenopathy is detected. Normal heart size. No pericardial or pleural effusion. There are extensive bilateral patchy pulmonary infiltrates and areas of consolidation, with particula r prominent consolidation noted in the anterior segment of the left upper lobe and posterior lower lo bes, right greater than left. There are patchy groundglass infiltrates particularly at the upper lobe s and left lower lobe. Small sliding hiatal hernia. There is adrenal hypertrophy. Pneumobilia. Status post cholecystectomy. Incidentally noted is severe deformity and osteoarthritic change at the right glenohumeral joint. Diffuse osteopenia. Degenerative changes of the thoracic and included lower cervical spine. IMPRESSION: Chronic small-like filling defect at the left lower lobe pulmonary artery, stable since 02/08/2021. No interval pulmonary emboli Extensive bilateral pulmonary infiltrates, increased in severity since 02/08/2021 with some prominent consolidation particularly in the left upper lobe and posterior lower lobes, right greater than left, as well as persistent patchy bilateral groundglass infiltrates Reviewed, dictated and finalized at Location A. Reviewed, dictated and finalized at location B. IMPRESSION: Chronic small-like filling defect at the left lower lobe pulmonary artery, stable since 02/08/2021. No interval pulmonary emboli Extensive bilateral pulmonary infiltrates, increased in severity since with some prominent consolidation particularly in the left upper lobe and pos terior lower lobes, right greater than left, as well as persistent patchy bilat eral groundglass infiltrates
--- NOTE | ~2021-02-16 | XR_ITS ---
EXAMINATION: XR chest 2V DATE: 02/17/2021 09:05 INDICATION: Generalized weakness TECHNIQUE: frontal and lateral views of the chest were obtained. COMPARISON: Chest radiograph dated 02/15/2021 FINDINGS: Elevation of the right hemidiaphragm. Persistent airspace opacities in the left mid and right mid to upper lung zones. No new airspace opacities, pleural effusion or pneumothorax. The cardiomediastinal silhouette is normal. Severe right glenohumeral osteoarthritis. IMPRESSION: 1. No interval change in diffuse bilateral lung disease consistent with COVID pneumonia. Reviewed, dictated and finalized at location A. IMPRESSION: 1. No interval change in diffuse bilateral lung disease consistent with COVID p neumonia.
--- NOTE | ~2021-02-16 | XR_ITS ---
EXAMINATION: XR chest 1V portable DATE: 02/18/2021 07:35 INDICATION: Chest pain TECHNIQUE: frontal view of the chest was obtained. COMPARISON: Chest radiograph dated 02/17/2021 FINDINGS: No significant interval change in patchy bilateral airspace opacities most prominent in the right upp er and left mid lung zones. No pulmonary edema, pleural effusion or pneumothorax. The cardiomediastin al silhouette is normal. IMPRESSION: 1. No interval change in diffuse bilateral lung disease consistent with COVID pneumonia. Reviewed, dictated and finalized at location A. IMPRESSION: 1. No interval change in diffuse bilateral lung disease consistent with COVID p neumonia.
--- NOTE | ~2021-02-16 | XR_ITS ---
XR knee RT 2V DATE: 02/17/2021 14:52 INDICATION: Fall one day ago. Knee pain. TECHNIQUE: Portable AP and crosstable lateral views of right knee COMPARISON: None FINDINGS: Status post total knee arthroplasty with patellar resurfacing. No fracture or dislocation or joint effusion is detected. No periosteal reaction or bone destruction. IMPRESSION: Right total knee arthroplasty Reviewed, dictated and finalized at location A.
--- NOTE | 2021-02-16 17:23 | ECG_ITS ---
Measurements Intervals [place] Rate: 69 P: 25 WI: 185 QRS: -33 QRSD: 82 T: 10 QT: 395 QTc: 425 Interpretive Statements SINUS RHYTHM LEFT AXIS DEVIATION DELAYED PRECORDIAL R/S TRANSITION VOLTAGE CRITERIA FOR LVH INFERIOR INFARCT, AGE INDETERMINATE BASELINE ARTIFACT- AVR, AVL, AVF, V4-V6 ABNORMAL ECG Electronically Signed On 02-17-2021 7:31:55 CDT by Ezekiel Nance D.O.
[2021-02-16 17:35] LABS: Hematocrit 41.5 % (37.0-47.0); Hemoglobin 13.9 g/dL (12.0-15.0); Mean Corpuscular HGB Conc 33.5 g/dl (32-36); Mean Corpuscular Hemoglobin 30.4 pg (26-34); Mean Corpuscular Volume 90.8 fl (80-100); Mean Platelet Volume 10.2 fl (7.4-10.4); Platelet Count Result 304 k/mm3 (150-375); Red Blood Count 4.57 M/mm3 (4.2-5.4); Red Cell Distribution Width 13.9 % (11.5-14.5); White Blood Count 20.7 K/mm3 (4.5-10.0)
[2021-02-16 17:47] LABS: Alanine Aminotransferase 242 U/L (4-35); Albumin Level 2.9 g/dL (3.5-5.1); Alkaline Phosphatase 132 U/L (38-126); Anion Gap 5 mmol/L (8-16); Aspartate Amino Transferase 94 U/L (14-36); Band Neutrophils Percent 3 % (0-6); Bilirubin,Total 0.5 mg/dL (0.2-1.3); Blood Urea Nitrogen 47 mg/dL (7-17); Calcium 8.6 mg/dL (8.4-10.2); Carbon Dioxide 25 mmol/L (22-30); Chloride 104 mmol/L (98-107); Estimated CRCL calculation 63 ml/min; Estimated Glomerular Filt Rate > 60; Glucose 197 mg/dL (65-105); Lymphocytes Absolute Manual 0.82 K/mm3 (1.1-4.5); Lymphocytes Percent Manual 4 % (18-44); Metamyelocytes Percent 3 %; Monocytes Absolute Manual 1.03 K/mm3 (0.1-0.90); Monocytes Percent Manual 5 % (3-9); Neutrophils Absolute Manual 18.21 K/mm3 (1.7-7.2); Neutrophils Percent Manual 85 % (46-73); Potassium 4.7 mmol/L (3.4-5.0); Sodium 134 mmol/L (137-145); Total Cells Counted 100
[2021-02-16 17:48] LABS: Platelet Estimate Adequate (Adequate)
[2021-02-16 17:49] LABS: Add Urine Microscopic? YES; Appearance Urine Clear (Clear); Bacteria Urine Trace /hpf; Bilirubin Urine Negative (Negative); Blood Urine Negative (Negative); Color Urine Yellow (Yellow); Glucose Urine UA 1+ mg/dL (Negative); Ketones Urine Negative (Negative); Leukocyte Esterase Ur Trace LEU/UL (Negative); Mucus Urine Rare /lpf; Nitrate Urine Negative (Negative); Protein Urine Negative (Negative); RBC Urine 0-2 /hpf (0-2); Squamous Epithelial Cell Urine Occasional /hpf (Few); Urobilinogen Urine Negative mg/dL (<2.0); WBC Urine 0-3 /hpf
--- NOTE | 2021-02-16 18:07 | ED.FALL ---
HPI - Fall General Chief Complaint: Fall Stated Complaint: FALL/WEAKNESS Time Seen by Provider: 02/16/21 16:58 Source: patient Mode of arrival: EMS Limitations: no limitations History of Present Illness HPI Narrative: Patient is a 70-year-old female who presents by EMS. Per EMS and patient's family. Patient was discharged from [facility] at approximately 330 this afternoon. Patient was unable to take the step into the home and fell to her knees and then hands and knees when arriving home. Patient reports bilateral leg pain and increased weakness since discharge. Patient appears lethargic. Patient son at bedside with patient. MD complaint: fall Related Data Home Medications Medication Instructions Recorded Confirmed aspirin 81 mg tablet,delayed 81 mg PO DAILY 11/01/19 02/07/21 release calcium carbonate 600 mg calcium 600 mg PO DAILY 11/01/19 02/07/21 (1,500 mg) tablet krill 500 mg-omega 3 115 mg-dha 30 1 cap PO DAILY 11/01/19 02/07/21 mg-epa 64 [id number] capsule vitamin B complex 1 cap PO DAILY 11/01/19 02/07/21 Allergies Allergy/AdvReac Type Severity Reaction Status Date / Time No Known Allergies Allergy Verified 02/16/21 17:02 Review of Systems Review of Systems: Narrative: CONSTITUTIONAL: Denies fever, chills, or sweats. EYES: Denies visual changes, redness, or discharge. ENT: Denies rhinorrhea, congestion, sore throat, or otalgia. CARDIOVASCULAR: Denies chest pain, palpitations, or edema. RESPIRATORY: Reports dyspnea. GASTROINTESTINAL: Denies abdominal pain, nausea, vomiting, or diarrhea. GENITOURINARY: Denies dysuria or hematuria. SKIN: Denies rash or itching. MUSCULOSKELETAL: Denies back pain, joint pain, or myalgia. NEUROLOGIC: Reports generalized weakness, lightheadedness and dizziness PSYCHIATRIC: Denies anxiety or depression. [facility] Past Medical History Medical History 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in A1c less than 7.0% 11/13/2020 A1c = 5.9 History of obstructive sleep apnea HLD (hyperlipidemia) Hypertension Osteoporosis Vision loss Surgical History Surgical History History of uvulopalatopharyngoplasty 2006 for GUALBERTO History of varicose veins Status post hysterectomy with oophorectomy Status post laparoscopic cholecystectomy Status post right knee replacement may 2018, Dr. Tovar Family History Family History Mother Hypertension Cerebrovascular accident Heart murmur Father Family history of cardiovascular disease Arthritis Atrial fibrillation Diabetes mellitus Social History Social History Social History: Ms. Garcia lives at home alone in [place] and is retired from working at an accounting office. She reports some alcohol intake maybe 2 drinks per week. Former smoker 1ppd x 30 years and quit in 2003. Denies other substance use. PCP is Dr Jesus Gonzales. She describes she would wish for CPR and intubation if felt she could survive but would not wish to be on life support for an extended period, thus keeping her code status DNR. She has two children and her son, Manuel, is a broke beater machine operator in [place] and is her designated power of hat blocking machine operator. Smoking packs per day: 1 Smoking cigarettes per day: 20.0 Years smoked: 30 Smoking pack-years: 30.00 Smoking status: Former smoker Tobacco type: cigarettes Second hand tobacco smoke exposure: No Alcohol intake: current Drinks per week: 2 Substance use: never Substance use type: does not use Gender identity (if verbalized by the patient): Female Spiritual care concerns: No Comments At the time of signature, I have reviewed and agree with adarsh
[2021-02-16 18:35] LABS: Alveolar/Arterial O2 Gradient 97.8 mmHg; Fractional Inspired Oxygen 28 %; Oxygen Content ABG 18.8 %vol (16.0-22.0); Oxygen Saturation ABG 93.7 % (95.0-100.0); Oxyhemoglobin 91.6 % THb (90.0-100.0); PCO2 ABG 31.9 mmHg (35.0-45.0); PO2 ABG 64.2 mmHg (80.0-100.0); PO2 FiO2 Ratio Arterial Blood 2.29 %; Total Hemoglobin 14.6 g/dL (12.0-18.0); pH ABG 7.456 (7.350-7.450)
[2021-02-16 18:36] LABS: Device NASAL CANNULA; Site Drawn LEFT BRACHIAL
--- NOTE | 2021-02-16 20:12 | PC.NURSE ---
Son present at bedside and updated on poc. Pt resting on cart at this time with complaints of pain to right mooney rated 3/10. Pt refusing pain medication at this time. Bruising and discoloration noted to right mooney. Pt has not other complaints at this time. Breathing is even and unlabored and vitals are stable. Son to be leaving bedside and wants to be notified when pt is sent to floor. Call button and personal items within reach. Advised to press call button for assistance.
[2021-02-16] MEDS: SODIUM CHLORIDE 0.9% IV 1,000 ML 125 ML IV CONT (20:39)
--- NOTE | 2021-02-16 20:43 | PC.NURSE ---
Pt resting on cart and asking for water. COFFEE MAKER notified and gives verbal order for pt to eat and drink. Pt provided ice water. Resting on cart with no complaints or concerns voiced at this time. Vitals stable and call button and personal items within reach. Pt advised to press call button for assistance.
--- NOTE | 2021-02-16 20:48 | PC.NURSE ---
SBAR faxed to [facility] Med Surg.
--- NOTE | 2021-02-16 21:12 | PC.NURSE ---
Report called to receiving nurse. OK to send pt to floor.
--- NOTE | 2021-02-16 21:18 | PC.NURSE ---
Son, Manuel, called at [phone] and informed of pt bed assignment. No questions or concerns at this time.
--- NOTE | 2021-02-16 21:41 | ADMGEN ---
This patient, Mariza Garcia, was admitted to [facility] Surg Room 326-01 at 2125. Patient/family oriented to hospital policies and general routines including ID bracelet, bed and alarms, visiting hours, pain management, procedures, bathroom and other care routines, personal items, smoking policy, room service/diet, and visiting hours. Information on how to activate the Rapid Response Team has been discussed. Patient/Family are encouraged to report perceived risks to care and to ask questions if they do not understand what they are told or what they should do.
[2021-02-17] VITALS (12 sets, daily range): BP systolic 117–121; BP diastolic 53–64; PULSE 64–106; RESP 18–20; TEMP 35.7–36.8; O2SAT 91–94
[2021-02-17] MEDS: SODIUM CHLORIDE 0.9% IV 1,000 ML 125 ML IV CONT (05:29)
[2021-02-17] MEDS: APIXABAN 5 MG TABLET PO ×2 (08:13→20:28)
[2021-02-17] MEDS: ASPIRIN 81 MG ENTERIC TABLET PO (08:13)
[2021-02-17] MEDS: LOSARTAN POTASSIUM 50 MG TABLET PO (08:14)
[2021-02-17] MEDS: CALCIUM CARBONATE (OSCAL) 500 MG TABLET PO (08:14)
[2021-02-17] MEDS: METOPROLOL SUCCINATE EXT REL 25 MG TABCR PO (08:14)
[2021-02-17] MEDS: MAGNESIUM OXIDE 200 MG TABLET PO ×2 (08:14→20:28)
[2021-02-17] MEDS: UMECLIDINIUM/VILANTEROL 62.5-25 MCG ELLIPTA 1 PUFF INHALATION (08:15)
[2021-02-17] MEDS: PANTOPRAZOLE 40 MG TABLET PO (08:15)
[2021-02-17] MEDS: SPIRONOLACTONE 50 MG TABLET 100 MG PO (08:15)
[2021-02-17] MEDS: VITAMIN B COMPLEX CAPSULE 1 CAP PO (08:16)
--- NOTE | 2021-02-17 09:31 | PM.IMHP ---
H&P: HPI History of Present Illness Date/Time: 02/17/21 09:31 Patient is a 70-year-old female with a past medical history of recent COVID-19 infection, PE, transaminitis, diet-controlled diabetes and hypertension who presented emergency room a couple hours after discharge from the hospital due to weakness and fall. Patient states she was doing well prior to discharge and able to walk in her room with her oxygen but when she got home, she fell on the steps and felt weak. Daughter at bedside states the son drove her home but that she was very weak getting out of the car. She fell on the steps going inside her house and was unable to get back up. Patient states her knees are sore since then but she has no numbness/tingling/ or focal weakness to the area. She states she has no frequency, dysuria, chest pain, or cough. She feels much better today and stronger. She also denies chest pain, neck pain, problems with speech, numbness or tingling, leg swelling, or altered mental status. The patient and daughter at bedside have agreed to a short SNF stay. Chief Complaint: fall Review of Systems Review of Systems: All systems reviewed & are unremarkable except as noted in HPI and below PMFSH Past Medical History Medical History 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in A1c less than 7.0% 11/13/2020 A1c = 5.9 History of obstructive sleep apnea HLD (hyperlipidemia) Hypertension Osteoporosis Vision loss Surgical History Surgical History History of uvulopalatopharyngoplasty 2006 for GUALBERTO History of varicose veins Status post hysterectomy with oophorectomy Status post laparoscopic cholecystectomy Status post right knee replacement may 2018, Dr. Tovar Family History Family History Mother Hypertension Cerebrovascular accident Heart murmur Father Family history of cardiovascular disease Arthritis Atrial fibrillation Diabetes mellitus Social History Social History Social History: Ms. Garcia lives at home alone in [place] and is retired from working at an accounting office. She reports some alcohol intake maybe 2 drinks per week. Former smoker 1ppd x 30 years and quit in 2003. Denies other substance use. PCP is Dr Jesus Gonzales. She describes she would wish for CPR and intubation if felt she could survive but would not wish to be on life support for an extended period, thus keeping her code status DNR. She has two children and her son, Manuel, is a creative art therapist in [place] and is her designated power of litigation attorney. Smoking packs per day: 1 Smoking cigarettes per day: 20.0 Years smoked: 30 Smoking pack-years: 30.00 Smoking status: Former smoker Second hand tobacco smoke exposure: No Alcohol intake: current Drinks per week: 1 Substance use: never Substance use type: does not use Gender identity (if verbalized by the patient): Female Spiritual care concerns: No Meds Home Medications and Allergies Home Medications Medication Instructions Recorded Confirmed Type aspirin 81 mg tablet,delayed 81 mg PO DAILY 11/01/19 02/16/21 History release calcium carbonate 600 mg calcium 600 mg PO DAILY 11/01/19 02/16/21 History (1,500 mg) tablet krill 500 mg-omega 3 115 mg-dha 30 1 cap PO DAILY 11/01/19 02/16/21 History mg-epa 64 [id number]-pzuar capsule vitamin B complex 1 cap PO DAILY 11/01/19 02/16/21 History losartan 100 mg tablet 50 mg PO DAILY #90 tablet 11/03/20 02/16/21 Rx metoprolol succinate 25 mg 25 mg PO DAILY #90 tablet 11/03/20 02/16/21 Rx tablet,extended release 24 hr omeprazole 40 mg capsule,delayed 40 mg PO DAILY #90 cap
[2021-02-18] VITALS (25 sets, daily range): BP systolic 93–117; BP diastolic 47–72; PULSE 86–151; RESP 16–24; TEMP 36.5–37.3; O2SAT 89–96
--- NOTE | 2021-02-18 02:59 | ECG_ITS ---
Measurements Intervals [place] Rate: 130 P: 52 WI: 199 QRS: -38 QRSD: 81 T: 42 QT: 361 QTc: 531 Interpretive Statements SINUS OR ECTOPIC ATRIAL TACHYCARDIA BORDERLINE AV CONDUCTION DELAY VOLTAGE CRITERIA FOR LVH POOR R WAVE PROGRESSION, CONSIDER ANTERIOR INFARCT INFERIOR INFARCT, AGE INDETERMINATE BASELINE ARTIFACT- I, II, III, AVR, AVL, AVF ABNORMAL ECG Electronically Signed On 02-18-2021 7:40:24 CDT by Ezekiel Nance D.O.
[2021-02-18] MEDS: ALBUTEROL SULFATE (*SP) AEROSOL 1 PUFF 4 PUFF INHALATION (03:08)
[2021-02-18 03:36] LABS: Hematocrit 44.6 % (37.0-47.0); Hemoglobin 14.6 g/dL (12.0-15.0); Mean Corpuscular HGB Conc 32.7 g/dl (32-36); Mean Corpuscular Hemoglobin 30.2 pg (26-34); Mean Corpuscular Volume 92.3 fl (80-100); Mean Platelet Volume 10.4 fl (7.4-10.4); Platelet Count Result 228 k/mm3 (150-375); Red Blood Count 4.83 M/mm3 (4.2-5.4); White Blood Count 17.5 K/mm3 (4.5-10.0)
--- NOTE | 2021-02-18 03:42 | PC.NURSE ---
02/18/21 @ 0320 EKG COMPLETED AND GIVEN TO DR TERRAZAS WITH PREVIOUS EKG FOR COMPARISON. NO NEW ORDERS.
[2021-02-18 03:59] LABS: Troponin I 0.015 ng/mL (0.000-0.034)
[2021-02-18 04:07] LABS: Alanine Aminotransferase 221 U/L (4-35); Alkaline Phosphatase 145 U/L (38-126); Anion Gap 3 mmol/L (8-16); Aspartate Amino Transferase 73 U/L (14-36); Bilirubin,Total 0.7 mg/dL (0.2-1.3); Blood Urea Nitrogen 28 mg/dL (7-17); CRP 3.6 mg/dL (<1.0); Calcium 8.6 mg/dL (8.4-10.2); Carbon Dioxide 27 mmol/L (22-30); Chloride 105 mmol/L (98-107); Estimated CRCL calculation 63 ml/min; Estimated Glomerular Filt Rate > 60; Glucose 203 mg/dL (65-105); Sodium 135 mmol/L (137-145)
--- NOTE | 2021-02-18 05:03 | P.PNCROSS_ITS ---
Event Note Event Note Event Note: While I was on the floor the nursing staff notified me that the patient was having chest heaviness. Patient did not have any eliciting or relieving factors associated with her chest heaviness. She initially did not have an increase in her oxygen requirement. She did seem anxious and was mildly tachypneic. Initially heart rate was around 114. An EKG was obtained which demonstrated sinus tachycardia with a rate of 130. Evidently earlier in the day patient had had some telemetry strips with tachycardia between the low 100s and 130 range. The telemetry strips were reviewed and were slightly irregular and or suspicious for possible atrial fibrillation. At the time of my evaluation the patient's heart rate nose between 12/31/2049 and appeared to be in sinus tach on telemetry. On repeat evaluation nursing staff found the patient to be hypoxic with oxygen saturations of 87% on 1 L nasal cannula. Her oxygen was increased to 5 L nasal cannula to improve her oxygen saturations to 93%. The patient is already on anticoagulation with Eliquis. She was given an albuterol inhaler 4 puffs with no improvement in her shortness of breath. However she did have increased coughing following inhaler treatment. She cough is productive of clear sputum. 99.2 earlier in the evening was 98.9 on re-evaluation. The patient does not appear to be volume depleted and her fluid balance was positive at 2.7 L. stat troponin was drawn and was negative. Patient's repeat EKG demo nstrated sinus tachycardia significantly changed from her baseline EKG. Sinus tachycardia with chest heaviness at rest--differential includes volume depletion however less likely given the patient is taking in adequate oral intake and has a positive fluid balance. Cardiac ischemia less likely with negative troponin and stable EKG. Thrombus patient already has a history of pulmonary embolism resolving PE and is on Eliquis. Infection the patient's white count is actually trending down. COPD exacerbation however the patient did not have improvement in her symptoms with albuterol inhaler. Or possible anxiety component contributing to the patient's symptoms. I would lead towards anxiety being the cause of patient's symptoms however now she has developed increasing oxygen requirement. Will continue to monitor on telemetry and repeat cardiac enzyme level has been ordered.
[2021-02-18] MEDS: MORPHINE SULFATE (*CRX) 2 MG/ML INJ IV PUSH (06:56)
--- NOTE | 2021-02-18 07:09 | ECG_ITS ---
Measurements Intervals [place] Rate: 87 P: 43 NC: 189 QRS: -39 QRSD: 71 T: 5 QT: 343 QTc: 414 Interpretive Statements SINUS RHYTHM LEFT AXIS DEVIATION VOLTAGE CRITERIA FOR LVH POOR R WAVE PROGRESSION, ANTERIOR LEADS INFERIOR INFARCT, AGE INDETERMINATE ABNORMAL ECG Electronically Signed On 02-18-2021 16:52:02 CDT by Ezekiel Nance D.O.
[2021-02-18 07:41] LABS: Troponin I 0.025 ng/mL (0.000-0.034)
[2021-02-18 07:48] LABS: Lactic Acid Reflex 1.4 mmol/L (0.7-2.1)
[2021-02-18] MEDS: VITAMIN B COMPLEX CAPSULE 1 CAP PO (08:02)
[2021-02-18] MEDS: APIXABAN 5 MG TABLET PO ×2 (08:03→20:48)
[2021-02-18] MEDS: METOPROLOL SUCCINATE EXT REL 25 MG TABCR PO (08:03)
[2021-02-18] MEDS: LOSARTAN POTASSIUM 50 MG TABLET PO (08:03)
[2021-02-18] MEDS: ASPIRIN 81 MG ENTERIC TABLET PO (08:03)
[2021-02-18] MEDS: MAGNESIUM OXIDE 200 MG TABLET PO ×2 (08:03→20:48)
[2021-02-18] MEDS: SPIRONOLACTONE 50 MG TABLET 100 MG PO (08:03)
[2021-02-18] MEDS: PANTOPRAZOLE 40 MG TABLET PO (08:04)
[2021-02-18 08:05] LABS: Glucose Point of Care 196 (65-105)
[2021-02-18] MEDS: CALCIUM CARBONATE (OSCAL) 500 MG TABLET PO (08:05)
[2021-02-18] MEDS: UMECLIDINIUM/VILANTEROL 62.5-25 MCG ELLIPTA 1 PUFF INHALATION (08:14)
--- NOTE | 2021-02-18 08:58 | PCPTNOTE ---
PT held due to patient transferring from medical floor to IMU. PT will await further orders.
--- NOTE | 2021-02-18 08:59 | PC.NURSE ---
This patient, Mariza Garcia, was received from [ /[facility]] on 02/18/21 at 0859. Patient/family oriented to unit policies and routines
--- NOTE | 2021-02-18 09:01 | PM.IMPN ---
Progress Note: A&P Assessment and Plan (1) Sepsis: Code(s): A41.9 - Sepsis, unspecified organism Status: Acute Assessment and Plan: Patient started have a tachycardia overnight with some chest pain -her fever this morning was 99.1 with a leukocytosis 17.5 (improving) I am concerned there is a secondary infection -could be COVID-19 although cannot rule out secondary bacterial infection. Chest x-ray looks unchanged -will draw blood cultures, procalcitonin, and lactic acid has been drawn and is normal -who originally at that her leukocytosis was from steroids although now the clinical picture is more complex. It is decreasing which could be due to this cessation of steroids but with her tachycardia and low-grade fever, infection is concerning -at this time I am going to start vanc and Zosyn for hospital-acquired pneumonia as a secondary bacterial infection on top of COVID. I am going to redraw UA since she had a urinary tract infection last stay. Blood cultures have been ordered -doubt PE, she has been taking Eliquis -consider infectious disease consult (2) Chest pain: Code(s): R07.9 - Chest pain, unspecified Status: Acute Assessment and Plan: Atypical chest pain -could be due to the sinus tachycardia from possible sepsis? -cp partly reproducible on exam -EKG reviewed, no ACS suspected -she is on aspirin and Eliquis, continue with that. PE seems less likely due to Eliquis -no evidence of bleed -TSH normal -no heart history, no leg swelling -will moved to IMU and ask Cardiology to see her since she is persistently 150s -She is on metoprolol at home and has not missed a dose (3) Fall: Qualifiers: Encounter type: initial encounter Qualified Code(s): W19.XXXA - Unspecified fall, initial encounter Code(s): W19.XXXA - Unspecified fall, initial encounter Status: Acute Assessment and Plan: Although patient did well with therapy while hospitalized, she was unable to get into her house due to weakness -she was brought back to the hospital and will likely need placement -Continue PT/OT -Now that she is outside of her isolation window, she will be able to walk the halls and do the stairs with rehab which may have been the problem causing re-admission. Her endurance may be low. -spoke with patient and family about plan of care and they agree with SNF (4) Generalized weakness: Code(s): R53.1 - Weakness Status: Acute Assessment and Plan: Continue PT and OT -likely due to prolonged hospitalization and COVID-19 (5) Pulmonary embolism: Qualifiers: Pulmonary embolism type: unspecified Chronicity: unspecified Acute cor pulmonale presence: unspecified Qualified Code(s): I26.99 - Other pulmonary embolism without acute cor pulmonale Code(s): I26.99 - Other pulmonary embolism without acute cor pulmonale Status: Acute Assessment and Plan: CTA chest 02/08 demonstrated a small filling defect in left lower lobe, age indeterminate PE (characteristics more consistent with a resolving PE than an acute PE but cannot rule out acute PE that is tiny/oddly shaped) - Dopplers 02/07 show no DVT PETROS legs. -Continue Eliquis. Repeat CTA chest in 3-6 months is recommended. (6) Transaminitis: Code(s): R74.01 - Elevation of levels of liver transaminase levels Status: Acute Assessment and Plan: improving, Suspect may be related to viral illness with COVID -worsened with Remdesivir -Monitor -Hepatitis panel negative as was ultrasound the liver -will need to be repeated in 2 weeks outpatient and I spoke to primary care about following up with his (7) COVID-19 virus infection: Code(s): U07.1 - COVID-19 Status: Acute Assessment and Plan: Symptoms started 01/28/21 -received Remdesivir and dexamethasone -now needs 1 L of oxygen at rest and 3 L with activity and sleep -on Eliquis for PE -no long
--- NOTE | 2021-02-18 09:04 | PCOTNOTE ---
Per [employer]ACH[employer]ES W[employer]ER, patient moving to IMU due to increased HR. Will hold OT today and continue plan of care tomorrow, 02/19/21 if appropriate.
[2021-02-18 09:47] LABS: Add Urine Microscopic? YES; Appearance Urine Clear (Clear); Bilirubin Urine 1+ (Negative); Blood Urine Negative (Negative); Color Urine Yellow (Yellow); Glucose Urine UA Negative (Negative); Ketones Urine Trace mg/dL (Negative); Leukocyte Esterase Ur Negative LEU/UL (Negative); Nitrate Urine Negative (Negative); Protein Urine 1+ mg/dL (Negative); Urobilinogen Urine 0.2 mg/dL (<2.0); pH Urine 5.5 (5.0-9.0)
[2021-02-18 09:48] LABS: Bacteria Urine 4+ /hpf; RBC Urine 0-2 /hpf (0-2); Squamous Epithelial Cell Urine Rare /hpf (Few); WBC Urine 0-3 /hpf
[2021-02-18 09:49] LABS: Mucus Urine Few /lpf
[2021-02-18 09:52] LABS: Troponin I 0.029 ng/mL (0.000-0.034)
[2021-02-18 10:17] LABS: Procalcitonin 0.1 ng/mL
--- NOTE | 2021-02-18 11:54 | PC.NURSE ---
CALLED AT 0829 TO [facility], ASKED THEM TO CALL FOR REPORT WHEN READY. 0850 GAVE REPORT TO YURIDIA BOOGIE , NO FURTHER QUESTIONS ASKED
--- NOTE | 2021-02-18 11:57 | PC.NURSE ---
This patient, Mariza Garcia, was transferred to [ IMU] on 02/18/21 at 0855. Personal belongings sent with patient. Report given to [YURIDIA BOOGIE ]. Appropriate documentation sent with patient.
--- NOTE | 2021-02-18 12:23 | PM.CNCAR ---
Assessment and Plan Assessment and plan (1) Sinus tachycardia: Code(s): R00.0 - Tachycardia, unspecified Status: Acute Assessment and Plan: Multifactorial and likely physiologic in the setting of COVID pneumonia with possible superimposed bacteremia infection, recent PE and poor oral intake Her heart rate is better since she received IV fluids Her echocardiogram shows no structural disease Electrolytes within normal limits as well as TSH. Free T4 is pending I would continue her Metoprolol as at home dose, otherwise no need for any further cardiac work up at this point except for continued tele monitoring She has chest pain that appears pleuritic in nature. Trop has been negative on multiple occasions. With multiple risk factors we may consider stress testing in outpatient settings once she recovers from pneumonia (2) Chest pain: Code(s): R07.9 - Chest pain, unspecified Status: Acute Assessment and Plan: as above (3) Pulmonary embolism: Qualifiers: Pulmonary embolism type: unspecified Chronicity: unspecified Acute cor pulmonale presence: unspecified Qualified Code(s): I26.99 - Other pulmonary embolism without acute cor pulmonale Code(s): I26.99 - Other pulmonary embolism without acute cor pulmonale Status: Acute Assessment and Plan: Small with no heart strain on echo. Continue Eliquis (4) COVID-19 virus infection: Code(s): U07.1 - COVID-19 Status: Acute History of Present Illness History of Present Illness Consult date/time: 02/18/21 12:23 70yo F with history of COPD, hypertension, dyslipidemia, COVID positive 01/30/21 who presented on 02/06 with dyspnea and worsening upper resp symptoms including cough, body aches and fever. She was treated for COVID pneumonia with Remdisivir (stopped after 6 days due to elevated LFTs) and dexamethasone. She was also found to have small PE on CT of chest and was started on Eliquis. She was discharged on the with oxygen supplementation at 2 liters however was readmitted the following day for ongoing symptoms and dyspnea. She was noted to have HR in 150s with sinus tachycardia and her WBC was up to 20. She was started empirically on broad coverage abx for concern of superimposed bacterial infection. We are consulted for sinus tachycardia as high as 150s noted on tele. Her HR is better now down to 100s. She had 2D echo on 3.15.21 showing normal biventricular function and no significant valvular disease. She has no prior known cardiac history or cardiac work up in the past. She is resting in bed comfortably and reports chest pain and heaviness that has been ongoing even since she had COVID. Her trop has been negative on multiple occasions since admission including today She quit smoking 17 years ago. Mother had A fib. Reason For Visit: generalized weakness Review of Systems Review of Systems: All systems reviewed & are unremarkable except as noted in HPI and below Constitutional: Constitutional: Denies fatigue and Denies headache(s) Eyes: Eyes: Denies blurry vision ENT: Reports Normal hearing present and Denies headache(s) Cardiovascular: Cardiovascular: Denies chest pain, Denies diaphoresis, Denies pedal edema, Denies leg edema, Denies lightheadedness, Denies palpitations and Denies dyspnea Respiratory: Respiratory: Denies cough and Denies dyspnea Gastrointestinal: Gastrointestinal: Denies abdominal pain Musculoskeletal: Musculoskeletal: Denies back pain Neurologic: Reports Normal hearing present and Denies headache(s) Psychiatric: Psychiatric: Denies anxiety Endocrine: Endocrine: Denies fatigue and Denies palpitations [facility] Past Medical History Medical History 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
[2021-02-18 13:08] LABS: Troponin I 0.029 ng/mL (0.000-0.034)
[2021-02-18] MEDS: LACTATED RINGERS 500 ML 100 ML IV CONT (13:14)
[2021-02-18 14:23] LABS: Free T4 Free Thyroxine Reflex 1.92 ng/dL (0.78-2.19)
[2021-02-18] MEDS: ACETAMINOPHEN 325 MG TABLET 650 MG PO (16:54)
[2021-02-19] VITALS (18 sets, daily range): BP systolic 93–121; BP diastolic 49–61; PULSE 74–120; RESP 18–24; TEMP 36–36.7; O2SAT 88–100
[2021-02-19] MEDS: MELATONIN 3 MG TABLET PO (00:14)
[2021-02-19] MEDS: ACETAMINOPHEN 325 MG TABLET 650 MG PO ×2 (02:20→23:56)
[2021-02-19 04:42] LABS: Basophils Absolute Auto 0.1 K/mm3 (0.0-0.1); Basophils Percent Auto 0.3 % (0.2-1.2); Eosinophils Percent Auto 0.2 % (0-4.4); Hemoglobin 11.6 g/dL (12.0-15.0); Immature Granulocyte Absolute 0.98 K/mm3 (0.00-0.031); Immature Granulocyte Percent A 5.9 % (0-0.5); Lymphocytes Absolute Auto 0.81 K/mm3 (0.9-3.2); Lymphocytes Percent Auto 4.9 % (18.3-44.2); Mean Corpuscular HGB Conc 33.1 g/dl (32-36); Mean Corpuscular Hemoglobin 30.4 pg (26-34); Mean Corpuscular Volume 91.9 fl (80-100); Mean Platelet Volume 10.6 fl (7.4-10.4); Monocytes Absolute Auto 1.2 K/mm3 (0.1-0.6); Monocytes Percent Auto 7.5 % (2.6-8.5); Neutrophils Absolute Auto 13.5 K/mm3 (1.3-6.7); Neutrophils Percent Auto 81.2 % (45.5-73.1); Platelet Count Result 170 k/mm3 (150-375); Red Blood Count 3.81 M/mm3 (4.2-5.4); Red Cell Distribution Width 14.2 % (11.5-14.5); White Blood Count 16.6 K/mm3 (4.5-10.0)
[2021-02-19 05:04] LABS: Alanine Aminotransferase 136 U/L (4-35); Albumin Level 2.4 g/dL (3.5-5.1); Alkaline Phosphatase 109 U/L (38-126); Anion Gap 3 mmol/L (8-16); Aspartate Amino Transferase 64 U/L (14-36); Bilirubin,Total 0.6 mg/dL (0.2-1.3); Blood Urea Nitrogen 23 mg/dL (7-17); Calcium 7.8 mg/dL (8.4-10.2); Carbon Dioxide 26 mmol/L (22-30); Chloride 102 mmol/L (98-107); Estimated CRCL calculation 57 ml/min; Estimated Glomerular Filt Rate 55; Glucose 281 mg/dL (65-105); Magnesium 1.9 mg/dL (1.6-2.3); Phosphorus 2.4 mg/dL (2.5-4.5); Potassium 3.6 mmol/L (3.4-5.0); Sodium 131 mmol/L (137-145)
[2021-02-19 05:39] LABS: CRP 16.5 mg/dL (<1.0)
--- NOTE | 2021-02-19 09:12 | PM.IMPN ---
Progress Note: A&P Assessment and Plan (1) Sepsis: Code(s): A41.9 - Sepsis, unspecified organism Status: Acute Assessment and Plan: Sepsis was considered 02/18 when the patient had sustained tachycardia in the 150s with a low grade temp 99.1. -She was started on vanc + zosyn for possible 2ndary bacterial infection and half way though the vanc bag, her HR normalized -Procalcitonin was drawn which was normal, UA does not look suspicious, and lactic was normal -Continue abx but consider dehydration as the source if no evidence of infection on w/u -Will repeat CTA since pt continues to have cough and pleuritic chest pain -leukocytosis likely d/t steroids but unclear, could be due to subtle infection -await blood cultures -consider infectious disease consult (2) Chest pain: Code(s): R07.9 - Chest pain, unspecified Status: Acute Assessment and Plan: Atypical chest pain, resolved -appears to be more pleuretic, order CTA -could be due to the sinus tachycardia from possible sepsis? -cp reproducible on exam -EKG reviewed, no ACS suspected -she is on aspirin and Eliquis, continue with that. PE seems less likely due to Eliquis -no evidence of bleed on exam. although hgb lower today. could be due to dehydration -TSH normal -no heart history, no leg swelling -She is on metoprolol at home and has not missed a dose (3) Fall: Qualifiers: Encounter type: initial encounter Qualified Code(s): W19.XXXA - Unspecified fall, initial encounter Code(s): W19.XXXA - Unspecified fall, initial encounter Status: Acute Assessment and Plan: Although patient did well with therapy while hospitalized, she was unable to get into her house due to weakness -she was brought back to the hospital and will likely need placement -Continue PT/OT -Now that she is outside of her isolation window, she will be able to walk the halls and do the stairs with rehab which may have been the problem causing re-admission. Her endurance may be low. -spoke with patient and family about plan of care and they agree with SNF (4) Generalized weakness: Code(s): R53.1 - Weakness Status: Acute Assessment and Plan: Continue PT and OT -likely due to prolonged hospitalization and COVID-19 (5) Pulmonary embolism: Qualifiers: Pulmonary embolism type: unspecified Chronicity: unspecified Acute cor pulmonale presence: unspecified Qualified Code(s): I26.99 - Other pulmonary embolism without acute cor pulmonale Code(s): I26.99 - Other pulmonary embolism without acute cor pulmonale Status: Acute Assessment and Plan: CTA chest 02/08 demonstrated a small filling defect in left lower lobe, age indeterminate PE (characteristics more consistent with a resolving PE than an acute PE but cannot rule out acute PE that is tiny/oddly shaped) - Dopplers 02/07 show no DVT PETROS legs. -Continue Eliquis. Repeat CTA chest in 3-6 months is recommended. -hgb dropped likely due to dehydration but to ensure no worsening, will obtain h&H at 12 (6) Transaminitis: Code(s): R74.01 - Elevation of levels of liver transaminase levels Status: Acute Assessment and Plan: improving, Suspect may be related to viral illness with COVID -likely worsened with Remdesivir -Monitor -Hepatitis panel negative as was ultrasound the liver -will need to be repeated in 2 weeks outpatient and I spoke to primary care about following up with his (7) COVID-19 virus infection: Code(s): U07.1 - COVID-19 Status: Acute Assessment and Plan: Symptoms started 01/28/21 -received Remdesivir and dexamethasone -at prior d/c she needed 1 L of oxygen at rest and 3 L with activity and sleep. -She is now on 5L -on Eliquis for PE -no longer in need of isolation (8) Hemoglobin A1c less than 7.0%: Code(s): R73.09 - Other abnormal glucose Status: Acute Assess
[2021-02-19 09:42] LABS: Glucose Point of Care 164 (65-105)
[2021-02-19] MEDS: MAGNESIUM OXIDE 200 MG TABLET PO ×2 (09:54→21:06)
[2021-02-19] MEDS: VITAMIN B COMPLEX CAPSULE 1 CAP PO (09:54)
[2021-02-19] MEDS: METOPROLOL SUCCINATE EXT REL 25 MG TABCR PO (09:54)
[2021-02-19] MEDS: APIXABAN 5 MG TABLET PO ×2 (09:55→21:06)
[2021-02-19] MEDS: LOSARTAN POTASSIUM 50 MG TABLET PO (09:55)
[2021-02-19] MEDS: PANTOPRAZOLE 40 MG TABLET PO (09:55)
[2021-02-19] MEDS: ASPIRIN 81 MG ENTERIC TABLET PO (09:55)
[2021-02-19] MEDS: CALCIUM CARBONATE (OSCAL) 500 MG TABLET PO (09:55)
[2021-02-19 12:15] LABS: Hematocrit 40.9 % (37.0-47.0); Hemoglobin 13.5 g/dL (12.0-15.0)
[2021-02-19] MEDS: UMECLIDINIUM/VILANTEROL 62.5-25 MCG ELLIPTA 1 PUFF INHALATION (13:21)
[2021-02-19 13:37] LABS: Glucose Point of Care 177 (65-105)
[2021-02-19] MEDS: LIDOCAINE 5% PATCH 1 PATCH TRANSDERM (16:15)
--- NOTE | 2021-02-19 16:28 | PC.NURSE ---
This patient, Mariza Garcia, was transferred to [313 ] on 02/19/21 at 1628. Personal belongings sent with patient. Report given to [CHUYITA Galloway ]. Appropriate documentation sent with patient.
--- NOTE | 2021-02-19 16:37 | ADMGEN ---
This patient, Mariza Garcia, was admitted to IMU Room 313-01. Patient/family oriented to hospital policies and general routines including ID bracelet, bed and alarms, visiting hours, pain management, procedures, bathroom and other care routines, personal items, smoking policy, room service/diet, and visiting hours. Information on how to activate the Rapid Response Team has been discussed. Patient/Family are encouraged to report perceived risks to care and to ask questions if they do not understand what they are told or what they should do.
[2021-02-19] MEDS: INSULIN ASPART (*BKC) 100 UNITS/ML SUB-Q (17:01)
[2021-02-19 17:05] LABS: Glucose Point of Care 225 (65-105)
[2021-02-20] VITALS (17 sets, daily range): BP systolic 97–163; BP diastolic 40–65; PULSE 76–111; RESP 18–20; TEMP 36.4–38.5; O2SAT 90–92
[2021-02-20 06:17] LABS: Basophils Absolute Auto 0.1 K/mm3 (0.0-0.1); Basophils Percent Auto 0.6 % (0.2-1.2); Eosinophils Absolute Auto 0.1 K/mm3 (0-0.3); Eosinophils Percent Auto 0.5 % (0-4.4); Hematocrit 36.1 % (37.0-47.0); Hemoglobin 11.8 g/dL (12.0-15.0); Immature Granulocyte Absolute 0.72 K/mm3 (0.00-0.031); Immature Granulocyte Percent A 5.2 % (0-0.5); Lymphocytes Absolute Auto 0.72 K/mm3 (0.9-3.2); Lymphocytes Percent Auto 5.2 % (18.3-44.2); Mean Corpuscular HGB Conc 32.7 g/dl (32-36); Mean Corpuscular Hemoglobin 29.6 pg (26-34); Mean Corpuscular Volume 90.7 fl (80-100); Mean Platelet Volume 10.8 fl (7.4-10.4); Monocytes Percent Auto 7.1 % (2.6-8.5); Neutrophils Absolute Auto 11.3 K/mm3 (1.3-6.7); Neutrophils Percent Auto 81.4 % (45.5-73.1); Platelet Count Result 154 k/mm3 (150-375); Red Blood Count 3.98 M/mm3 (4.2-5.4); Red Cell Distribution Width 14.3 % (11.5-14.5); White Blood Count 13.9 K/mm3 (4.5-10.0)
[2021-02-20 06:23] LABS: Glucose Point of Care 222 (65-105)
[2021-02-20 06:32] LABS: Alanine Aminotransferase 226 U/L (4-35); Albumin Level 2.5 g/dL (3.5-5.1); Alkaline Phosphatase 145 U/L (38-126); Anion Gap 2 mmol/L (8-16); Aspartate Amino Transferase 153 U/L (14-36); Bilirubin,Total 0.6 mg/dL (0.2-1.3); Blood Urea Nitrogen 25 mg/dL (7-17); Calcium 7.9 mg/dL (8.4-10.2); Carbon Dioxide 30 mmol/L (22-30); Chloride 102 mmol/L (98-107); Estimated CRCL calculation 39 ml/min; Estimated Glomerular Filt Rate 34; Glucose 182 mg/dL (65-105); Potassium 3.5 mmol/L (3.4-5.0); Sodium 134 mmol/L (137-145)
[2021-02-20 06:37] LABS: CRP 20.1 mg/dL (<1.0)
[2021-02-20] MEDS: ACETAMINOPHEN 325 MG TABLET 650 MG PO ×3 (07:07→22:56)
[2021-02-20 08:26] LABS: Glucose Point of Care 184 (65-105)
[2021-02-20] MEDS: METOPROLOL SUCCINATE EXT REL 25 MG TABCR PO (08:43)
[2021-02-20] MEDS: ASPIRIN 81 MG ENTERIC TABLET PO (08:45)
[2021-02-20] MEDS: PANTOPRAZOLE 40 MG TABLET PO (08:45)
[2021-02-20] MEDS: CALCIUM CARBONATE (OSCAL) 500 MG TABLET PO (08:45)
[2021-02-20] MEDS: APIXABAN 5 MG TABLET PO ×2 (08:45→20:59)
[2021-02-20] MEDS: VITAMIN B COMPLEX CAPSULE 1 CAP PO (08:45)
[2021-02-20] MEDS: MAGNESIUM OXIDE 200 MG TABLET PO ×2 (08:45→20:59)
[2021-02-20] MEDS: LIDOCAINE 5% PATCH 1 PATCH TRANSDERM (08:46)
[2021-02-20] MEDS: UMECLIDINIUM/VILANTEROL 62.5-25 MCG ELLIPTA 1 PUFF INHALATION (08:50)
--- NOTE | 2021-02-20 09:59 | PM.PNCARD ---
Progress Note: A&P Assessment and Plan (1) Generalized weakness: Code(s): R53.1 - Weakness Status: Acute (2) COVID-19 virus infection: Code(s): U07.1 - COVID-19 Status: Acute (3) Sinus tachycardia: Code(s): R00.0 - Tachycardia, unspecified Status: Acute Assessment and Plan: Multifactorial and likely physiologic in the setting of COVID pneumonia with possible superimposed bacteremia infection, recent PE and poor oral intake Her heart rate normalized Her echocardiogram shows no structural heart disease Subjective Date/time seen: 02/20/21 Pt feels better and states that her symptoms are improving. Pt was seen and examined, chart was reviewed, case d/w hospitalist's team and pt's nurse. Review of Systems Review of Systems: All systems reviewed & are unremarkable except as noted in HPI and below Constitutional: Constitutional: Reports as per HPI Eyes: Eyes: Reports as per HPI ENT: Reports system reviewed and no additional complaints, except as documented and Reports as per HPI Cardiovascular: Cardiovascular: Reports as per HPI Respiratory: Respiratory: Reports as per HPI Gastrointestinal: Gastrointestinal: Reports as per HPI Genitourinary: Genitourinary: Reports as per HPI Musculoskeletal: Musculoskeletal: Reports as per HPI Exam Const: General: no acute distress Nutritional Appearance: well nourished Orientation/consciousness: patient oriented x3 HENMT: Head: normal to inspection and atraumatic Ears: hearing grossly normal bilaterally Face and sinus: normal facial exam Eyes: General: appearance normal, both eyes and all related structures Pupils: Equal, round and reactive pupils present EOM: EOMs intact bilaterally Neck: Neck: supple Chest: Chest palpation & inspection: normal inspection of the chest Resp: Effort & Inspection: normal respiratory effort and no respiratory distress Auscultation: clear to auscultation bilaterally Cardio: Jugular venous distension: no JVD Rate: regular rate Heart sounds: S1 normal heart sound present, S2 normal heart sound present and no murmurs Peripheral pulses: Peripheral pulses 2+ throughout GI: GI Palp: No abdominal tenderness Auscultation: normal bowel sounds Skin: General skin exam: normal color Neuro: General: patient oriented x3 Cranial nerves: Yes Equal, round and reactive pupils present Extrem: General: normal to inspection and no clubbing, cyanosis or edema Objective Data Vital Signs Vital Signs: Vital Signs - 24 hr 02/19/21 10:00 02/19/21 12:00 02/19/21 12:30 Temperature 36.6 C Pulse Rate 88 108 H 120 H Respiratory Rate 22 H Blood Pressure 98/55 L Pulse Oximetry 100 02/19/21 13:58 02/19/21 14:46 02/19/21 14:50 Temperature Pulse Rate Respiratory Rate Blood Pressure Pulse Oximetry 99 88 L 92 02/19/21 16:00 02/19/21 16:43 02/19/21 16:46 Temperature 36.7 C Pulse Rate 98 102 H Respiratory Rate 18 Blood Pressure 93/54 L Pulse Oximetry 91 90 02/19/21 20:00 02/19/21 22:00 02/20/21 00:00 Temperature 36.5 C Pulse Rate 99 100 97 Respiratory Rate 20 Blood Pressure 96/49 L Pulse Oximetry 92 02/20/21 04:00 02/20/21 06:00 02/20/21 06:55 Temperature 36.6 C Pulse Rate 76 76 Respiratory Rate 18 Blood Pressure 105/40 L 163/65 H Pulse Oximetry 92 02/20/21 08:43 02/20/21 09:03 02/20/21 09:19 Temperature Pulse Rate 84 Respiratory Rate Blood Pressure Pulse Oximetry 92 92 Intake/Output Intake/Output: Intake & Output 02/17/21 02/18/21 02/19/21 02/20/21 23:59 23:59 23:59 23:59 Intake Total 2675 1500 2230 100 Output Total 126 048 7639 250 Balance 2175 1250 1130 -150 Meds/Results Medications: Active Medications Generic Name Dose Route Start Last Admin Trade Name Kobi PRN Reason Stop Dose Admin Acetaminophen 650 mg 02/18/21 16:39 02/20/21 07:07 Acetaminophen 325 Mg Tablet PO 650 mg Q6H PRN
--- NOTE | 2021-02-20 10:02 | PM.IMPN ---
Progress Note: A&P Assessment and Plan (1) Sepsis: Code(s): A41.9 - Sepsis, unspecified organism Status: Acute Assessment and Plan: Sepsis noted 02/18 when the patient had sustained tachycardia in the 150s with a low grade temp 99.1 and a leukocytosis. -She was started on vanc + zosyn for possible 2ndary bacterial infection -CTA 02/19 revealed worsening pneumonia which looks more consistent with a secondary bacterial infection ontop of her COVID-19 -Procalcitonin was drawn which was normal, UA does not look suspicious, and lactic was normal -leukocytosis improving -monitor blood cultures (2) Pneumonia: Code(s): J18.9 - Pneumonia, unspecified organism Status: Acute Assessment and Plan: As stated above the CT appears to be more consistent with a bacterial infection on top of COVID infection. Will continue vancomycin and Zosyn at this time. -Will try to obtain a sputum culture (3) Chest pain: Code(s): R07.9 - Chest pain, unspecified Status: Acute Assessment and Plan: Atypical chest pain, likely due to worsened PNA -appears to be more pleuretic, trop - x3 -could be due to the sinus tachycardia from sepsis -cp reproducible on exam -EKG reviewed, no ACS suspected -she is on aspirin and Eliquis, continue with that. PE seems less likely due to Eliquis -no evidence of bleed on exam. although hgb lower today. could be due to dehydration -TSH normal -no heart history, no leg swelling -She is on metoprolol at home and has not missed a dose -cardiology onboard. (4) Fall: Qualifiers: Encounter type: initial encounter Qualified Code(s): W19.XXXA - Unspecified fall, initial encounter Code(s): W19.XXXA - Unspecified fall, initial encounter Status: Acute Assessment and Plan: Although patient did well with therapy while hospitalized, she was unable to get into her house due to weakness -she was brought back to the hospital and will likely need placement -Continue PT/OT -Now that she is outside of her isolation window, she will be able to walk the halls and do the stairs with rehab which may have been the problem causing re-admission. Her endurance may be low. -spoke with patient and family about plan of care and they agree with SNF (5) Generalized weakness: Code(s): R53.1 - Weakness Status: Acute Assessment and Plan: Continue PT and OT -likely due to prolonged hospitalization and COVID-19 (6) Pulmonary embolism: Qualifiers: Pulmonary embolism type: unspecified Chronicity: unspecified Acute cor pulmonale presence: unspecified Qualified Code(s): I26.99 - Other pulmonary embolism without acute cor pulmonale Code(s): I26.99 - Other pulmonary embolism without acute cor pulmonale Status: Acute Assessment and Plan: CTA chest 02/08 demonstrated a small filling defect in left lower lobe, age indeterminate PE and repeat 02/19 shows no change - Dopplers 02/07 show no DVT PETROS legs. -Continue Eliquis. Repeat CTA chest in 3-6 months is recommended. -hgb dropped but no signs of bleeding right now (7) Transaminitis: Code(s): R74.01 - Elevation of levels of liver transaminase levels Status: Acute Assessment and Plan: improving, Suspect may be related to viral illness with COVID but a little worse today 2 to bacterial infx -Monitor -Hepatitis panel negative as was ultrasound the liver -will need to be repeated in 2 weeks outpatient and I spoke to primary care about following up with his (8) COVID-19 virus infection: Code(s): U07.1 - COVID-19 Status: Acute Assessment and Plan: Symptoms started 01/28/21 -received Remdesivir and dexamethasone -at prior d/c she needed 1 L of oxygen at rest and 3 L with activity and sleep. Now on 2 L -on Eliquis for PE -no longer in need of isolation (9) Hemoglobin A1c less than 7.0%: Code(s): R73.09
[2021-02-20 11:51] LABS: Glucose Point of Care 170 (65-105)
[2021-02-20] MEDS: LACTATED RINGERS 1,000 ML 100 ML IV CONT (11:59)
[2021-02-20] MEDS: polyethylene glycoL 3350 17 GM POWD.PACK PO (12:10)
[2021-02-20 14:29] LABS: Vancomycin Trough 17.4 ug/mL (10.0-20.0)
[2021-02-20 17:00] LABS: Glucose Point of Care 150 (65-105)
[2021-02-20] MEDS: SENNOSIDES 8.6 MG TABLET PO (20:59)
[2021-02-20 22:04] LABS: Glucose Point of Care 207 (65-105)
[2021-02-21] VITALS (13 sets, daily range): BP systolic 104–120; BP diastolic 43–67; PULSE 74–110; RESP 18–24; TEMP 36.2–37.1; O2SAT 85–93
[2021-02-21] MEDS: LACTATED RINGERS 1,000 ML 100 ML IV CONT ×2 (02:23→15:25)
[2021-02-21] MEDS: ACETAMINOPHEN 325 MG TABLET 650 MG PO (04:38)
[2021-02-21 06:41] LABS: Alanine Aminotransferase 293 U/L (4-35); Albumin Level 2.5 g/dL (3.5-5.1); Alkaline Phosphatase 195 U/L (38-126); Aspartate Amino Transferase 200 U/L (14-36); Bilirubin,Total 0.6 mg/dL (0.2-1.3); Magnesium 1.9 mg/dL (1.6-2.3); Phosphorus 2.7 mg/dL (2.5-4.5)
[2021-02-21 06:43] LABS: Basophils Absolute Auto 0.1 K/mm3 (0.0-0.1); Basophils Percent Auto 0.4 % (0.2-1.2); Eosinophils Absolute Auto 0.1 K/mm3 (0-0.3); Eosinophils Percent Auto 0.8 % (0-4.4); Hematocrit 33.3 % (37.0-47.0); Hemoglobin 11.2 g/dL (12.0-15.0); Immature Granulocyte Absolute 0.73 K/mm3 (0.00-0.031); Immature Granulocyte Percent A 6.2 % (0-0.5); Lymphocytes Percent Auto 5.9 % (18.3-44.2); Mean Corpuscular HGB Conc 33.6 g/dl (32-36); Mean Corpuscular Hemoglobin 30.4 pg (26-34); Mean Corpuscular Volume 90.5 fl (80-100); Mean Platelet Volume 11.4 fl (7.4-10.4); Monocytes Absolute Auto 0.8 K/mm3 (0.1-0.6); Neutrophils Absolute Auto 9.4 K/mm3 (1.3-6.7); Neutrophils Percent Auto 79.7 % (45.5-73.1); Platelet Count Result 156 k/mm3 (150-375); Red Blood Count 3.68 M/mm3 (4.2-5.4); Red Cell Distribution Width 14.3 % (11.5-14.5); White Blood Count 11.8 K/mm3 (4.5-10.0)
[2021-02-21 06:52] LABS: CRP 17.3 mg/dL (<1.0)
[2021-02-21 06:57] LABS: Anisocytosis 1+ (NORMAL); Microcytosis 1+ (NORMAL); Platelet Estimate Adequate (Adequate); Poikilocytosis 1+ (NORMAL)
[2021-02-21 07:55] LABS: Glucose Point of Care 189 (65-105)
[2021-02-21] MEDS: LIDOCAINE 5% PATCH 1 PATCH TRANSDERM (09:58)
[2021-02-21] MEDS: ASPIRIN 81 MG ENTERIC TABLET PO (09:59)
[2021-02-21] MEDS: APIXABAN 5 MG TABLET PO ×2 (09:59→21:00)
[2021-02-21] MEDS: VITAMIN B COMPLEX CAPSULE 1 CAP PO (09:59)
[2021-02-21] MEDS: METOPROLOL SUCCINATE EXT REL 25 MG TABCR PO (09:59)
[2021-02-21] MEDS: CALCIUM CARBONATE (OSCAL) 500 MG TABLET PO (10:00)
[2021-02-21] MEDS: MAGNESIUM OXIDE 200 MG TABLET PO ×2 (10:00→21:01)
[2021-02-21] MEDS: PANTOPRAZOLE 40 MG TABLET PO (10:01)
[2021-02-21] MEDS: UMECLIDINIUM/VILANTEROL 62.5-25 MCG ELLIPTA 1 PUFF INHALATION (10:02)
--- NOTE | 2021-02-21 11:29 | PCPTNOTE ---
The patient treatment was not able to be completed on 02-21-2021 due to patient stated feeling tired and wanted to try later. Will plan to continue treatment per plan of care.
[2021-02-21 12:01] LABS: Glucose Point of Care 170 (65-105)
--- NOTE | 2021-02-21 14:10 | PM.IMPN ---
Progress Note: A&P Assessment and Plan (1) Sepsis: Code(s): A41.9 - Sepsis, unspecified organism Status: Acute Assessment and Plan: Sepsis noted 02/18 when the patient had sustained tachycardia in the 150s with a low grade temp 99.1 and leukocytosis. She was started on vanc + zosyn for possible secondary bacterial infection (day 4). CTA 02/19 revealed worsening pneumonia which may represent a secondary bacterial infection superimposed on COVID pneumonia. Procalcitonin was normal, UA does not appear to represent infection, and lactic was normal Leukocytosis improving Monitor blood cultures, vital signs, and urine output. Patient tells me she is not afraid to and she feels like she is ready . We had a long conversation at the bedside about her goals of care. Her sister, Massimo, comes to the bedside during our conversation and we have discussed this all together. Patient is very tearful. We have discussed we will continue her current treatment plan for now and per patient's request, I will contact her son Manuel regarding this conversation. Patient hopes to meet with family tomorrow and we can do a phone conference during my visit. (2) Pneumonia: Code(s): J18.9 - Pneumonia, unspecified organism Status: Acute Assessment and Plan: Patient has received treatment last week for COVID pneumonia which is now worsening as evidenced by repeat CT 02/19. This may represent bacterial pneumonia superimposed on her known COVID thus we will continue empiric antibiotic therapy with vancomycin and Zosyn. Collect sputum culture if she can produce one. (3) Chest pain: Code(s): R07.9 - Chest pain, unspecified Status: Acute Assessment and Plan: Atypical chest pain, likely due to worsened PNA. Appears pleuritic; troponins negative x3. CP reproducible on exam. ACS not suspected. Appreciate cardiology input. (4) Fall: Qualifiers: Encounter type: initial encounter Qualified Code(s): W19.XXXA - Unspecified fall, initial encounter Code(s): W19.XXXA - Unspecified fall, initial encounter Status: Acute Assessment and Plan: Although patient did well with therapy while hospitalized, she was unable to get into her house due to weakness She was brought back to the hospital and will likely need placement. Continue PT/OT. Endurance is low. (5) Generalized weakness: Code(s): R53.1 - Weakness Status: Acute Assessment and Plan: Continue PT and OT. Likely due to prolonged hospitalization and COVID-19 (6) Pulmonary embolism: Qualifiers: Acute cor pulmonale presence: unspecified Chronicity: unspecified Pulmonary embolism type: unspecified Qualified Code(s): I26.99 - Other pulmonary embolism without acute cor pulmonale Code(s): I26.99 - Other pulmonary embolism without acute cor pulmonale Status: Acute Assessment and Plan: CTA chest 02/08 demonstrated a small filling defect in left lower lobe, age indeterminate PE and repeat 02/19 shows no change Dopplers 02/07 show no DVT PETROS legs. Continue Eliquis. Repeat CTA chest in 3-6 months is recommended. (7) Transaminitis: Code(s): R74.01 - Elevation of levels of liver transaminase levels Status: Acute Assessment and Plan: Suspect may be related to viral illness with COVID. Hepatitis panel negative as was RUQ ultrasound. Recommend repeat LFTs in 2 weeks outpatient, previous provider spoke with PCP regarding this. (8) COVID-19 virus infection: Code(s): U07.1 - COVID-19 Status: Acute Assessment and Plan: Symptoms started 01/28/21. COVID positive 01/30
[2021-02-21] MEDS: LORazepam INJ (*CRX) 2 MG/ML VIAL 0.5 MG IV PUSH (15:25)
--- NOTE | 2021-02-21 16:14 | PCPTNOTE ---
The patient treatment was not able to be completed on 02-21-2021 due to patient tired, short of breath and appears anxious. VICTIM WITNESS ADMINISTRATOR informed R.N. Will plan to continue treatment per plan of care.
[2021-02-21 17:20] LABS: Glucose Point of Care 120 (65-105)
[2021-02-21] MEDS: SENNOSIDES 8.6 MG TABLET PO (21:01)
[2021-02-22] VITALS (11 sets, daily range): BP systolic 110–124; BP diastolic 66–78; PULSE 70–96; RESP 16–20; TEMP 36.1–37.1; O2SAT 90–99
[2021-02-22 01:03] LABS: Glucose Point of Care 194 (65-105)
[2021-02-22] MEDS: LORazepam INJ (*CRX) 2 MG/ML VIAL 0.5 MG IV PUSH ×2 (02:27→14:19)
[2021-02-22 06:28] LABS: Basophils Absolute Auto 0.1 K/mm3 (0.0-0.1); Basophils Percent Auto 0.8 % (0.2-1.2); Eosinophils Absolute Auto 0.1 K/mm3 (0-0.3); Hematocrit 32.1 % (37.0-47.0); Hemoglobin 10.5 g/dL (12.0-15.0); Immature Granulocyte Absolute 0.59 K/mm3 (0.00-0.031); Immature Granulocyte Percent A 5.4 % (0-0.5); Lymphocytes Absolute Auto 0.78 K/mm3 (0.9-3.2); Lymphocytes Percent Auto 7.1 % (18.3-44.2); Mean Corpuscular HGB Conc 32.7 g/dl (32-36); Mean Corpuscular Hemoglobin 29.3 pg (26-34); Mean Corpuscular Volume 89.7 fl (80-100); Mean Platelet Volume 10.8 fl (7.4-10.4); Monocytes Absolute Auto 0.9 K/mm3 (0.1-0.6); Monocytes Percent Auto 8.4 % (2.6-8.5); Neutrophils Absolute Auto 8.4 K/mm3 (1.3-6.7); Neutrophils Percent Auto 77.3 % (45.5-73.1); Platelet Count Result 150 k/mm3 (150-375); Red Blood Count 3.58 M/mm3 (4.2-5.4); Red Cell Distribution Width 14.4 % (11.5-14.5); White Blood Count 10.9 K/mm3 (4.5-10.0)
[2021-02-22 06:49] LABS: Potassium 3.4 mmol/L (3.4-5.0)
[2021-02-22 07:02] LABS: Alanine Aminotransferase 247 U/L (4-35); Albumin Level 2.5 g/dL (3.5-5.1); Alkaline Phosphatase 211 U/L (38-126); Anion Gap 5 mmol/L (8-16); Aspartate Amino Transferase 111 U/L (14-36); Bilirubin,Total 0.6 mg/dL (0.2-1.3); Blood Urea Nitrogen 18 mg/dL (7-17); CRP 14.7 mg/dL (<1.0); Calcium 7.9 mg/dL (8.4-10.2); Carbon Dioxide 28 mmol/L (22-30); Chloride 104 mmol/L (98-107); Creatine Kinase 79 U/L (30-135); Estimated CRCL calculation 48 ml/min; Estimated Glomerular Filt Rate 44; Glucose 167 mg/dL (65-105); Magnesium 1.8 mg/dL (1.6-2.3); Sodium 137 mmol/L (137-145)
[2021-02-22 08:25] LABS: Glucose Point of Care 142 (65-105)
[2021-02-22] MEDS: ASPIRIN 81 MG ENTERIC TABLET PO (09:59)
[2021-02-22] MEDS: VITAMIN B COMPLEX CAPSULE 1 CAP PO (09:59)
[2021-02-22] MEDS: PANTOPRAZOLE 40 MG TABLET PO (09:59)
[2021-02-22] MEDS: MAGNESIUM OXIDE 200 MG TABLET PO ×2 (09:59→20:46)
[2021-02-22] MEDS: APIXABAN 5 MG TABLET PO ×2 (10:00→20:47)
[2021-02-22] MEDS: POTASSIUM CHLORIDE 20 MEQ TABLET PO (10:00)
[2021-02-22] MEDS: METOPROLOL SUCCINATE EXT REL 25 MG TABCR PO (10:00)
[2021-02-22] MEDS: CALCIUM CARBONATE (OSCAL) 500 MG TABLET PO (10:00)
[2021-02-22] MEDS: UMECLIDINIUM/VILANTEROL 62.5-25 MCG ELLIPTA 1 PUFF INHALATION (10:01)
[2021-02-22] MEDS: LIDOCAINE 5% PATCH 1 PATCH TRANSDERM (10:01)
[2021-02-22] MEDS: LACTATED RINGERS 1,000 ML 75 ML IV CONT (10:02)
[2021-02-22 13:13] LABS: Glucose Point of Care 141 (65-105)
--- NOTE | 2021-02-22 14:40 | PM.IMPN ---
Progress Note: A&P Assessment and Plan (1) Sepsis: Code(s): A41.9 - Sepsis, unspecified organism Status: Acute Assessment and Plan: Sepsis noted 02/18 when the patient had sustained tachycardia in the 150s and leukocytosis. She was started on vanc + zosyn for possible secondary bacterial respiratory infection (day 5). CTA 02/19 revealed worsening pneumonia which may represent a secondary bacterial infection superimposed on COVID pneumonia. Procalcitonin was normal, UA does not appear to represent infection, and lactic was normal Leukocytosis improving Monitor blood cultures, vital signs, and urine output. Patient tells me she is not afraid to and she feels like she is ready . We had long conversations about further goals of care with patient and family yesterday and today. I met with patient's daughter, Flor, at bedside and son and sister on video chat. Mariza describes she would like to try antibiotic therapy for total of 1 week (through Friday). If she feels no improvement at that time, she is interested in pursuing hospice services. Patient and family are all in agreement for this plan. I have answered all of everyone's questions to their satisfaction and offered condolences and support. Care coordination aware. I will touch base with plate painter apprentice in also. (2) Pneumonia: Code(s): J18.9 - Pneumonia, unspecified organism Status: Acute Assessment and Plan: Patient has received treatment last week for COVID pneumonia which is now worsening as evidenced by repeat CT 02/19. This may represent bacterial pneumonia superimposed on her known COVID thus we will continue empiric antibiotic therapy with vancomycin and Zosyn. Collect sputum culture if she can produce one. (3) Chest pain: Code(s): R07.9 - Chest pain, unspecified Status: Acute Assessment and Plan: None today. Atypical chest pain, likely due to worsened PNA. Appears pleuritic; troponins negative x3. CP reproducible on exam. ACS not suspected. Appreciate cardiology input. (4) Fall: Qualifiers: Encounter type: initial encounter Qualified Code(s): W19.XXXA - Unspecified fall, initial encounter Code(s): W19.XXXA - Unspecified fall, initial encounter Status: Acute Assessment and Plan: Although patient did well with therapy while hospitalized, she was unable to get into her house due to weakness. She was brought back to the hospital and will likely need placement. Continue PT/OT. Endurance is low. (5) Generalized weakness: Code(s): R53.1 - Weakness Status: Acute Assessment and Plan: Continue PT and OT. Likely due to prolonged hospitalization and COVID-19 (6) Pulmonary embolism: Qualifiers: Acute cor pulmonale presence: unspecified Chronicity: unspecified Pulmonary embolism type: unspecified Qualified Code(s): I26.99 - Other pulmonary embolism without acute cor pulmonale Code(s): I26.99 - Other pulmonary embolism without acute cor pulmonale Status: Acute Assessment and Plan: CTA chest 02/08 demonstrated a small filling defect in left lower lobe, age indeterminate PE and repeat 02/19 shows no change Dopplers 02/07 show no DVT PETROS legs. Continue Eliquis. Repeat CTA chest in 3-6 months is recommended. (7) Transaminitis: Code(s): R74.01 - Elevation of levels of liver transaminase levels Status: Acute Assessment and Plan: Suspect may be related to viral illness with COVID. Hepatitis panel negative as was RUQ ultrasound. Recommend repeat LFTs in 2 weeks outpatient, previous provider spoke with PCP regarding this. (8) COVID-
[2021-02-22 17:29] LABS: Glucose Point of Care 114 (65-105)
[2021-02-22] MEDS: SENNOSIDES 8.6 MG TABLET PO (20:46)
[2021-02-22 21:19] LABS: Vancomycin Trough 13.9 ug/mL (10.0-20.0)
[2021-02-23] VITALS (12 sets, daily range): BP systolic 106–110; BP diastolic 54–61; PULSE 78–96; RESP 18–20; TEMP 36.3–37; O2SAT 90–97
[2021-02-23 00:16] LABS: Glucose Point of Care 148 (65-105)
[2021-02-23] MEDS: LORazepam INJ (*CRX) 2 MG/ML VIAL 0.5 MG IV PUSH ×2 (01:38→21:26)
[2021-02-23] MEDS: LACTATED RINGERS 1,000 ML 75 ML IV CONT ×2 (04:25→17:59)
[2021-02-23 06:08] LABS: Basophils Absolute Auto 0.1 K/mm3 (0.0-0.1); Basophils Percent Auto 0.9 % (0.2-1.2); Eosinophils Absolute Auto 0.2 K/mm3 (0-0.3); Hematocrit 32.5 % (37.0-47.0); Hemoglobin 10.7 g/dL (12.0-15.0); Immature Granulocyte Absolute 0.78 K/mm3 (0.00-0.031); Lymphocytes Absolute Auto 0.87 K/mm3 (0.9-3.2); Lymphocytes Percent Auto 8.9 % (18.3-44.2); Mean Corpuscular HGB Conc 32.9 g/dl (32-36); Mean Corpuscular Hemoglobin 29.7 pg (26-34); Mean Corpuscular Volume 90.3 fl (80-100); Mean Platelet Volume 10.7 fl (7.4-10.4); Monocytes Absolute Auto 0.8 K/mm3 (0.1-0.6); Monocytes Percent Auto 8.5 % (2.6-8.5); Neutrophils Percent Auto 71.7 % (45.5-73.1); Platelet Count Result 144 k/mm3 (150-375); Red Cell Distribution Width 14.5 % (11.5-14.5); White Blood Count 9.8 K/mm3 (4.5-10.0)
[2021-02-23 06:20] LABS: Alanine Aminotransferase 216 U/L (4-35); Albumin Level 2.5 g/dL (3.5-5.1); Alkaline Phosphatase 219 U/L (38-126); Anion Gap 3 mmol/L (8-16); Aspartate Amino Transferase 96 U/L (14-36); Bilirubin,Total 0.5 mg/dL (0.2-1.3); Blood Urea Nitrogen 15 mg/dL (7-17); Calcium 8.2 mg/dL (8.4-10.2); Carbon Dioxide 29 mmol/L (22-30); Chloride 105 mmol/L (98-107); Estimated CRCL calculation 48 ml/min; Estimated Glomerular Filt Rate 44; Glucose 127 mg/dL (65-105); Magnesium 1.8 mg/dL (1.6-2.3); Potassium 3.3 mmol/L (3.4-5.0); Sodium 137 mmol/L (137-145)
[2021-02-23 07:58] LABS: Glucose Point of Care 121 (65-105)
[2021-02-23] MEDS: METOPROLOL SUCCINATE EXT REL 25 MG TABCR PO (09:00)
[2021-02-23] MEDS: CALCIUM CARBONATE (OSCAL) 500 MG TABLET PO (09:00)
[2021-02-23] MEDS: ASPIRIN 81 MG ENTERIC TABLET PO (09:00)
[2021-02-23] MEDS: MAGNESIUM OXIDE 200 MG TABLET PO ×2 (09:00→21:28)
[2021-02-23] MEDS: VITAMIN B COMPLEX CAPSULE 1 CAP PO (09:00)
[2021-02-23] MEDS: APIXABAN 5 MG TABLET PO ×2 (09:02→21:28)
[2021-02-23] MEDS: UMECLIDINIUM/VILANTEROL 62.5-25 MCG ELLIPTA 1 PUFF INHALATION (09:02)
[2021-02-23] MEDS: PANTOPRAZOLE 40 MG TABLET PO (09:02)
--- NOTE | 2021-02-23 09:20 | PM.PNCARD ---
Progress Note: A&P Assessment and Plan (1) Sinus tachycardia: Code(s): R00.0 - Tachycardia, unspecified Status: Acute Assessment and Plan: Multifactorial and likely physiologic in the setting of COVID pneumonia with possible superimposed bacteremia infection, recent PE and poor oral intake Her heart rate normalized Her echocardiogram shows no structural heart disease (2) COVID-19 virus infection: Code(s): U07.1 - COVID-19 Status: Acute (3) Generalized weakness: Code(s): R53.1 - Weakness Status: Acute Subjective Date/time seen: 02/23/21 Pt feels much better and states that her symptoms are improving. Pt was seen and examined, chart was reviewed, case d/w pt's nurse. Review of Systems Review of Systems: All systems reviewed & are unremarkable except as noted in HPI and below Constitutional: Constitutional: Reports as per HPI Eyes: Eyes: Reports as per HPI ENT: Reports system reviewed and no additional complaints, except as documented and Reports as per HPI Cardiovascular: Cardiovascular: Reports as per HPI Respiratory: Respiratory: Reports as per HPI Gastrointestinal: Gastrointestinal: Reports as per HPI Genitourinary: Genitourinary: Reports as per HPI Musculoskeletal: Musculoskeletal: Reports as per HPI Exam Const: General: no acute distress Nutritional Appearance: well nourished Orientation/consciousness: patient oriented x3 HENMT: Head: normal to inspection and atraumatic Ears: hearing grossly normal bilaterally Face and sinus: normal facial exam Eyes: General: appearance normal, both eyes and all related structures Pupils: Equal, round and reactive pupils present EOM: EOMs intact bilaterally Neck: Neck: supple Chest: Chest palpation & inspection: normal inspection of the chest Resp: Effort & Inspection: normal respiratory effort and no respiratory distress Auscultation: clear to auscultation bilaterally Cardio: Jugular venous distension: no JVD Rate: regular rate Heart sounds: S1 normal heart sound present, S2 normal heart sound present and no murmurs Peripheral pulses: Peripheral pulses 2+ throughout GI: GI Palp: No abdominal tenderness Auscultation: normal bowel sounds Skin: General skin exam: normal color Neuro: General: patient oriented x3 Cranial nerves: Yes Equal, round and reactive pupils present Extrem: General: normal to inspection and no clubbing, cyanosis or edema Objective Data Vital Signs Vital Signs: Vital Signs - 24 hr 02/22/21 10:00 02/22/21 10:20 02/22/21 12:00 Temperature Pulse Rate 90 95 Respiratory Rate Blood Pressure Pulse Oximetry 90 02/22/21 14:00 02/22/21 16:00 02/22/21 20:00 Temperature 36.2 C L Pulse Rate 70 96 92 Respiratory Rate 16 Blood Pressure 110/78 Pulse Oximetry 99 02/22/21 22:00 02/23/21 00:00 02/23/21 04:00 Temperature 36.1 C L Pulse Rate 94 82 84 Respiratory Rate 20 Blood Pressure 124/66 Pulse Oximetry 92 02/23/21 06:00 02/23/21 09:00 Temperature 36.3 C L Pulse Rate 82 78 Respiratory Rate 20 Blood Pressure 110/54 L Pulse Oximetry 91 Intake/Output Intake/Output: Intake & Output 02/20/21 02/21/21 02/22/21 02/23/21 23:59 23:59 23:59 23:59 Intake Total 2380 2040 4340 350 Output Total 750 700 400 Balance 1630 1340 4340 -50 Meds/Results Medications: Active Medications Generic Name Dose Route Start Last Admin Trade Name Freq PRN Reason Stop Dose Admin Acetaminophen 650 mg 02/18/21 16:39 02/21/21 04:38 Acetaminophen 325 Mg Tablet PO 650 mg Q6H PRN Administration Mild Pain (1-3) or Fever Hydrocodone Bitart/Acetaminophen 1 tab 02/21/21 17:59 Hydrocodone/Acetaminophen (*Crx) 5-325 Mg Tablet PO Q6H PRN Pain Rated 4-6 Apixaban 5 mg 02/17/21 09:00 02/23/21 09:02 Apixaban 5 Mg Tablet PO 5 mg Q12HR SRINI Administration Aspirin 81 mg 02/17/21 09:00 02/23/21 09:00 Aspirin 81 Mg Enteric
[2021-02-23] MEDS: POTASSIUM CHLORIDE 20 MEQ TABLET 40 MEQ PO (12:17)
[2021-02-23 12:23] LABS: Glucose Point of Care 179 (65-105)
--- NOTE | 2021-02-23 14:13 | PM.IMPN ---
Progress Note: A&P Assessment and Plan (1) Sepsis: Code(s): A41.9 - Sepsis, unspecified organism Status: Acute Assessment and Plan: Sepsis noted 02/18 when the patient had sustained tachycardia in the 150s and leukocytosis. She was started on vanc + zosyn for possible secondary bacterial respiratory infection (day 6). CTA 02/19 revealed worsening pneumonia which may represent a secondary bacterial infection superimposed on COVID pneumonia. Procalcitonin was normal, UA does not appear to represent infection, and lactic was normal Leukocytosis resolving. Monitor blood cultures, vital signs, and urine output. Patient tells me she is not afraid to and she feels like she is ready . Long conversations have been held regarding further goals of care. Plan is now to complete 7-day course of antibiotics then discharge to SNF tomorrow or Friday. Patient would like to get stronger at SNF prior to going home. If she wishes for hospice services or palliative care approach after that, this can be arranged at that time. Patient and family in agreement of plan. (2) Pneumonia: Code(s): J18.9 - Pneumonia, unspecified organism Status: Acute Assessment and Plan: Patient has received treatment for COVID pneumonia which is now worsening as evidenced by repeat CT 02/19. This may represent bacterial pneumonia superimposed on her known COVID thus we will continue empiric antibiotic therapy with vancomycin and Zosyn. Collect sputum culture if she can produce one. (3) Chest pain: Code(s): R07.9 - Chest pain, unspecified Status: Acute Assessment and Plan: None today. Atypical chest pain, likely due to worsened PNA. Appears pleuritic; troponins negative x3. CP reproducible on exam. ACS not suspected. Appreciate cardiology input. (4) Fall: Qualifiers: Encounter type: initial encounter Qualified Code(s): W19.XXXA - Unspecified fall, initial encounter Code(s): W19.XXXA - Unspecified fall, initial encounter Status: Acute Assessment and Plan: Continue PT/OT. Endurance is low. Dispo is SNF. (5) Generalized weakness: Code(s): R53.1 - Weakness Status: Acute Assessment and Plan: Continue PT and OT. Likely due to prolonged hospitalization and COVID-19 (6) Pulmonary embolism: Qualifiers: Acute cor pulmonale presence: unspecified Chronicity: unspecified Pulmonary embolism type: unspecified Qualified Code(s): I26.99 - Other pulmonary embolism without acute cor pulmonale Code(s): I26.99 - Other pulmonary embolism without acute cor pulmonale Status: Acute Assessment and Plan: CTA chest 02/08 demonstrated a small filling defect in left lower lobe, age indeterminate PE and repeat 02/19 shows no change Dopplers 02/07 show no DVT PETROS legs. Continue Eliquis. Repeat CTA chest in 3-6 months is recommended. (7) Transaminitis: Code(s): R74.01 - Elevation of levels of liver transaminase levels Status: Acute Assessment and Plan: Suspect may be related to viral illness with COVID. Hepatitis panel negative as was RUQ ultrasound. Recommend repeat LFTs in 2 weeks outpatient, previous provider spoke with PCP regarding this. (8) COVID-19 virus infection: Code(s): U07.1 - COVID-19 Status: Acute Assessment and Plan: Symptoms started 01/28/21. COVID positive 01/30/21 Received treatment with Remdesivir and dexamethasone during last admission. Day of last discharge 02/16/21 she required 1L/min O2 at rest and 3L/min with activity and sleep. Now on 3L/min today. On Eliquis for PE. No longer in need of isolat
[2021-02-23] MEDS: SALINE 0.65% NAS SOLN 44 ML BTL 1 SPRAY NASAL (17:55)
[2021-02-23 18:19] LABS: Glucose Point of Care 114 (65-105)
[2021-02-23] MEDS: SENNOSIDES 8.6 MG TABLET PO (21:28)
[2021-02-23 21:41] LABS: Glucose Point of Care 154 (65-105)
[2021-02-24] VITALS (10 sets, daily range): BP systolic 107–125; BP diastolic 53–59; PULSE 78–100; RESP 18–20; TEMP 36.6–37.1; O2SAT 91–95
[2021-02-24 06:29] LABS: Basophils Absolute Auto 0.1 K/mm3 (0.0-0.1); Eosinophils Absolute Auto 0.2 K/mm3 (0-0.3); Eosinophils Percent Auto 2.1 % (0-4.4); Hematocrit 32.2 % (37.0-47.0); Hemoglobin 10.4 g/dL (12.0-15.0); Immature Granulocyte Absolute 0.91 K/mm3 (0.00-0.031); Immature Granulocyte Percent A 9.7 % (0-0.5); Lymphocytes Absolute Auto 0.96 K/mm3 (0.9-3.2); Lymphocytes Percent Auto 10.2 % (18.3-44.2); Mean Corpuscular HGB Conc 32.3 g/dl (32-36); Mean Corpuscular Hemoglobin 29.5 pg (26-34); Mean Corpuscular Volume 91.5 fl (80-100); Mean Platelet Volume 10.4 fl (7.4-10.4); Monocytes Absolute Auto 0.8 K/mm3 (0.1-0.6); Monocytes Percent Auto 8.1 % (2.6-8.5); Neutrophils Absolute Auto 6.5 K/mm3 (1.3-6.7); Neutrophils Percent Auto 68.9 % (45.5-73.1); Nucleated Red Blood Cells Perc 0.2 % (0.0-0.2); Platelet Count Result 149 k/mm3 (150-375); Red Blood Count 3.52 M/mm3 (4.2-5.4); Red Cell Distribution Width 14.5 % (11.5-14.5); White Blood Count 9.4 K/mm3 (4.5-10.0)
[2021-02-24 06:44] LABS: Alanine Aminotransferase 173 U/L (4-35); Albumin Level 2.5 g/dL (3.5-5.1); Alkaline Phosphatase 201 U/L (38-126); Anion Gap 3 mmol/L (8-16); Aspartate Amino Transferase 81 U/L (14-36); Bilirubin,Total 0.4 mg/dL (0.2-1.3); Blood Urea Nitrogen 15 mg/dL (7-17); Calcium 8.1 mg/dL (8.4-10.2); Carbon Dioxide 28 mmol/L (22-30); Chloride 107 mmol/L (98-107); Estimated CRCL calculation 44 ml/min; Estimated Glomerular Filt Rate 40; Glucose 130 mg/dL (65-105); Magnesium 1.8 mg/dL (1.6-2.3); Potassium 3.3 mmol/L (3.4-5.0); Sodium 138 mmol/L (137-145)
[2021-02-24] MEDS: ACETAMINOPHEN 325 MG TABLET 650 MG PO ×2 (07:49→15:53)
[2021-02-24 08:19] LABS: Glucose Point of Care 126 (65-105)
[2021-02-24] MEDS: POTASSIUM CHLORIDE 20 MEQ PACKET (FOR LIQUID) 40 MEQ PO (09:32)
[2021-02-24] MEDS: UMECLIDINIUM/VILANTEROL 62.5-25 MCG ELLIPTA 1 PUFF INHALATION (09:33)
[2021-02-24] MEDS: VITAMIN B COMPLEX CAPSULE 1 CAP PO (09:33)
[2021-02-24] MEDS: MAGNESIUM OXIDE 200 MG TABLET PO ×2 (09:33→20:07)
[2021-02-24] MEDS: APIXABAN 5 MG TABLET PO ×2 (09:33→20:07)
[2021-02-24] MEDS: PANTOPRAZOLE 40 MG TABLET PO (09:34)
[2021-02-24] MEDS: METOPROLOL SUCCINATE EXT REL 25 MG TABCR PO (09:34)
[2021-02-24] MEDS: CALCIUM CARBONATE (OSCAL) 500 MG TABLET PO (09:34)
[2021-02-24] MEDS: ASPIRIN 81 MG ENTERIC TABLET PO (09:34)
[2021-02-24 11:52] LABS: Glucose Point of Care 113 (65-105)
--- NOTE | 2021-02-24 12:10 | P.PNIM_ITS ---
Progress Note: A&P Assessment and Plan (1) Sepsis: Code(s): A41.9 - Sepsis, unspecified organism Status: Acute Assessment and Plan: * Sepsis noted 02/18 when the patient had sustained tachycardia in the 150s and leukocytosis. * She was started on vanc + zosyn for possible secondary bacterial respiratory infection (day 7 of 7). * CTA 02/19 revealed worsening pneumonia which may represent a secondary bacterial infection superimposed on COVID pneumonia. * Blood cultures negative. Monitor vital signs. Overall improving. (2) Pneumonia: Code(s): J18.9 - Pneumonia, unspecified organism Status: Acute Assessment and Plan: * Patient has received treatment for COVID pneumonia which is now worsening as evidenced by repeat CT 02/19. This may represent bacterial pneumonia superimposed on her known COVID thus we will continue empiric antibiotic therapy with vancomycin and Zosyn. (3) Chest pain: Code(s): R07.9 - Chest pain, unspecified Status: Acute Assessment and Plan: * None today. Atypical chest pain, likely due to worsened PNA. Appears pleuritic; troponins negative x3. CP reproducible on exam. ACS not suspected. * Appreciate cardiology input. (4) Fall: Qualifiers: Encounter type: initial encounter Qualified Code(s): W19.XXXA - Unspecified fall, initial encounter Code(s): W19.XXXA - Unspecified fall, initial encounter Status: Acute Assessment and Plan: * Continue PT/OT. Endurance is low. Dispo is SNF. (5) Generalized weakness: Code(s): R53.1 - Weakness Status: Acute Assessment and Plan: * Continue PT and OT. Likely due to prolonged hospitalization and COVID-19 (6) Pulmonary embolism: Qualifiers: Pulmonary embolism type: unspecified Chronicity: unspecified Acute cor pulmonale presence: unspecified Qualified Code(s): I26.99 - Other pulmonary embolism without acute cor pulmonale Code(s): I26.99 - Other pulmonary embolism without acute cor pulmonale Status: Acute Assessment and Plan: * CTA chest 02/08 demonstrated a small filling defect in left lower lobe, age indeterminate PE and repeat 02/19 shows no change * Dopplers 02/07 show no DVT PETROS legs. * Continue Eliquis. Repeat CTA chest in 3-6 months is recommended. (7) Transaminitis: Code(s): R74.01 - Elevation of levels of liver transaminase levels Status: Acute Assessment and Plan: * Suspect may be related to viral illness with COVID. * Hepatitis panel negative as was RUQ ultrasound. * Recommend repeat LFTs in 2 weeks outpatient, previous provider spoke with PCP regarding this. (8) COVID-19 virus infection: Code(s): U07.1 - COVID-19 Status: Acute Assessment and Plan: * Symptoms started 01/28/21. COVID positive 01/30/21 * Received treatment with Remdesivir and dexamethasone during last admission. * Day of last discharge 02/16/21 she required 1L/min O2 at rest and 3L/min with activity and sleep. Now on 3L/min today. * On Eliquis for PE. * No longer in need of isolation (9) Hemoglobin A1c less than 7.0%: Code(s): R73.09 - Other abnormal glucose Status: Acute Assessment and Plan: * Hemoglobin A1c 6.
--- NOTE | 2021-02-24 12:10 | PM.IMPN ---
Progress Note: A&P Assessment and Plan (1) Sepsis: Code(s): A41.9 - Sepsis, unspecified organism Status: Acute Assessment and Plan: Sepsis noted 02/18 when the patient had sustained tachycardia in the 150s and leukocytosis. She was started on vanc + zosyn for possible secondary bacterial respiratory infection (day 7 of 7). CTA 02/19 revealed worsening pneumonia which may represent a secondary bacterial infection superimposed on COVID pneumonia. Blood cultures negative. Monitor vital signs. Overall improving. (2) Pneumonia: Code(s): J18.9 - Pneumonia, unspecified organism Status: Acute Assessment and Plan: Patient has received treatment for COVID pneumonia which is now worsening as evidenced by repeat CT 02/19. This may represent bacterial pneumonia superimposed on her known COVID thus we will continue empiric antibiotic therapy with vancomycin and Zosyn. (3) Chest pain: Code(s): R07.9 - Chest pain, unspecified Status: Acute Assessment and Plan: None today. Atypical chest pain, likely due to worsened PNA. Appears pleuritic; troponins negative x3. CP reproducible on exam. ACS not suspected. Appreciate cardiology input. (4) Fall: Qualifiers: Encounter type: initial encounter Qualified Code(s): W19.XXXA - Unspecified fall, initial encounter Code(s): W19.XXXA - Unspecified fall, initial encounter Status: Acute Assessment and Plan: Continue PT/OT. Endurance is low. Dispo is SNF. (5) Generalized weakness: Code(s): R53.1 - Weakness Status: Acute Assessment and Plan: Continue PT and OT. Likely due to prolonged hospitalization and COVID-19 (6) Pulmonary embolism: Qualifiers: Pulmonary embolism type: unspecified Chronicity: unspecified Acute cor pulmonale presence: unspecified Qualified Code(s): I26.99 - Other pulmonary embolism without acute cor pulmonale Code(s): I26.99 - Other pulmonary embolism without acute cor pulmonale Status: Acute Assessment and Plan: CTA chest 02/08 demonstrated a small filling defect in left lower lobe, age indeterminate PE and repeat 02/19 shows no change Dopplers 02/07 show no DVT PETROS legs. Continue Eliquis. Repeat CTA chest in 3-6 months is recommended. (7) Transaminitis: Code(s): R74.01 - Elevation of levels of liver transaminase levels Status: Acute Assessment and Plan: Suspect may be related to viral illness with COVID. Hepatitis panel negative as was RUQ ultrasound. Recommend repeat LFTs in 2 weeks outpatient, previous provider spoke with PCP regarding this. (8) COVID-19 virus infection: Code(s): U07.1 - COVID-19 Status: Acute Assessment and Plan: Symptoms started 01/28/21. COVID positive 01/30/21 Received treatment with Remdesivir and dexamethasone during last admission. Day of last discharge 02/16/21 she required 1L/min O2 at rest and 3L/min with activity and sleep. Now on 3L/min today. On Eliquis for PE. No longer in need of isolation (9) Hemoglobin A1c less than 7.0%: Code(s): R73.09 - Other abnormal glucose Status: Acute Assessment and Plan: Hemoglobin A1c 6.6%. Patient had elevated glucose while hospitalized likely due to steroids She would like to try a diabetic diet/lifestyle change before starting on medication Previous provider contacted PCPs office and they are going to follow up with this Continue to monitor with accu-cheks and adjust treatment as needed, cover with SSI. (10) Essential (primary) hype
[2021-02-24] MEDS: TOLNAFTATE 1% POWDER 45 GM BTL 1 APPLIC TOPICAL ×2 (12:34→20:07)
[2021-02-24 16:46] LABS: Glucose Point of Care 145 (65-105)
[2021-02-24] MEDS: SENNOSIDES 8.6 MG TABLET PO (20:07)
[2021-02-24] MEDS: LORazepam INJ (*CRX) 2 MG/ML VIAL 0.5 MG IV PUSH (22:26)
[2021-02-24 22:33] LABS: Glucose Point of Care 185 (65-105)
[2021-02-25] MEDS: ACETAMINOPHEN 325 MG TABLET 650 MG PO (00:07)
[2021-02-25 06:00] VITALS: BP 117/52; PULSE 76; RESP 20; TEMP 36.5; O2SAT 94
[2021-02-25 06:54] LABS: Potassium 3.4 mmol/L (3.4-5.0)
[2021-02-25 07:28] LABS: Anion Gap 3 mmol/L (8-16); Blood Urea Nitrogen 14 mg/dL (7-17); Calcium 8.2 mg/dL (8.4-10.2); Carbon Dioxide 28 mmol/L (22-30); Chloride 109 mmol/L (98-107); Estimated CRCL calculation 44 ml/min; Estimated Glomerular Filt Rate 40; Glucose 128 mg/dL (65-105); Sodium 140 mmol/L (137-145)
[2021-02-25 08:45] VITALS: O2SAT 94
[2021-02-25] MEDS: POTASSIUM CHLORIDE 20 MEQ PACKET (FOR LIQUID) PO (08:48)
[2021-02-25] MEDS: MAGNESIUM OXIDE 200 MG TABLET PO (08:48)
[2021-02-25] MEDS: VITAMIN B COMPLEX CAPSULE 1 CAP PO (08:49)
[2021-02-25] MEDS: APIXABAN 5 MG TABLET PO (08:49)
[2021-02-25] MEDS: CALCIUM CARBONATE (OSCAL) 500 MG TABLET PO (08:49)
[2021-02-25] MEDS: PANTOPRAZOLE 40 MG TABLET PO (08:49)
[2021-02-25] MEDS: UMECLIDINIUM/VILANTEROL 62.5-25 MCG ELLIPTA 1 PUFF INHALATION (08:49)
[2021-02-25] MEDS: ASPIRIN 81 MG ENTERIC TABLET PO (08:49)
[2021-02-25 08:50] VITALS: PULSE 100
[2021-02-25] MEDS: METOPROLOL SUCCINATE EXT REL 25 MG TABCR PO (08:50)
[2021-02-25] MEDS: TOLNAFTATE 1% POWDER 45 GM BTL 1 APPLIC TOPICAL (08:54)
[2021-02-25 08:57] LABS: Glucose Point of Care 117 (65-105)
[2021-02-25 10:07] VITALS: O2SAT 92
[2021-02-25 13:18] LABS: Glucose Point of Care 82 (65-105)
--- NOTE | 2021-02-25 13:39 | PM.DS ---
DS: Admitting Diagnosis Admitting Diagnosis Admitting Diagnosis: generalized weakness DS: Discharge Diagnosis Discharge Diagnosis (1) Sepsis: Code(s): A41.9 - Sepsis, unspecified organism Status: Acute Assessment and Plan: Date of Admission 02/16/21 Date of Discharge 02/25/21 Ms. Garcia is a 70yo F with history of hypertension and recent hospitalization for COVID-19 pneumonia presented back to the ER same day of hospital discharge when she was too weak to step up onto the stairs outside her house and fell to her knees. She was last discharged with home oxygen 1L at rest, 3L with activity and at bedtime. She continued with generalized weakness. She was recently diagnosed with PE during last hospitalization and was continued on Eliquis for same. Imaging on arrival demonstrated worsening pneumonia and with a new leukocytosis this was concerning for a secondary bacterial pneumonia, thus she was treated with IV vancomycin and zoysn. Blood cultures negative. She continued to work with PT/OT. Days prior to discharge she was feeling a bit stronger. Family meeting was held in the days prior to arrival to discuss possible palliative/hospice care per the patient's request. Ultimately, in the following days she was feeling improved and motivated to go to SNF for continued therapy prior to returning home. She was educated on hospice and palliative care services should she wish to utilize them in the future. She was using 3L/min supplemental O2 at all times in the days prior to discharge to SNF, and supplemental O2 will be weaned as tolerated at SNF as appropriate. Patient and family were comfortable with discharge plan. She was hemodynamically stable for discharge to [facility] on 02/25/21. Sepsis noted 02/18 when the patient had sustained tachycardia in the 150s and leukocytosis. She was started on vanc + zosyn for possible secondary bacterial respiratory infection and completed 7-day course of both. (2) Pneumonia: Code(s): J18.9 - Pneumonia, unspecified organism Status: Acute Assessment and Plan: Patient has received treatment for COVID pneumonia which is now worsening as evidenced by repeat CT 02/19. This may represent bacterial pneumonia superimposed on her known COVID. See above. (3) Chest pain: Code(s): R07.9 - Chest pain, unspecified Status: Acute Assessment and Plan: None today. Atypical chest pain, likely due to worsened PNA. Appears pleuritic; troponins negative x3. She was evaluated by cardiology - ACS not suspected. (4) Fall: Qualifiers: Encounter type: initial encounter Qualified Code(s): W19.XXXA - Unspecified fall, initial encounter Code(s): W19.XXXA - Unspecified fall, initial encounter Status: Acute Assessment and Plan: Continue PT/OT. Endurance is low. Discharge to SNF. (5) Generalized weakness: Code(s): R53.1 - Weakness Status: Acute Assessment and Plan: Continue PT and OT. Likely due to prolonged hospitalization and COVID-19 (6) Pulmonary embolism: Qualifiers: Pulmonary embolism type: unspecified Chronicity: unspecified Acute cor pulmonale presence: unspecified Qualified Code(s): I26.99 - Other pulmonary embolism without acute cor pulmonale Code(s): I26.99 - Other pulmonary embolism without acute cor pulmonale Status: Acute Assessment and Plan: CTA chest 02/08 demonstrated a small filling defect in left lower lobe, age indeterminate PE and repeat 02/19 shows no change Dopplers 02/07 show no DVT PETROS legs. Continue Eliquis. Repeat CTA chest in 3-6 months is recommended. (7) Cassandra:
[2021-02-25 14:00] VITALS: BP 122/58; PULSE 94; RESP 20; TEMP 36.5; O2SAT 92
--- NOTE | 2021-02-25 15:34 | PC.NURSE ---
Called Quintin WILLS at [facility] and faxed oxygen orders.
== END 2021-02-25 15:15 | DRG 871 ==
LOC: ANHED 19:06 → ANH3MEDSUR 20:49 → ANHIMU 02-18 09:01 → ANH3MEDSUR 02-19 16:42
PROVIDERS: Physician Assistant; Admitting Provider Internal Medicine; Emergency Provider Nurse Practitioner; PCP Family Medicine; Visit Provider Internal Medicine
DX: A41.89 Other specified sepsis (principal); U07.1 COVID-19; J12.82 Pneumonia due to coronavirus disease 2019; J15.9 Unspecified bacterial pneumonia; J96.00 Acute respiratory failure, unspecified whether with hypoxia or hypercapnia; I26.99 Other pulmonary embolism without acute cor pulmonale; N17.9 Acute kidney failure, unspecified; J44.0 Chronic obstructive pulmonary disease with (acute) lower respiratory infection; M19.011 Primary osteoarthritis, right shoulder; G47.33 Obstructive sleep apnea (adult) (pediatric); M81.0 Age-related osteoporosis without current pathological fracture; I10 Essential (primary) hypertension; R00.0 Tachycardia, unspecified; E78.5 Hyperlipidemia, unspecified; K21.9 Gastro-esophageal reflux disease without esophagitis; Z96.651 Presence of right artificial knee joint; W19.XXXA Unspecified fall, initial encounter; D72.829 Elevated white blood cell count, unspecified; Z66 Do not resuscitate; Z90.710 Acquired absence of both cervix and uterus; Z90.722 Acquired absence of ovaries, bilateral; Z90.49 Acquired absence of other specified parts of digestive tract; Z87.891 Personal history of nicotine dependence; R73.09 Other abnormal glucose; Z79.01 Long term (current) use of anticoagulants
CPT/HCPCS: 36415; 36600; 51701; 71045; 71046; 71275; 73560; 80048; 80053; 80076; 80202; 81001; 82550; 82728; 82805; 82948; 83605; 83735; 84100; 84145; 84439; 84443; 84480; 84484; 85014; 85018; 85025; 85027; 86140; 87040; 93005; 94640; 96361; 96365; 96367; 96375; 97110; 97116; 97161; 97165; 97530; 97535; 99285; A9270; G0378; J1815; J2060; J2270; J2543; J3370; J7030; J7120; Q9967

== ENCOUNTER → 2022-01-09 02:23 | Outpatient (CLI) | payer MEDICARE, SELFPAY ==
[2022-01-09 16:42] LABS: SARS-CoV-2 RNA PCR Negative
== END ==
PROVIDERS: PCP Family Medicine; Visit Provider Nurse Practitioner Family
DX: R05.9 Cough, unspecified (principal); Z20.822 Contact with and (suspected) exposure to COVID-19
CPT/HCPCS: C9803; U0003; U0005

== ENCOUNTER 2022-03-18 11:34 | Outpatient (CLI) | payer MEDICARE, SELFPAY ==
--- NOTE | ~2022-03-18 | US_ITS ---
EXAMINATION: US arterial ankle brachial ind DATE: 03/18/2022 12:17 INDICATION: Peripheral arterial disease. TECHNIQUE: Segmental pressures and plethysmographic and Doppler waveforms of the brachial and lower e xtremity arteries were obtained. COMPARISON: None. FINDINGS: Right and left brachial artery pressures of 144 mm Hg and 144 mm Hg, respectively, are concordant (no rmal difference <= 30 mmHg). The right ankle-brachial index (KIZZY) is 0.29 (normal >= 0.9-1.0). The right great toe-brachial index (TBI) could not be measured due to inability to detect arterial signal (normal >= 0.65). Arterial Dop pler waveforms are biphasic in posterior tibial artery and noisy in dorsalis pedis. The left KIZZY is 1.08. The left TBI is 0.65. Arterial Doppler waveforms are biphasic at the ankle. IMPRESSION: 1. Severely decreased right KIZZY, consistent with right-sided arterial occlusive disease. Reviewed, dictated and finalized at location B.
[2022-03-18 12:47] LABS: Uric Acid 6.1 mg/dL (2.5-7.5)
== END 2022-03-18 11:35 | disposition home or self-care (01) ==
PROVIDERS: PCP Family Medicine; Visit Provider Family Medicine
DX: M79.674 Pain in right toe(s) (principal); I73.9 Peripheral vascular disease, unspecified
CPT/HCPCS: 36415; 84550; 93922

== ENCOUNTER 2023-03-25 11:49 | Inpatient (IN) | payer MEDICARE, MEDICAID, SELFPAY ==
[2023-03-25] VITALS (22 sets, daily range): BP systolic 92–117; BP diastolic 53–67; PULSE 61–97; RESP 15–26; TEMP 35.8–37.6; O2SAT 88–97
--- NOTE | ~2023-03-25 | XR_ITS ---
EXAMINATION: XR chest 1V portable INDICATION: Shortness of breath, COVID 19 TECHNIQUE: Portable AP chest at 1207 hours COMPARISON: 02/18/2021 FINDINGS: The lungs are free of acute opacities. No pleural effusion or pneumothorax. The cardiomedia stinal silhouette is normal. Changes of right total shoulder arthroplasty are noted. IMPRESSION: 1. No acute cardiopulmonary abnormality. Reviewed, dictated and finalized at location L.
--- NOTE | 2023-03-25 11:56 | ECG_ITS ---
Measurements Intervals [place] Rate: 83 P: 48 [place]: 191 QRS: -26 QRSD: 78 T: 30 QT: 353 QTc: 415 Interpretive Statements SINUS RHYTHM BORDERLINE LEFT AXIS DEVIATION [QRS AXIS < -20] NONSPECIFIC T-WAVE ABNORMALITY CANNOT RULE OUT INFERIOR INFARCTION ABNORMAL ECG COMPARED TO ECG 02/18/2021 12:54:30 NO SIGNIFICANT CHANGES Electronically Signed On 03-25-2023 14:43:12 CDT by Kobi Trevino M.D.
--- NOTE | 2023-03-25 12:13 | ED.GENADULT ---
HPI - General Adult General Chief complaint: Upper Respiratory Infection Stated complaint: bacxk pain Time Seen by Provider: 03/25/23 12:08 History of Present Illness HPI narrative: 72 yo covid + female presents for eval of dyspnea/cough, n/v, banda and fatigue x 2 days. Related Data Home Medications Medication Instructions Recorded Confirmed gabapentin 100 mg capsule 200 mg PO QHS 03/18/22 03/28/22 prednisolone acetate 1 % eye 1 drp RIGHT EYE TID 03/18/22 03/28/22 drops,suspension Allergies Allergy/AdvReac Type Severity Reaction Status Date / Time No Known Allergies Allergy Verified 03/25/23 14:52 Review of Systems Review of Systems: CONSTITUTIONAL: Denies fever, chills, or sweats. EYES: Denies visual changes, redness, or discharge. ENT: Denies rhinorrhea, congestion, sore throat, or otalgia. CARDIOVASCULAR: Denies chest pain, palpitations, or edema. RESPIRATORY: Denies cough or dyspnea. GASTROINTESTINAL: Denies abdominal pain, nausea, vomiting, or diarrhea. GENITOURINARY: Denies dysuria or hematuria. SKIN: Denies rash or itching. MUSCULOSKELETAL: Denies back pain, joint pain, or myalgia. NEUROLOGIC: Denies headache, numbness, or weakness. PSYCHIATRIC: Denies anxiety or depression. 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 Tovar Family History Family History Mother Hypertension Cerebrovascular accident Heart murmur Father Family history of cardiovascular disease Arthritis Atrial fibrillation Diabetes mellitus Social History Social History Social History: Ms. Garcia lives at home alone in [place] and is retired from working at an accounting office. She reports some alcohol intake maybe 2 drinks per week. Former smoker 1ppd x 30 years and quit in 2003. Denies other substance use. PCP is Dr Jesus Gonzales. She describes she would wish for CPR and intubation if felt she could survive but would not wish to be on life support for an extended period, thus keeping her code status DNR. She has two children and her son, Manuel, is a fruit buyer in [place] and is her designated power of fishing reel assembler. Smoking packs per day: 1 Smoking cigarettes per day: 20.0 Years smoked: 30 Smoking pack-years: 30.00 Smoking status: Never smoker Second hand tobacco smoke exposure: No Alcohol intake: current Drinks per week: 1 Substance use: never Substance use type: does not use Living arrangements: with family Occupation/Education: retired Gender identity (if verbalized by the patient): Female Sexual Orientation (if Verbalized by the Patient): Straight or Heterosexual Spiritual care concerns: No Exam Narrative: GENERAL: Well-appearing, well-nourished, and in no acute distress. HEAD: Normocephalic, atraumatic. EYES: PERRLA and EOMI. ENT: Nares clear, no rhinorrhea or epistaxis. Mucous membranes moist. NECK: Supple. CHEST: Clear to auscultation. No respiratory distress. Hypoxia but no distress HEART: Regular rate and rhythm. No murmur heard. Normal peripheral pulses. ABDOMEN: Soft, nonten
[2023-03-25 12:23] LABS: Basophils Percent Auto 0.2 % (0.2-1.2); Hematocrit 42.9 % (37.0-47.0); Hemoglobin 13.9 g/dL (12.0-15.0); Immature Granulocyte Absolute 0.11 K/mm3 (0.00-0.031); Immature Granulocyte Percent A 0.9 % (0-0.5); Lymphocytes Absolute Auto 1.09 K/mm3 (0.9-3.2); Mean Corpuscular HGB Conc 32.4 g/dl (32-36); Mean Corpuscular Hemoglobin 29.1 pg (26-34); Mean Corpuscular Volume 89.9 fl (80-100); Mean Platelet Volume 9.6 fl (7.4-10.4); Monocytes Absolute Auto 0.6 K/mm3 (0.1-0.6); Monocytes Percent Auto 4.9 % (2.6-8.5); Neutrophils Absolute Auto 10.3 K/mm3 (1.3-6.7); Platelet Count Result 204 k/mm3 (150-375); Red Blood Count 4.77 M/mm3 (4.2-5.4); Red Cell Distribution Width 14.5 % (11.5-14.5); White Blood Count 12.2 K/mm3 (4.5-10.0)
[2023-03-25] MEDS: KETOROLAC 15 MG/ML VIAL (*BKC) IV PUSH (12:28)
[2023-03-25] MEDS: ONDANSETRON INJ 4 MG/2 ML VIAL IV PUSH (12:29)
[2023-03-25] MEDS: DEXAMETHASONE 2 MG TABLET 6 MG PO (12:29)
[2023-03-25 12:35] LABS: Alanine Aminotransferase 55 U/L (6-35); Albumin Level 3.8 g/dL (3.5-5.1); Alkaline Phosphatase 150 U/L (38-126); Anion Gap 8 mmol/L (8-16); Aspartate Amino Transferase 66 U/L (14-36); Bilirubin,Total 0.6 mg/dL (0.2-1.3); Blood Urea Nitrogen 18 mg/dL (7-17); Calcium 8.3 mg/dL (8.4-10.2); Carbon Dioxide 28 mmol/L (22-30); Chloride 101 mmol/L (98-107); Estimated CRCL calculation 72 ml/min; Estimated Glomerular Filt Rate > 60; Glucose 160 mg/dL (65-110); Sodium 137 mmol/L (137-145)
[2023-03-25 12:45] LABS: INR 1.2; Prothrombin Time 14.9 Seconds (11.1-14.7)
[2023-03-25] MEDS: REMDESIVIR 200 MG/NS 250 ML 200 MG/250 ML BAG 250 MG IVPB (12:51)
--- NOTE | 2023-03-25 16:00 | PM.IMHP ---
H&P: HPI History of Present Illness Date/Time: 03/25/23 16:00 Chief Complaint: Back pain and shortness of breath. Narrative: This is a very pleasant 72-year-old female with history of pulmonary embolism, hypertension, diet-controlled diabetes, anxiety, GERD, and peripheral arterial disease, who presented to the emergency department via EMS from [facility] for evaluation of back pain and shortness of breath. The patient provides the following history. Her [facility] has an outbreak of COVID and she and her roommate have both been sick for several days. She reports subjective fever, fatigue, generalized weakness, sore throat, headache, nonproductive cough, nausea, vomiting, loose stools, and mid back pain. This morning her SpO2 was reportedly 81% on room air and she was brought in for evaluation. On arrival to the ED she had stable vital signs and was afebrile. Pertinent labs include a WBC count of 12.2, normal electrolytes, glucose 150, and mildly elevated LFTs. Chest x-ray showed no acute cardiopulmonary abnormality. She was given a dose of remdesivir and dexamethasone in the ED and she is being admitted in this setting for further treatment. Currently her main complaint is that of an aching discomfort in her back which she attributes to the mattresses at her nursing facility and the gurney in the ED. The pain is not pleuritic and she denies that is worse with cough, movement, and deep inspiration. She states compliance with her apixaban, 5 mg b.i.d. and she does not believe that she has missed any doses. Review of Systems Review of Systems: Twelve systems were reviewed and are negative except for as per HPI. [facility] Past Medical History Medical History (Updated 03/25/23 @ 21:03 by Cora Rodriguez PA-C) Anxiety Chronic anticoagulation Chronic obstructive pulmonary disease Depression Hyperlipidemia Hypertension Obstructive sleep apnea Status post uvulopalatal for angioplasty. Osteoporosis Peripheral arterial disease Pulmonary embolism (2020) Type 2 diabetes mellitus Vision loss Surgical History Surgical History (Updated 03/25/23 @ 20:59 by Cora Rodriguez PA-C) History of hysterectomy with bilateral oophorectomy History of laparoscopic cholecystectomy History of right below knee amputation History of right knee joint replacement (05/2018) History of uvulopalatopharyngoplasty (2006) History of varicose veins Family History Family History Mother Hypertension Cerebrovascular accident Heart murmur Father Family history of cardiovascular disease Arthritis Atrial fibrillation Diabetes mellitus Social History Social History (Updated 03/25/23 @ 21:00 by Cora Rodriguez PA-C) Social History: Ms. Garcia is currently [facility]. She is retired from working at an accounting office. She reports some alcohol intake maybe 2 drinks per week. Former smoker 1ppd x 30 years and quit in 2003. Denies other substance use. PCP is Dr Jesus Gonzales. She describes she would wish for CPR and intubation if felt she could survive but would not wish to be on life support for an extended period, thus keeping her code status DNR. She has two children and her son, Manuel, is a export packer in [place] and is her designated power of collections attorney. Smoking packs per day: 1 Smoking cigarettes per day: 20.0 Years smoked: 30 Smoking pack-years: 30.00 Smoking status: Former smoker Tobacco type: cigarettes Second hand tobacco smoke exposure: No Smoking end date: 03/30/03 Alcohol intake: never Drinks per week: 1 Substance use: never Substance use type: does not use Lack of Transportation: No Lack of Food: Never True Current Housing: I Have Housing Concerned About Future Housing: No Difficulty Paying Gas/Electric Bills: No Difficulty Paying for Meds: No Currently Unemployed: No Education: High School Diploma/GED Diffi
--- NOTE | 2023-03-25 16:40 | ADMGEN ---
This patient, Mariza Garcia, was admitted to -. Patient/family oriented to hospital policies and general routines including ID bracelet, bed and alarms, visiting hours, pain management, procedures, bathroom and other care routines, personal items, smoking policy, room service/diet, and visiting hours. Information on how to activate the Rapid Response Team has been discussed. Patient/Family are encouraged to report perceived risks to care and to ask questions if they do not understand what they are told or what they should do.
[2023-03-25] MEDS: ACETAMINOPHEN 325 MG TABLET 650 MG PO (21:33)
[2023-03-25 22:10] LABS: CRP 6.9 mg/dL (<1.0); Lactate Dehydrogenase 200 U/L (120-246)
[2023-03-25 22:15] LABS: Glucose Point of Care 173 mg/dl (65-105)
[2023-03-25 22:19] LABS: D Dimer 0.77 ug/mL (<0.48)
[2023-03-25 22:54] LABS: SARS-CoV-2 RNA PCR Positive (Negative)
[2023-03-25 23:14] LABS: Procalcitonin 0.8 ng/mL
[2023-03-26] VITALS (8 sets, daily range): BP systolic 124–142; BP diastolic 52–72; PULSE 58–88; RESP 14–18; TEMP 35.8–37.1; O2SAT 92–99
[2023-03-26] MEDS: traZODone HCL 50 MG TABLET PO ×2 (00:47→21:31)
[2023-03-26] MEDS: APIXABAN 5 MG TABLET PO ×3 (00:47→16:25)
[2023-03-26] MEDS: GABAPENTIN 300 MG CAPSULE PO ×4 (00:47→16:25)
[2023-03-26 06:09] LABS: Hematocrit 44.1 % (37.0-47.0); Mean Corpuscular HGB Conc 31.7 g/dl (32-36); Mean Corpuscular Volume 91.3 fl (80-100); Mean Platelet Volume 9.6 fl (7.4-10.4); Platelet Count Result 200 k/mm3 (150-375); Red Blood Count 4.83 M/mm3 (4.2-5.4); Red Cell Distribution Width 14.4 % (11.5-14.5); White Blood Count 11.8 K/mm3 (4.5-10.0)
[2023-03-26 06:23] LABS: Alanine Aminotransferase 61 U/L (6-35); Albumin Level 3.8 g/dL (3.5-5.1); Alkaline Phosphatase 134 U/L (38-126); Anion Gap 3 mmol/L (8-16); Aspartate Amino Transferase 57 U/L (14-36); Bilirubin,Total 0.5 mg/dL (0.2-1.3); Blood Urea Nitrogen 20 mg/dL (7-17); Calcium 8.9 mg/dL (8.4-10.2); Carbon Dioxide 30 mmol/L (22-30); Chloride 107 mmol/L (98-107); Estimated CRCL calculation 72 ml/min; Estimated Glomerular Filt Rate > 60; Glucose 124 mg/dL (65-110); Magnesium 2.2 mg/dL (1.6-2.3); Sodium 140 mmol/L (137-145)
[2023-03-26 07:51] LABS: Glucose Point of Care 108 mg/dl (65-105)
[2023-03-26] MEDS: DEXAMETHASONE 2 MG TABLET 6 MG PO (08:48)
[2023-03-26] MEDS: PANTOPRAZOLE 40 MG TABLET PO (08:48)
[2023-03-26] MEDS: LOSARTAN POTASSIUM 25 MG TABLET PO (08:48)
[2023-03-26] MEDS: MAGNESIUM OXIDE 400 MG TABLET PO (08:48)
[2023-03-26] MEDS: THERAPEUTIC MULTIVITAMINS/MINERALS TAB (*BKC) 1 TABLET PO (08:48)
[2023-03-26] MEDS: ACETAMINOPHEN 325 MG TABLET 650 MG PO ×2 (08:48→16:24)
[2023-03-26] MEDS: guaiFENesin 12 HR 600 MG TABCR PO ×2 (08:48→21:31)
[2023-03-26] MEDS: busPIRone HCL 10 MG TABLET PO ×2 (08:49→16:24)
[2023-03-26] MEDS: FUROSEMIDE 40 MG TABLET PO (08:49)
[2023-03-26] MEDS: SERTRALINE HCL 50 MG TABLET PO (08:49)
[2023-03-26] MEDS: SPIRONOLACTONE 25 MG TABLET PO (08:49)
[2023-03-26] MEDS: FLUTICASONE/UMECLIDIN/VILANTER 100-62.5-25 MCG ELLIPTA 1 PUFF INHALATION (09:31)
[2023-03-26] MEDS: traMADol HCL (*CRX) 50 MG TABLET PO (10:28)
[2023-03-26] MEDS: TOLNAFTATE 1% POWDER 45 GM BTL 1 APPLIC TOPICAL ×2 (10:28→16:25)
[2023-03-26] MEDS: METOPROLOL SUCCINATE EXT REL 25 MG TABCR PO (10:29)
[2023-03-26] MEDS: REMDESIVIR 100 MG/NS 250 ML 100 MG/250 ML BAG 250 MG IVPB (10:30)
[2023-03-26 12:24] LABS: Glucose Point of Care 130 mg/dl (65-105)
--- NOTE | 2023-03-26 14:55 | WPDPN ---
Progress Note: A&P Assessment and Plan (1) Acute respiratory failure with hypoxia: Code(s): J96.01 - Acute respiratory failure with hypoxia Status: Acute Assessment and Plan: Presumably secondary to COVID. No bronchospasm on exam to suggest COPD exacerbation. Chest x-ray was remarkably clear. She does have a history of pulmonary embolism but has been on apixaban 5 mg b.i.d. since that time and she does not think she has missed a dose. May consider CTA of the chest however depending on her course. Wean oxygen as tolerated. 03/26/2023 interval history: 72-year-old female presented with cough and shortness of breath is found to have COVID-19 patient was started on dexamethasone and remdesivir, and bronchodilator patient states feeling little better compared to when she arrived not a short of breath, will continue present management and further recommendation to follow. (2) COVID: Code(s): U07.1 - COVID-19 Status: Acute Assessment and Plan: Continue remdesivir and dexamethasone. She is in isolation per protocol. (3) Elevated LFTs: Code(s): R79.89 - Other specified abnormal findings of blood chemistry Status: Acute Assessment and Plan: Likely related to COVID. Her abdominal exam is benign. (4) Type 2 diabetes mellitus: Code(s): E11.9 - Type 2 diabetes mellitus without complications Status: Acute Assessment and Plan: Random glucose is 160. Initiate sliding scale insulin, Accu-Cheks, and hypoglycemic protocol. Check A1c. (5) Chronic anticoagulation: Code(s): Z79.01 - oysterman (current) use of anticoagulants Status: Acute Assessment and Plan: Continue apixaban 5 mg b.i.d.. (6) Chronic obstructive pulmonary disease: Code(s): J44.9 - Chronic obstructive pulmonary disease, unspecified Status: Acute Assessment and Plan: No evidence of acute exacerbation on exam today. Subjective Date/time seen: 03/26/23 14:55 Back pain and shortness of breath. HPI-Narrative: This is a very pleasant 72-year-old female with history of pulmonary embolism, hypertension, diet-controlled diabetes, anxiety, GERD, and peripheral arterial disease, who presented to the emergency department via EMS from [facility] for evaluation of back pain and shortness of breath. The patient provides the following history. Her care home has an outbreak of COVID and she and her roommate have both been sick for several days. She reports subjective fever, fatigue, generalized weakness, sore throat, headache, nonproductive cough, nausea, vomiting, loose stools, and mid back pain. This morning her SpO2 was reportedly 81% on room air and she was brought in for evaluation. On arrival to the ED she had stable vital signs and was afebrile. Pertinent labs include a WBC count of 12.2, normal electrolytes, glucose 150, and mildly elevated LFTs. Chest x-ray showed no acute cardiopulmonary abnormality. She was given a dose of remdesivir and dexamethasone in the ED and she is being admitted in this setting for further treatment. Currently her main complaint is that of an aching discomfort in her back which she attributes to the mattresses at her nursing facility and the gurney in the ED. The pain is not pleuritic and she denies that is worse with cough, movement, and deep inspiration. She states compliance with her apixaban, 5 mg b.i.d. and she does not believe that she has missed any doses. 03/26/2023 interval history: 72-year-old female presented with cough and shortness of breath is found to have COVID-19 patient was started on dexamethasone and remdesivir, and bronchodilator patient states feeling little better compared to when she arrived not a short of breath, will continue present management and further recommendation to follow. Review of Systems Review of Systems: Twelve systems were reviewed and are negative except for as per HPI. Exam Narrat
--- NOTE | 2023-03-26 15:32 | PCCCNOTE ---
On 03/26/23, the student, [Emma Myers ], provided care and completed [facility] on this patient. I have reviewed the student's documentation and agree with the findings.
[2023-03-26 16:55] LABS: Glucose Point of Care 169 mg/dl (65-105)
[2023-03-26 23:06] LABS: Glucose Point of Care 127 mg/dl (65-105)
[2023-03-27] VITALS (9 sets, daily range): BP systolic 119–155; BP diastolic 58–72; PULSE 59–71; RESP 12–20; TEMP 36–37.3; O2SAT 94–97
[2023-03-27 06:36] LABS: Hematocrit 45.3 % (37.0-47.0); Hemoglobin 14.4 g/dL (12.0-15.0); Mean Corpuscular HGB Conc 31.8 g/dl (32-36); Mean Corpuscular Hemoglobin 29.1 pg (26-34); Mean Corpuscular Volume 91.7 fl (80-100); Mean Platelet Volume 9.8 fl (7.4-10.4); Platelet Count Result 224 k/mm3 (150-375); Red Blood Count 4.94 M/mm3 (4.2-5.4); Red Cell Distribution Width 14.3 % (11.5-14.5)
[2023-03-27 06:54] LABS: Alanine Aminotransferase 68 U/L (6-35); Albumin Level 3.7 g/dL (3.5-5.1); Alkaline Phosphatase 134 U/L (38-126); Anion Gap 5 mmol/L (8-16); Aspartate Amino Transferase 49 U/L (14-36); Bilirubin,Total 0.5 mg/dL (0.2-1.3); Blood Urea Nitrogen 27 mg/dL (7-17); CRP 5.3 mg/dL (<1.0); Calcium 8.8 mg/dL (8.4-10.2); Carbon Dioxide 32 mmol/L (22-30); Chloride 103 mmol/L (98-107); Estimated CRCL calculation 72 ml/min; Estimated Glomerular Filt Rate > 60; Glucose 119 mg/dL (65-110); Magnesium 2.3 mg/dL (1.6-2.3); Potassium 4.3 mmol/L (3.4-5.0); Sodium 140 mmol/L (137-145)
[2023-03-27 07:39] LABS: Glucose Point of Care 116 mg/dl (65-105)
[2023-03-27] MEDS: METOPROLOL SUCCINATE EXT REL 25 MG TABCR PO (08:58)
[2023-03-27] MEDS: guaiFENesin 12 HR 600 MG TABCR PO ×2 (08:59→20:29)
[2023-03-27] MEDS: THERAPEUTIC MULTIVITAMINS/MINERALS TAB (*BKC) 1 TABLET PO (08:59)
[2023-03-27] MEDS: ACETAMINOPHEN 325 MG TABLET 650 MG PO ×2 (08:59→17:36)
[2023-03-27] MEDS: PANTOPRAZOLE 40 MG TABLET PO (09:00)
[2023-03-27] MEDS: APIXABAN 5 MG TABLET PO ×2 (09:00→17:37)
[2023-03-27] MEDS: FUROSEMIDE 40 MG TABLET PO (09:00)
[2023-03-27] MEDS: MAGNESIUM OXIDE 400 MG TABLET PO (09:00)
[2023-03-27] MEDS: LOSARTAN POTASSIUM 25 MG TABLET PO (09:00)
[2023-03-27] MEDS: SERTRALINE HCL 50 MG TABLET PO (09:00)
[2023-03-27] MEDS: GABAPENTIN 300 MG CAPSULE PO ×3 (09:00→17:38)
[2023-03-27] MEDS: DEXAMETHASONE 2 MG TABLET 6 MG PO (09:01)
[2023-03-27] MEDS: SPIRONOLACTONE 25 MG TABLET PO (09:01)
[2023-03-27] MEDS: FLUTICASONE/UMECLIDIN/VILANTER 100-62.5-25 MCG ELLIPTA 1 PUFF INHALATION (09:01)
[2023-03-27] MEDS: busPIRone HCL 10 MG TABLET PO ×2 (09:01→17:38)
[2023-03-27] MEDS: TOLNAFTATE 1% POWDER 45 GM BTL 1 APPLIC TOPICAL ×2 (09:11→17:39)
[2023-03-27] MEDS: REMDESIVIR 100 MG/NS 250 ML 100 MG/250 ML BAG 250 MG IVPB (09:58)
[2023-03-27 11:56] LABS: Glucose Point of Care 126 mg/dl (65-105)
--- NOTE | 2023-03-27 13:45 | PM.IMPN ---
Progress Note: A&P Assessment and Plan (1) Acute respiratory failure with hypoxia: Code(s): J96.01 - Acute respiratory failure with hypoxia Status: Acute Assessment and Plan: Presumably secondary to COVID. No bronchospasm on exam to suggest COPD exacerbation. Chest x-ray was remarkably clear. She does have a history of pulmonary embolism but has been on apixaban 5 mg b.i.d. since that time and she does not think she has missed a dose. May consider CTA of the chest however depending on her course. Wean oxygen as tolerated. 03/27/2023 interval history: 72-year-old female presented with cough and shortness of breath is found to have COVID-19 patient was started on dexamethasone 2/10 and remdesivir, 2/5 and bronchodilator patient states feeling little better compared to when she arrived not a short of breath, her CRP has improved to 5.3 compare to 6.9 upon arrival, will have PT/OT evaluate the patient, will continue present management and further recommendation to follow. (2) COVID: Code(s): U07.1 - COVID-19 Status: Acute Assessment and Plan: Continue remdesivir and dexamethasone. She is in isolation per protocol. (3) Elevated LFTs: Code(s): R79.89 - Other specified abnormal findings of blood chemistry Status: Acute Assessment and Plan: Likely related to COVID. Her abdominal exam is benign. (4) Type 2 diabetes mellitus: Code(s): E11.9 - Type 2 diabetes mellitus without complications Status: Acute Assessment and Plan: Random glucose is 160. Initiate sliding scale insulin, Accu-Cheks, and hypoglycemic protocol. Check A1c. (5) Chronic anticoagulation: Code(s): Z79.01 - terminal make up operator (current) use of anticoagulants Status: Acute Assessment and Plan: Continue apixaban 5 mg b.i.d.. (6) Chronic obstructive pulmonary disease: Code(s): J44.9 - Chronic obstructive pulmonary disease, unspecified Status: Acute Assessment and Plan: No evidence of acute exacerbation on exam today. Subjective Date/time seen: 03/27/23 13:45 Presumably secondary to COVID. No bronchospasm on exam to suggest COPD exacerbation. Chest x-ray was remarkably clear. She does have a history of pulmonary embolism but has been on apixaban 5 mg b.i.d. since that time and she does not think she has missed a dose. May consider CTA of the chest however depending on her course. Wean oxygen as tolerated. 03/27/2023 interval history: 72-year-old female presented with cough and shortness of breath is found to have COVID-19 patient was started on dexamethasone 2/10 and remdesivir, 2/5 and bronchodilator patient states feeling little better compared to when she arrived not a short of breath, her CRP has improved to 5.3 compare to 6.9 upon arrival, will have PT/OT evaluate the patient, will continue present management and further recommendation to follow. Review of Systems Review of Systems: Twelve systems were reviewed and are negative except for as per HPI. Exam Narrative: Morbidly obese Patient is comfortable, NAD HEENT: eyes are clear and none icteric LUNGS: Normal respiratory effort ABD: Not distended Lower extremities: no edema SKIN: nonjaundiced Neuro: grossly intact. Objective Data Vital Signs Vital Signs: Vital Signs - 24 hr 03/26/23 13:47 03/26/23 18:06 03/26/23 20:00 Temperature 97.1 F L 98.0 F 97.2 F L Pulse Rate 73 77 63 Respiratory Rate 18 18 14 Blood Pressure 127/57 L 130/62 132/58 L Pulse Oximetry 94 93 96 Oxygen Delivery Oxygen Flow Rate 03/26/23 20:00 03/26/23 23:33 03/27/23 04:00 Temperature 97.1 F L 98.0 F Pulse Rate 58 L 65 Respiratory Rate 14 14 Blood Pressure 134/52 L 146/60 H Pulse Oximetry 94 96 95 Oxygen Delivery Nasal Cannula Oxygen Flow Rate 3 03/27/23 08:00 03/27/23 08:58 03/27/23 09:02 Temperature 97.2 F L Pulse Rate 67 71 Respiratory Rate 12 Blood Pressur
--- NOTE | 2023-03-27 13:57 | PCCCNOTE ---
On 03/27/23, the student, [Emma Myers ], provided care and [facility] patient. I have reviewed the student's documentation and agree with the findings.
[2023-03-27 16:43] LABS: Glucose Point of Care 137 mg/dl (65-105)
[2023-03-27] MEDS: traMADol HCL (*CRX) 50 MG TABLET PO (20:28)
[2023-03-27] MEDS: traZODone HCL 50 MG TABLET PO (20:29)
[2023-03-27 21:29] LABS: Glucose Point of Care 198 mg/dl (65-105)
[2023-03-28] VITALS (7 sets, daily range): BP systolic 111–156; BP diastolic 65–75; PULSE 56–86; RESP 14–16; TEMP 36.1–36.7; O2SAT 95–100
[2023-03-28] MEDS: traMADol HCL (*CRX) 50 MG TABLET PO (02:49)
[2023-03-28 06:26] LABS: Hematocrit 44.6 % (37.0-47.0); Hemoglobin 14.4 g/dL (12.0-15.0); Mean Corpuscular HGB Conc 32.3 g/dl (32-36); Mean Corpuscular Hemoglobin 28.9 pg (26-34); Mean Corpuscular Volume 89.6 fl (80-100); Mean Platelet Volume 9.4 fl (7.4-10.4); Platelet Count Result 234 k/mm3 (150-375); Red Blood Count 4.98 M/mm3 (4.2-5.4); Red Cell Distribution Width 14.2 % (11.5-14.5); White Blood Count 10.5 K/mm3 (4.5-10.0)
[2023-03-28 06:42] LABS: Alanine Aminotransferase 103 U/L (6-35); Albumin Level 3.7 g/dL (3.5-5.1); Alkaline Phosphatase 126 U/L (38-126); Anion Gap 4 mmol/L (8-16); Aspartate Amino Transferase 75 U/L (14-36); Bilirubin,Total 0.6 mg/dL (0.2-1.3); Blood Urea Nitrogen 30 mg/dL (7-17); CRP 2.7 mg/dL (<1.0); Calcium 8.6 mg/dL (8.4-10.2); Carbon Dioxide 31 mmol/L (22-30); Chloride 102 mmol/L (98-107); Estimated CRCL calculation 72 ml/min; Estimated Glomerular Filt Rate > 60; Glucose 143 mg/dL (65-110); Magnesium 2.3 mg/dL (1.6-2.3); Potassium 3.9 mmol/L (3.4-5.0); Sodium 137 mmol/L (137-145)
[2023-03-28 07:44] LABS: Glucose Point of Care 126 mg/dl (65-105)
[2023-03-28] MEDS: FLUTICASONE/UMECLIDIN/VILANTER 100-62.5-25 MCG ELLIPTA 1 PUFF INHALATION (09:03)
[2023-03-28] MEDS: SERTRALINE HCL 50 MG TABLET PO (09:06)
[2023-03-28] MEDS: busPIRone HCL 10 MG TABLET PO ×2 (09:06→17:02)
[2023-03-28] MEDS: THERAPEUTIC MULTIVITAMINS/MINERALS TAB (*BKC) 1 TABLET PO (09:07)
[2023-03-28] MEDS: ACETAMINOPHEN 325 MG TABLET 650 MG PO ×2 (09:07→17:02)
[2023-03-28] MEDS: GABAPENTIN 300 MG CAPSULE PO ×3 (09:07→17:02)
[2023-03-28] MEDS: PANTOPRAZOLE 40 MG TABLET PO (09:07)
[2023-03-28] MEDS: DEXAMETHASONE 2 MG TABLET 6 MG PO (09:07)
[2023-03-28] MEDS: FUROSEMIDE 40 MG TABLET PO (09:08)
[2023-03-28] MEDS: LOSARTAN POTASSIUM 25 MG TABLET PO (09:08)
[2023-03-28] MEDS: MAGNESIUM OXIDE 400 MG TABLET PO (09:09)
[2023-03-28] MEDS: METOPROLOL SUCCINATE EXT REL 25 MG TABCR PO (09:09)
[2023-03-28] MEDS: SPIRONOLACTONE 25 MG TABLET PO (09:13)
[2023-03-28] MEDS: guaiFENesin 12 HR 600 MG TABCR PO ×2 (09:13→21:08)
[2023-03-28] MEDS: APIXABAN 5 MG TABLET PO ×2 (09:13→17:02)
[2023-03-28] MEDS: TOLNAFTATE 1% POWDER 45 GM BTL 1 APPLIC TOPICAL ×2 (09:20→17:04)
[2023-03-28] MEDS: REMDESIVIR 100 MG/NS 250 ML 100 MG/250 ML BAG 250 MG IVPB (10:40)
[2023-03-28 11:42] LABS: Glucose Point of Care 223 mg/dl (65-105)
[2023-03-28] MEDS: INSULIN ASPART (*BKC) 100 UNITS/ML SUB-Q (12:10)
[2023-03-28 16:58] LABS: Glucose Point of Care 143 mg/dl (65-105)
--- NOTE | 2023-03-28 17:23 | PM.IMPN ---
Progress Note: A&P Assessment and Plan (1) Acute respiratory failure with hypoxia: Code(s): J96.01 - Acute respiratory failure with hypoxia Status: Acute Assessment and Plan: Presumably secondary to COVID. No bronchospasm on exam to suggest COPD exacerbation. Chest x-ray was remarkably clear. She does have a history of pulmonary embolism but has been on apixaban 5 mg b.i.d. since that time and she does not think she has missed a dose. May consider CTA of the chest however depending on her course. Wean oxygen as tolerated. 03/28/2023 interval history: 72-year-old female presented with cough and shortness of breath is found to have COVID-19 patient was started on dexamethasone 3/10 and remdesivir, 3/5 and bronchodilator patient states feeling little better compared to when she arrived not a short of breath, her CRP has improved to 2.7 compare to 6.9 upon arrival, today patient work with physical therapy was able to ambulate without any oxygen currently on room air, will continue present management and further recommendation to follow. (2) COVID: Code(s): U07.1 - COVID-19 Status: Acute Assessment and Plan: Continue remdesivir and dexamethasone. She is in isolation per protocol. (3) Elevated LFTs: Code(s): R79.89 - Other specified abnormal findings of blood chemistry Status: Acute Assessment and Plan: Likely related to COVID. Her abdominal exam is benign. (4) Type 2 diabetes mellitus: Code(s): E11.9 - Type 2 diabetes mellitus without complications Status: Acute Assessment and Plan: Random glucose is 160. Initiate sliding scale insulin, Accu-Cheks, and hypoglycemic protocol. Check A1c. (5) Chronic anticoagulation: Code(s): Z79.01 - USP (current) use of anticoagulants Status: Acute Assessment and Plan: Continue apixaban 5 mg b.i.d.. (6) Chronic obstructive pulmonary disease: Code(s): J44.9 - Chronic obstructive pulmonary disease, unspecified Status: Acute Assessment and Plan: No evidence of acute exacerbation on exam today. Subjective Date/time seen: 03/28/23 17:23 Interval history: Presumably secondary to COVID. No bronchospasm on exam to suggest COPD exacerbation. Chest x-ray was remarkably clear. She does have a history of pulmonary embolism but has been on apixaban 5 mg b.i.d. since that time and she does not think she has missed a dose. May consider CTA of the chest however depending on her course. Wean oxygen as tolerated. 03/28/2023 interval history: 72-year-old female presented with cough and shortness of breath is found to have COVID-19 patient was started on dexamethasone 3/10 and remdesivir, 3/5 and bronchodilator patient states feeling little better compared to when she arrived not a short of breath, her CRP has improved to 2.7 compare to 6.9 upon arrival, today patient work with physical therapy was able to ambulate without any oxygen currently on room air, will continue present management and further recommendation to follow. Review of Systems Review of Systems: Twelve systems were reviewed and are negative except for as per HPI. Exam Narrative: Morbidly obese Patient is comfortable, NAD HEENT: eyes are clear and none icteric LUNGS: Normal respiratory effort ABD: Not distended Lower extremities: no edema SKIN: nonjaundiced Neuro: grossly intact. Objective Data Vital Signs Vital Signs: Vital Signs - 24 hr 03/27/23 20:00 03/27/23 23:57 03/27/23 20:00 Temperature 99.1 F 97.2 F L Pulse Rate 68 59 L Respiratory Rate 14 14 Blood Pressure 139/58 L 128/64 Pulse Oximetry 94 97 94 Oxygen Delivery Nasal Cannula Oxygen Flow Rate 2 03/28/23 04:00 03/28/23 08:00 03/28/23 08:55 Temperature 98.0 F 96.9 F L Pulse Rate 56 L 56 L Respiratory Rate 14 14 Blood Pressure 156/71 H 137/65 Pulse Oximetry 96 95 Oxygen Delivery Nasal Cannula
[2023-03-28 20:43] LABS: Glucose Point of Care 265 mg/dl (65-105)
[2023-03-28] MEDS: traZODone HCL 50 MG TABLET PO (21:08)
[2023-03-29 04:00] VITALS: BP 154/72; PULSE 76; RESP 14; TEMP 36.3; O2SAT 98
[2023-03-29 05:59] LABS: Hematocrit 46.9 % (37.0-47.0); Hemoglobin 14.8 g/dL (12.0-15.0); Mean Corpuscular HGB Conc 31.6 g/dl (32-36); Mean Corpuscular Hemoglobin 28.5 pg (26-34); Mean Corpuscular Volume 90.2 fl (80-100); Mean Platelet Volume 9.5 fl (7.4-10.4); Platelet Count Result 256 k/mm3 (150-375); White Blood Count 11.2 K/mm3 (4.5-10.0)
[2023-03-29 06:13] LABS: Alanine Aminotransferase 134 U/L (6-35); Albumin Level 3.7 g/dL (3.5-5.1); Alkaline Phosphatase 123 U/L (38-126); Anion Gap 5 mmol/L (8-16); Aspartate Amino Transferase 69 U/L (14-36); Bilirubin,Total 0.7 mg/dL (0.2-1.3); Blood Urea Nitrogen 28 mg/dL (7-17); CRP 1.5 mg/dL (<1.0); Calcium 8.6 mg/dL (8.4-10.2); Carbon Dioxide 30 mmol/L (22-30); Chloride 102 mmol/L (98-107); Estimated CRCL calculation 64 ml/min; Estimated Glomerular Filt Rate > 60; Glucose 118 mg/dL (65-110); Magnesium 2.3 mg/dL (1.6-2.3); Potassium 4.2 mmol/L (3.4-5.0); Sodium 137 mmol/L (137-145)
[2023-03-29 08:00] VITALS: BP 142/73; PULSE 75; RESP 20; TEMP 36.1; O2SAT 98
[2023-03-29] MEDS: ACETAMINOPHEN 325 MG TABLET 650 MG PO (08:54)
[2023-03-29] MEDS: THERAPEUTIC MULTIVITAMINS/MINERALS TAB (*BKC) 1 TABLET PO (08:54)
[2023-03-29] MEDS: DEXAMETHASONE 2 MG TABLET 6 MG PO (08:54)
[2023-03-29 08:55] VITALS: PULSE 77
[2023-03-29] MEDS: SPIRONOLACTONE 25 MG TABLET PO (08:55)
[2023-03-29] MEDS: GABAPENTIN 300 MG CAPSULE PO ×2 (08:55→14:32)
[2023-03-29] MEDS: MAGNESIUM OXIDE 400 MG TABLET PO (08:55)
[2023-03-29] MEDS: FUROSEMIDE 40 MG TABLET PO (08:55)
[2023-03-29] MEDS: METOPROLOL SUCCINATE EXT REL 25 MG TABCR PO (08:55)
[2023-03-29] MEDS: SERTRALINE HCL 50 MG TABLET PO (08:55)
[2023-03-29] MEDS: LOSARTAN POTASSIUM 25 MG TABLET PO (08:55)
[2023-03-29] MEDS: guaiFENesin 12 HR 600 MG TABCR PO (08:56)
[2023-03-29] MEDS: PANTOPRAZOLE 40 MG TABLET PO (08:56)
[2023-03-29] MEDS: busPIRone HCL 10 MG TABLET PO (08:56)
[2023-03-29] MEDS: APIXABAN 5 MG TABLET PO (08:56)
[2023-03-29] MEDS: REMDESIVIR 100 MG/NS 250 ML 100 MG/250 ML BAG 250 MG IVPB (09:34)
[2023-03-29] MEDS: TOLNAFTATE 1% POWDER 45 GM BTL 1 APPLIC TOPICAL (09:37)
[2023-03-29] MEDS: FLUTICASONE/UMECLIDIN/VILANTER 100-62.5-25 MCG ELLIPTA 1 PUFF INHALATION (10:23)
[2023-03-29 11:37] LABS: Glucose Point of Care 111 mg/dl (65-105)
[2023-03-29 11:38] LABS: Glucose Point of Care 146 mg/dl (65-105)
[2023-03-29 11:47] VITALS: BP 144/67; PULSE 93; RESP 20; TEMP 36.2; O2SAT 98
--- NOTE | 2023-03-29 12:48 | PM.DS ---
DS: Admitting Diagnosis Discharge Date 03/29/2023 Admitting Diagnosis Back pain and shortness of breath. DS: Discharge Diagnosis Discharge Diagnosis (1) Acute respiratory failure with hypoxia: Code(s): J96.01 - Acute respiratory failure with hypoxia Status: Acute Assessment and Plan: Presumably secondary to COVID. No bronchospasm on exam to suggest COPD exacerbation. Chest x-ray was remarkably clear. She does have a history of pulmonary embolism but has been on apixaban 5 mg b.i.d. since that time and she does not think she has missed a dose. May consider CTA of the chest however depending on her course. Wean oxygen as tolerated. 03/28/2023 interval history: 72-year-old female presented with cough and shortness of breath is found to have COVID-19 patient was started on dexamethasone /10 and remdesivir, 3/5 and bronchodilator patient states feeling little better compared to when she arrived not a short of breath, her CRP has improved to 2.7 compare to 6.9 upon arrival, today patient work with physical therapy was able to ambulate without any oxygen currently on room air, will continue present management and further recommendation to follow. (2) COVID: Code(s): U07.1 - COVID-19 Status: Acute Assessment and Plan: Continue remdesivir and dexamethasone. She is in isolation per protocol. (3) Elevated LFTs: Code(s): R79.89 - Other specified abnormal findings of blood chemistry Status: Acute Assessment and Plan: Likely related to COVID. Her abdominal exam is benign. (4) Type 2 diabetes mellitus: Code(s): E11.9 - Type 2 diabetes mellitus without complications Status: Acute Assessment and Plan: Random glucose is 160. Initiate sliding scale insulin, Accu-Cheks, and hypoglycemic protocol. Check A1c. 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 (6) Chronic obstructive pulmonary disease: Code(s): J44.9 - Chronic obstructive pulmonary disease, unspecified Status: Acute Assessment and Plan: No evidence of acute exacerbation on exam today. DS: Summary Hospital Course Reason for hospitalization: Back pain and shortness of breath. Narrative: This is a very pleasant 72-year-old female with history of pulmonary embolism, hypertension, diet-controlled diabetes, anxiety, GERD, and peripheral arterial disease, who presented to the emergency department via EMS from [facility] for evaluation of back pain and shortness of breath. The patient provides the following history. Her long term has an outbreak of COVID and she and her roommate have both been sick for several days. She reports subjective fever, fatigue, generalized weakness, sore throat, headache, nonproductive cough, nausea, vomiting, loose stools, and mid back pain. This morning her SpO2 was reportedly 81% on room air and she was brought in for evaluation. On arrival to the ED she had stable vital signs and was afebrile. Pertinent labs include a WBC count of 12.2, normal electrolytes, glucose 150, and mildly elevated LFTs. Chest x-ray showed no acute cardiopulmonary abnormality. She was given a dose of remdesivir and dexamethasone in the ED and she is being admitted in this setting for further treatment. Currently her main complaint is that of an aching discomfort in her back which she attributes to the mattresses at her nursing facility and the gurney in the ED. The pain is not pleuritic and she denies that is worse with cough, movement, and deep inspiration. She states compliance with her apixaban, 5 mg b.i.d. and she does not believe that she has missed any doses. Hospital Course: Presumably secondary to COVID. No bronchospasm on exam to suggest COPD exacerbation. Chest x-ray was remarkably clear. She does have a history of pulmonary embolis
== END 2023-03-29 15:50 | DRG 177 ==
LOC: ANHED 14:55 → ANH3MEDSUR 16:41
PROVIDERS: Emergency Medicine; Physician Assistant; Admitting Provider Chiropractor; Emergency Provider Emergency Medicine; PCP Internal Medicine; Visit Provider Family Medicine
DX: U07.1 COVID-19 (principal); J96.01 Acute respiratory failure with hypoxia; Z68.41 Body mass index [BMI] 40.0-44.9, adult; E11.9 Type 2 diabetes mellitus without complications; J44.9 Chronic obstructive pulmonary disease, unspecified; I10 Essential (primary) hypertension; F41.9 Anxiety disorder, unspecified; K21.9 Gastro-esophageal reflux disease without esophagitis; E66.01 Morbid (severe) obesity due to excess calories; Z86.711 Personal history of pulmonary embolism; Z79.01 Long term (current) use of anticoagulants; Z79.899 Other long term (current) drug therapy
CPT/HCPCS: 36415; 71045; 80053; 82728; 82948; 83036; 83615; 83735; 84145; 85025; 85027; 85380; 85610; 86140; 93005; 94640; 96365; 96375; 97116; 97162; 97165; 97530; 99285; A9270; J0248; J1815; J1885; J2405; J8540; U0003; U0005

== ENCOUNTER 2023-07-30 17:09 | Emergency (ER) | payer MEDICARE, SELFPAY ==
[2023-07-30] VITALS (7 sets, daily range): BP systolic 115–127; BP diastolic 51–63; PULSE 73–88; RESP 15–25; TEMP 36.3; O2SAT 85–100
--- NOTE | ~2023-07-30 | XR_ITS ---
EXAM: [id number] DATE: 07/30/2023 18:18 HISTORY: Cellulitis, right below-knee amputation . COMPARISON: 02/17/2021. FINDINGS: Uncomplicated appearing right total knee arthroplasty. Superficial femoral artery stent. S urgical clips in the medial soft tissues. Decreased mineralization. Vascular calcifications. No fract ure or dislocation. No significant knee joint effusion. Subtle osseous erosion along the medial aspec t of the proximal tibia, approximately 6 cm distal to the medial tibial plateau, with irregular perio steal elevation. No soft tissue foreign body or subcutaneous emphysema. IMPRESSION: Findings concerning for osteomyelitis involving a focal area along the medial aspect of t he proximal tibia. Consider MR without and with contrast for further evaluation. Reviewed, dictated and finalized at location K. IMPRESSION: Findings concerning for osteomyelitis involving a focal area along the medial aspect of the proximal tibia. Consider MR without and with contrast for further evaluation.
--- NOTE | 2023-07-30 17:51 | ED.GENADULT ---
HPI - General Adult General Chief complaint: Wound/Laceration Stated complaint: wound above prosthesis Time Seen by Provider: 07/30/23 17:55 Source: patient Mode of arrival: ambulatory Limitations: no limitations History of Present Illness HPI narrative: 73 years old white female came to the emergency room complaining of pain and redness of the right thigh anteriorly started 3 days ago. Patient is status post right below-knee amputation May 2022. She denies any fever, chills, nausea, vomiting. History of hypertension, hyperlipidemia currently on Eliquis. She denies smoking or using drugs, drinks occasionally. Patient came from assisted living. Patient had knee replacement at [facility] 6 years ago, . Patient had left below-knee amputation at [facility], Dr. Chew Related Data Home Medications Medication Instructions Recorded Confirmed gabapentin 100 mg capsule 300 mg PO TID 03/18/22 03/25/23 acetaminophen 325 mg tablet 650 mg PO BID 03/25/23 03/25/23 (Tylenol) buspirone 10 mg tablet 10 mg PO BID 03/25/23 03/25/23 fluticasone fur. 100 mcg-umeclid 1 inh inhalation DAILY 03/25/23 03/25/23 62.5 mcg-vilant 25 mcg inhalat.powder (Trelegy Ellipta) furosemide 40 mg tablet 40 mg PO DAILY 03/25/23 03/25/23 guaifenesin 600 mg tablet, 600 mg PO BID 03/25/23 03/25/23 extended release 12 hr losartan 25 mg tablet 25 mg PO DAILY 03/25/23 03/25/23 magnesium citrate (Citrate of 300 ml PO DAILY PRN Constipation 03/25/23 03/25/23 Magnesia oral) magnesium hydroxide 400 mg/5 mL 30 ml PO HS PRN Constipation 03/25/23 03/25/23 oral suspension (Milk of Magnesia) magnesium oxide 400 mg PO DAILY 03/25/23 03/25/23 melatonin 10 mg tablet 10 mg PO HS PRN Constipation 03/25/23 03/25/23 metoprolol succinate 25 mg 25 mg PO BID 03/25/23 03/25/23 tablet,extended release 24 hr multivitamin with minerals-folic 1 tablet PO DAILY 03/25/23 03/25/23 acid 0.4 mg tablet naloxone 4 mg/actuation nasal 1 spray intranasal Q2-3M PRN 03/25/23 03/25/23 spray (Narcan) Opioid Overdose nystatin 100,000 unit/gram topical 1 applic topical BID 03/25/23 03/25/23 powder omeprazole 20 mg capsule,delayed 20 mg PO DAILY 03/25/23 03/25/23 release sertraline 50 mg tablet 50 mg PO DAILY 03/25/23 03/25/23 spironolactone 25 mg tablet 25 mg PO DAILY 03/25/23 03/25/23 trazodone 50 mg tablet 50 mg PO HS 03/25/23 03/25/23 Allergies Allergy/AdvReac Type Severity Reaction Status Date / Time heparin AdvReac Difficulty Verified 07/30/23 17:13 Breathing warfarin AdvReac Difficulty Verified 07/30/23 17:13 Breathing Review of Systems Review of Systems: All systems reviewed & are unremarkable except as noted in HPI and below PMFSH Past Medical History Medical History Anxiety Chronic anticoagulation Chronic obstructive pulmonary disease Depression Hyperlipidemia Hypertension Obstructive sleep apnea Status post uvulopalatal for angioplasty. Osteoporosis Peripheral arterial disease Pulmonary embolism (2020) Type 2 diabetes mellitus Vision loss Surgical History Surgical History History of hysterectomy with bilateral oophorectomy History of laparoscopic cholecystectomy History of right below knee amputation History of right knee joint replacement (05/2018) History of uvulopalatopharyngoplasty (2006) History of varicose veins Family History Family History Mother Hypertension Cerebrovascular accident Heart murmur Father Family history of cardiovascular disease Arthritis Atrial fibrillation Diabetes mellitus Social History Social History Social History: Ms. Garcia is currently [facility]. She is retired from working at an accounting office. She reports some alcohol intake maybe 2 drinks
[2023-07-30] MEDS: ONDANSETRON INJ 4 MG/2 ML VIAL IV PUSH (18:44)
[2023-07-30] MEDS: SODIUM CHLORIDE 0.9% IV 1,000 ML 999 ML IV CONT (18:44)
[2023-07-30] MEDS: MORPHINE SULFATE (*CRX) 4 MG/ML INJ IV PUSH (18:44)
[2023-07-30 18:52] LABS: Basophils Absolute Auto 0.1 K/mm3 (0.0-0.1); Basophils Percent Auto 0.5 % (0.2-1.2); Eosinophils Absolute Auto 0.2 K/mm3 (0-0.3); Eosinophils Percent Auto 1.5 % (0-4.4); Hematocrit 42.1 % (37.0-47.0); Hemoglobin 13.3 g/dL (12.0-15.0); Immature Granulocyte Percent A 1.9 % (0-0.5); Lymphocytes Absolute Auto 1.81 K/mm3 (0.9-3.2); Lymphocytes Percent Auto 17.4 % (18.3-44.2); Mean Corpuscular HGB Conc 31.6 g/dl (32-36); Mean Corpuscular Hemoglobin 30.2 pg (26-34); Mean Corpuscular Volume 95.5 fl (80-100); Mean Platelet Volume 9.5 fl (7.4-10.4); Monocytes Percent Auto 9.5 % (2.6-8.5); Neutrophils Absolute Auto 7.2 K/mm3 (1.3-6.7); Neutrophils Percent Auto 69.2 % (45.5-73.1); Platelet Count Result 284 k/mm3 (150-375); Red Blood Count 4.41 M/mm3 (4.2-5.4); Red Cell Distribution Width 13.4 % (11.5-14.5); White Blood Count 10.4 K/mm3 (4.5-10.0)
[2023-07-30 19:04] LABS: INR 1.1; Prothrombin Time 14.3 Seconds (11.1-14.7)
[2023-07-30 19:06] LABS: Alanine Aminotransferase 39 U/L (6-35); Albumin Level 4.2 g/dL (3.5-5.1); Alkaline Phosphatase 93 U/L (38-126); Anion Gap 8 mmol/L (8-16); Aspartate Amino Transferase 41 U/L (14-36); Bilirubin,Total 0.5 mg/dL (0.2-1.3); Blood Urea Nitrogen 15 mg/dL (7-17); CRP 3.1 mg/dL (<1.0); Calcium 8.9 mg/dL (8.4-10.2); Carbon Dioxide 29 mmol/L (22-30); Chloride 101 mmol/L (98-107); Estimated CRCL calculation 65 ml/min; Estimated Glomerular Filt Rate > 60; Glucose 87 mg/dL (65-110); Potassium 4.1 mmol/L (3.4-5.0); Sodium 138 mmol/L (137-145)
[2023-07-30] MEDS: VANCOMYCIN 1,250 MG/NS 250 ML 1,250 MG/250 ML BAG 166.67 MG IVPB (21:08)
[2023-07-30] MEDS: LORazepam INJ (*CRX) 2 MG/ML VIAL 1 MG IV PUSH (21:09)
--- NOTE | 2023-07-30 21:47 | PC.NURSE ---
Pt placed on 2L O2 at this time. pt 86-88% on room air. Pt reports history of COPD. Pt now 94% on 2L O2
--- NOTE | 2023-07-30 23:26 | P.PNCROSS_ITS ---
Event Note Event Note Event Note: Patient with the right BKA came today for evaluation because of pain and redness involving the right BKA stump extending to the right thigh. Workup was done which showed radiological evidence of possible osteomyelitis. ER physician called me to admit this patient. I saw and evaluated the patient and spoke with the orthopedic consult, Dr. Payne. We both believe that we are unable to admit this patient in the hospital because of reasons below: * We do not have vascular surgeon on-call in our hospital * We do not have infectious disease specialty in our hospital * We do not have capability to treat this patient in our hospital in a medically compliant and safe manner Both Orthopedics and I suggested to Dr. Petersen, ED physician, to transfer the patient to a higher level of with ID and vascular surgery services. He agrees with the plan, starting the patient on IV antibiotics and and is in the process of transferring patient to a medical facility with higher level of care.
[2023-07-31] VITALS (46 sets, daily range): BP systolic 113–136; BP diastolic 50–86; PULSE 73–86; RESP 13–21; O2SAT 90–100
[2023-07-31] MEDS: VANCOMYCIN 1,250 MG/NS 250 ML 1,250 MG/250 ML BAG 166.67 MG IVPB (00:04)
--- NOTE | 2023-07-31 02:50 | PC.NURSE ---
Pt updated on plan of care. Pt made aware she is waitlisted at [facility]. Pts daughter called by this RN and updated on pt condition and plan. Pt joo switched out for hospital bed at this time due to waitlist status
[2023-07-31] MEDS: PIPERACILLN/TAZ 3.375GM/NS50ML 3.375 GM/50 ML BAG IVPB ×2 (03:32→12:04)
--- NOTE | 2023-07-31 04:15 | PC.NURSE ---
This RN took patient report from CHUYITA Bhardwaj. This RN assumed care of patient.
[2023-07-31 05:36] LABS: Estimated CRCL calculation 85 ml/min; Estimated Glomerular Filt Rate > 60
[2023-07-31] MEDS: LORazepam INJ (*CRX) 2 MG/ML VIAL 1 MG IV PUSH (11:09)
[2023-07-31] MEDS: MORPHINE SULFATE (*CRX) 2 MG/ML INJ IV PUSH (14:04)
== END 2023-07-31 14:26 | disposition short-term general hospital (02) ==
PROVIDERS: Emergency Provider Emergency Medicine; PCP Family Medicine
DX: L03.115 Cellulitis of right lower limb (principal); M86.9 Osteomyelitis, unspecified; I10 Essential (primary) hypertension; E78.5 Hyperlipidemia, unspecified; J44.9 Chronic obstructive pulmonary disease, unspecified; E11.9 Type 2 diabetes mellitus without complications; Z89.511 Acquired absence of right leg below knee; Z79.01 Long term (current) use of anticoagulants; Z87.891 Personal history of nicotine dependence
CPT/HCPCS: 36415; 73560; 80053; 82565; 85025; 85610; 86140; 87040; 96361; 96365; 96366; 96367; 96375; 96376; 99285; J2060; J2270; J2405; J2543; J3370; J7030

== ENCOUNTER → 2023-12-23 13:11 | Outpatient (CLI) | payer MEDICARE, SELFPAY ==
--- NOTE | ~2023-12-23 | MR_ITS ---
EXAMINATION: MR cervical spine wo con DATE: 12/23/2023 13:51 INDICATION: Radiculopathy, cervical region. Neck pain. TECHNIQUE: Magnetic resonance imaging (MRI) of the cervical spine was performed without intravenous c ontrast. COMPARISON: Cervical spine MRI 11/14/2017 FINDINGS: There is 8 degrees dextrocurvature of cervical spine. There is 2 mm anterolisthesis of C3 o n C4, C4 on C5, and C7 on T1. Vertebral body heights are normal. There is mildly decreased disc heigh t at C3-C4 and C4-C5 and severely decreased disc height at C5-C6 and C6-C7. The spinal cord signal in tensity is normal. The following disc levels are specifically discussed: C2-C3: The disc does not extend beyond the endplate margin. There is no uncovertebral joint osteoarth ritis. There is ankylosis of the facet joints with mild left hypertrophy. There is mild left neural f oraminal stenosis. There is no central canal stenosis. C3-C4: There is a central protrusion. There is mild bilateral uncovertebral joint osteoarthritis. The re is severe bilateral facet joint osteoarthritis. There is mild bilateral neural foraminal stenosis. There is mild central canal stenosis. C4-C5: The disc does not extend beyond the endplate margin. There is mild bilateral uncovertebral gurmeet nt osteoarthritis. There is severe bilateral facet joint osteoarthritis. There is mild bilateral neur al foraminal stenosis. There is mild central canal stenosis. C5-C6: The disc is bulging. There is severe bilateral uncovertebral joint osteoarthritis. There is se ewelina right and moderate left facet joint osteoarthritis. There is moderate right and mild left neural foraminal stenosis. There is mild central canal stenosis with ventral indentation of the spinal cord . C6-C7: The disc is bulging. There is severe bilateral uncovertebral joint osteoarthritis. There is se ewelina bilateral facet joint osteoarthritis. There is mild bilateral neural foraminal stenosis. There i s mild central canal stenosis. C7-T1: The disc does not extend beyond the endplate margin. There is no uncovertebral joint osteoarth ritis. There is severe bilateral facet joint osteoarthritis. There is mild bilateral neural foraminal stenosis. There is no central canal stenosis. IMPRESSION: 1. Severe cervical spondylosis, slightly worsened from 11/14/2017. Reviewed, dictated and finalized at location E. [employer]
== END ==
PROVIDERS: PCP Family Medicine; Visit Provider Nurse Practitioner Family
DX: M43.02 Spondylolysis, cervical region (principal)
CPT/HCPCS: 72141

== ENCOUNTER 2024-03-02 09:45 | Outpatient (CLI) | payer MEDICARE, SELFPAY ==
--- NOTE | ~2024-03-02 | XR_ITS ---
AP view of the pelvis and AP and lateral views of the left hip Clinical history: Pain Findings: No acute fracture or dislocation is seen. Osseous alignment is anatomic. Bilateral hip and SI joint spaces are preserved. Soft tissues are unremarkable. Impression: No significant abnormality is seen. Reviewed, dictated and finalized at [facility]. Impression: No significant abnormality is seen.
--- NOTE | ~2024-03-02 | US_ITS ---
EXAMINATION: US soft tissue abdomen DATE: 03/02/2024 10:27 INDICATION: Right lower quadrant abdominal mass. TECHNIQUE: Multiple grayscale and Doppler ultrasound images of the abdomen were obtained. COMPARISON: None FINDINGS: There are multiple subcutaneous masses in right lower quadrant. Some of the masses are mixe d cystic and solid. The largest mass measures 3.9 cm. IMPRESSION: 1. Multiple subcutaneous masses in right lower quadrant. The differential diagnosis includes hematoma s, abscesses, endometriosis, and malignancy. CT abdomen and pelvis with contrast is recommended. Reviewed, dictated and finalized at location A. IMPRESSION: 1. Multiple subcutaneous masses in right lower quadrant. The differential diagn osis includes hematomas, abscesses, endometriosis, and malignancy. CT abdomen a nd pelvis with contrast is recommended.
== END 2024-03-02 09:46 | disposition home or self-care (01) ==
PROVIDERS: PCP Family Medicine; Visit Provider Plastic Surgery
DX: R19.03 Right lower quadrant abdominal swelling, mass and lump (principal); M25.552 Pain in left hip
CPT/HCPCS: 73502; 76705

== ENCOUNTER 2024-03-23 08:55 | Outpatient (CLI) | payer MEDICARE, SELFPAY ==
--- NOTE | ~2024-03-23 | CT_ITS ---
EXAMINATION: CT abdomen pelvis wo/w con DATE: 03/23/2024 09:41 INDICATION: Right lower quadrant skin mass TECHNIQUE: Computed tomography (CT) of the abdomen and pelvis was performed without and with 100 mL O mnipaque-350 intravenous contrast. Automated exposure control and iterative reconstruction technique were employed. The dose-length product was 2826.83 mGy-cm. COMPARISON: Ultrasound dated 03/02/2024 FINDINGS: There is an elongated nodular density in the lateral basilar segment of the right clavicle which geoffrey ures 2 cm in length and approximately 6 mm in maximal diameter suggesting a mucous impacted bronchus. Heart size is normal. Atherosclerotic coronary artery calcific location. Aortic valve calcification. No pericardial or pleural effusion. There is intra and extrahepatic pneumobilia likely related to pr ior cholecystectomy with sphincterotomy. Spleen, pancreas and left adrenal gland are normal. 1.3 cm l ow-attenuation right adrenal adenoma. There are bilateral small renal lesions the largest on the left measuring 1.5 cm which demonstrate greater than simple fluid attenuation with slightly higher densit y on the postcontrast imaging is equivocal for enhancement with assessment limited by the small size of the lesions. Moderate-sized fat-containing supraumbilical ventral hernia with orifice measuring 5. 5 x 3.7 cm. There is also a tiny fat-containing umbilical hernia. Postoperative change of prior appen dectomy with small suture line at the tip the cecum. Bowels are otherwise unremarkable with no obstru ction. Bladder is normal. The uterus is not identified and has likely been surgically resected. No fr ee intraperitoneal gas or fluid. No pathologically enlarged abdominal or pelvic lymphadenopathy. Mult iple small regions of thin curvilinear stranding in the subcutaneous fat at the lateral right buttock and at the anterolateral right pelvis along a fold of pannus. Much of the stranding surrounds lobula r regions of macroscopic fat attenuation. Appearance suggests fat necrosis which could be related to either prior trauma or subcutaneous injections. No evident more nodular solid nonfatty soft tissue. R esolution of the prior associated small subcutaneous fluid collections as seen on the prior study. IMPRESSION: 1. Mild thin curvilinear stranding surrounding lobular regions of macroscopic fat attenuation in the subcutaneous fat at the lateral right buttock and anterolateral right anterior pelvic wall with inter spencer resolution of the previously seen fluid collections. Appearance suggests sequela of fat necrosis potentially related to prior subcutaneous injections, other trauma or infection. Correlate with clini josé miguel history. 2. Moderate-sized fat-containing supraumbilical ventral hernia. 3. 2 x 0.6 cm cylindrical nodule in the right lower lobe most likely representing a subsegmental bron chocele but would recommend 3 month follow-up chest CT. 4. A few small indeterminate renal lesions with degree of increased attenuation on postcontrast imagi ng at the upper limits for determination of nonenhancement with assessment somewhat limited by the re latively small size of the lesions. While most likely representing complex (/hemorrhagic cyst, would consider further evaluation with follow-up pre and postcontrast MRI in 3-6 months. Reviewed, dictated and finalized at location A. IMPRESSION: 1. Mild thin curvilinear stranding surrounding lobular regions of macroscopic f at attenuation in the subcutaneous fat at the lateral right buttock and anterol ateral right anterior pelvic wall with interval resolution of the previously se en fluid collections. Appearance suggests sequela of fat necrosis potentially r elated to prior subcutaneous injections, other trauma or infection. Correlate w ith clinical history. 2. Moderate-
[2024-03-23 09:24] LABS: Estimated Glomerular Filt Rate > 60
== END 2024-03-23 08:56 | disposition home or self-care (01) ==
PROVIDERS: PCP Family Medicine; Visit Provider Plastic Surgery
DX: R22.2 Localized swelling, mass and lump, trunk (principal); K43.9 Ventral hernia without obstruction or gangrene; N28.9 Disorder of kidney and ureter, unspecified
CPT/HCPCS: 74178; Q9967

== ENCOUNTER 2024-05-05 18:41 | Emergency (ER) | payer MEDICARE, SELFPAY ==
--- NOTE | ~2024-05-05 | XR_ITS ---
XR chest 1V portable Ordering provider: Raul Roque MD History: 73 years Female with . COUGH . Comparison: March 25, 2023 FINDINGS: MEDIASTINUM: The cardiac silhouette is not enlarged. LUNGS: No infiltrates, effusions or pneumothorax. OTHER: Degenerative spine. Right shoulder arthroplasty. No free air under the diaphragm. IMPRESSION: No acute cardiopulmonary pathology. Reviewed, dictated and finalized at location A.
--- NOTE | ~2024-05-05 | CT_ITS ---
CTA chest PE abdomen pel Ordering provider: Connor Whitley MD History: . hypoxia, abd pain . Comparison: None. Technique: CT angiogram chest was performed following timed intravenous injection of contrast. Thin s lice axial images and reformatted coronal images were obtained. Three dimensional reformatted images of the chest were also obtained using a [employer] workstation. Also, CT of the abdomen and pelvis was pe rformed with IV contrast. Radiation reduction technique utilized. FINDINGS: PULMONARY ARTERIES: Filling defects in the right lower lobe branches are highly suggestive which may indicate pulmonary embolism. VISUALIZED THORACIC INLET: Normal. MEDIASTINUM: Aorta/coronary arteries: Mild atheromatous disease. Heart/other: The heart is not enlarged. Lymph nodes: No mediastinal or hilar adenopathy. LUNGS: 2 nodules in the right lower lobe are seen which measure 1.5 x 0.6 cm and 0.6 cm. No pulmonary masses . No infiltrates or effusions. No pneumothorax. MUSCULOSKELETAL: Soft tissues: The superficial soft tissues are normal. Bones: Age appropriate degenerative changes of the spine. Right shoulder arthroplasty. IMPRESSION: 1. Highly suggestive of filling defects in the right lower lobe branches suggestive of subsegmental pulmonary embolism. No strain on the right ventricle is noted. Follow-up advised. 2. Nodules in the right lower lobe area. Follow-up in 3 months advised. Prominent vessels are less li saleem. ABDOMEN/PELVIS: --MUSCULOSKELETAL: Superficial soft tissues: Large paraumbilical hernia is noted with fat content. The superficial soft tissues are normal. Bones: Age appropriate degenerative changes of the spine. --UPPER ABDOMINAL ORGANS: Liver: Pneumobilia. Gallbladder: Status post cholecystectomy. Spleen: Normal. Stomach/duodenum: Small sliding hiatus hernia. Linear enhancement in the fundus of the stomach. [facility] evaluation advised. Pancreas: Normal. Adrenals: Prominent left adrenal gland. Adrenal adenoma on the right side measuring 2.1 cm. Kidneys: Bilateral tiny renal cysts. No stones or hydronephrotic changes. --PELVIC ORGANS: The bladder is underfilled. --BOWEL AND MESENTERY: Colon: Mild diverticulosis without diverticulitis sigmoid colon. The appendix is not visualized. Small Bowel: Normal. No obstruction. Peritoneum/mesentery: No free air or free fluid. No mesenteric lymphadenopathy. --RETROPERITONEUM: Mild atheromatous disease of the abdominal aorta. No retroperitoneal lymphadenop athy. IMPRESSION: ABDOMEN/PELVIS: 1. Large periumbilical hernia with fat content. 2. Bilateral adrenal adenomas. These are most likely benign but MRI for further evaluation advised. 3. Bilateral renal cysts. 4. Pneumobilia. 5. Small sliding atelectasis. Reviewed, dictated and finalized at location A. IMPRESSION: 1. Highly suggestive of filling defects in the right lower lobe branches sugge stive of subsegmental pulmonary embolism. No strain on the right ventricle is n oted. Follow-up advised. 2. Nodules in the right lower lobe area. Follow-up in 3 months advised. Promine nt vessels are less likely. ABDOMEN/PELVIS: --MUSCULOSKELETAL: Superficial soft tissues: Large paraumbilical hernia is noted with fat content. The superficial soft tissues are normal. Bones: Age appropriate degenerative changes of the spine. --UPPER ABDOMINAL ORGANS: Liver: Pneumobilia. Gallbladder: Status post cholecystectomy. Spleen: Normal. Stomach/duodenum: Small sliding hiatus hernia. Linear enhancement in the fundus of the stomach. Clinical evaluation advised. Pancreas: Normal. Adrenals: Prominent left adrenal gland. Adrenal adenoma on the right side m
[2024-05-05 18:46] VITALS: BP 123/55; PULSE 102; RESP 24; TEMP 38.1; O2SAT 88
[2024-05-05 18:49] VITALS: O2SAT 95
--- NOTE | 2024-05-05 18:52 | ECG_ITS ---
[facility] [address] Test Date: 2024-05-05 Pat Name: Mariza Garcia Department: Room: Gender: F Window Dresser: : 1950 Requested By: Raul Dunham Order Number: [id number] Jonnie MD: Christian Cox M.D. Measurements Intervals Smith Rate: 105 P: 40 CO: 200 QRS: -27 QRSD: 85 T: 58 QT: 340 QTc: 451 Interpretive Statements SINUS TACHYCARDIA LOW QRS VOLTAGE IN PRECORDIAL LEADS [QRS DEFLECTION < 1.0 mV IN CHEST LEADS] No previous ECG available for comparison Electronically Signed On 05-06-2024 13:36:14 CDT by Christian Cox M.D.
[2024-05-05 19:21] LABS: Basophils Percent Auto 0.2 % (0.2-1.2); Eosinophils Absolute Auto 0.1 K/mm3 (0-0.3); Eosinophils Percent Auto 0.7 % (0-4.4); Hematocrit 44.4 % (37.0-47.0); Hemoglobin 13.9 g/dL (12.0-15.0); Immature Granulocyte Absolute 0.09 K/mm3 (0.00-0.031); Immature Granulocyte Percent A 0.8 % (0-0.5); Lymphocytes Absolute Auto 0.68 K/mm3 (0.9-3.2); Lymphocytes Percent Auto 5.7 % (18.3-44.2); Mean Corpuscular HGB Conc 31.3 g/dl (32-36); Mean Corpuscular Volume 92.7 fl (80-100); Mean Platelet Volume 9.8 fl (7.4-10.4); Monocytes Absolute Auto 0.6 K/mm3 (0.1-0.6); Monocytes Percent Auto 5.1 % (2.6-8.5); Neutrophils Absolute Auto 10.5 K/mm3 (1.3-6.7); Neutrophils Percent Auto 87.5 % (45.5-73.1); Platelet Count Result 208 k/mm3 (150-375); Red Blood Count 4.79 M/mm3 (4.2-5.4); Red Cell Distribution Width 13.6 % (11.5-14.5)
[2024-05-05 19:30] LABS: Prothrombin Time 14.1 Seconds (11.1-14.7)
[2024-05-05 19:31] LABS: Partial Thromboplastin Time 27.1 Seconds (22.3-36.8)
[2024-05-05 19:32] VITALS: BP 155/67; PULSE 102; O2SAT 99
[2024-05-05 19:36] LABS: Alanine Aminotransferase 63 U/L (6-35); Albumin Level 4.2 g/dL (3.5-5.1); Alkaline Phosphatase 146 U/L (38-126); Anion Gap 4 mmol/L (4-12); Aspartate Amino Transferase 90 U/L (14-36); Bilirubin,Total 0.7 mg/dL (0.2-1.3); Blood Urea Nitrogen 17 mg/dL (7-17); Carbon Dioxide 33 mmol/L (22-30); Chloride 104 mmol/L (98-107); Estimated CRCL calculation 64 ml/min; Estimated Glomerular Filt Rate > 60; Glucose 118 mg/dL (65-110); Potassium 4.1 mmol/L (3.4-5.0); Sodium 141 mmol/L (137-145)
[2024-05-05] MEDS: ONDANSETRON INJ 4 MG/2 ML VIAL IV PUSH (19:46)
[2024-05-05] MEDS: IBUPROFEN 400 MG TABLET PO (19:46)
[2024-05-05] MEDS: MORPHINE SULFATE (*CRX) 2 MG/ML INJ IV PUSH (19:47)
[2024-05-05] MEDS: FAMOTIDINE 20 MG/2 ML VIAL IV PUSH (19:54)
[2024-05-05] MEDS: methylPREDNISolone SOD SUCC 125 MG VIAL IV PUSH (19:54)
[2024-05-05] MEDS: diphenhydrAMINE HCl INJ 50 MG/ML VIAL IV PUSH (19:54)
[2024-05-05 19:57] LABS: Influenza A QL RT-PCR Negative (Negative); Influenza B QL RT-PCR Negative (Negative); RSV RNA, RT-PCR Negative (Negative); SARS-CoV-2 RNA PCR Negative (Negative)
--- NOTE | 2024-05-05 20:39 | ED.GENADULT ---
HPI - General Adult General Chief complaint: Shortness of Breath/Dyspnea Stated complaint: SOB, N/V Time Seen by Provider: 05/05/24 19:24 History of Present Illness HPI narrative: Patient is a 73-year-old female who presents to the emergency department this evening from her long term with multiple complaints. Patient states that today she was having some nausea and vomiting, felt febrile, was having chills, and upper epigastric abdominal pain. Patient admits that the symptoms all started today. She denies any sick contacts at the long term or exposure to any virus. She is currently denying any chest pain. Patient denies any urinary symptoms including dysuria or hematuria. No additional symptoms or concerns at this time. Related Data Home Medications Medication Instructions Recorded Confirmed gabapentin 100 mg capsule 300 mg PO TID 03/18/22 05/04/24 buspirone 10 mg tablet 10 mg PO BID 03/25/23 05/04/24 losartan 25 mg tablet 25 mg PO DAILY 03/25/23 05/04/24 multivitamin with minerals-folic 1 tablet PO DAILY 03/25/23 05/04/24 acid 0.4 mg tablet naloxone 4 mg/actuation nasal 1 spray intranasal Q2-3M PRN 03/25/23 05/04/24 spray (Narcan) Opioid Overdose nystatin 100,000 unit/gram topical 1 applic topical BID 03/25/23 05/04/24 powder omeprazole 20 mg capsule,delayed 20 mg PO DAILY 03/25/23 05/04/24 release sertraline 50 mg tablet 50 mg PO DAILY 03/25/23 05/04/24 spironolactone 25 mg tablet 25 mg PO DAILY 03/25/23 05/04/24 trazodone 50 mg tablet 50 mg PO HS 03/25/23 05/04/24 furosemide 20 mg tablet 20 mg PO QAM 05/04/24 05/04/24 hydrocodone 5 mg-acetaminophen 325 tablet PO DAILY 05/04/24 05/04/24 mg tablet metoprolol tartrate 25 mg tablet mg PO DAILY 05/04/24 05/04/24 potassium chloride 10 mEq meq PO DAILY 05/04/24 05/04/24 tablet,extended release(part/cryst) magnesium oxide 400 mg (241.3 mg 400 mg PO DAILY 05/05/24 magnesium) tablet Allergies Allergy/AdvReac Type Severity Reaction Status Date / Time heparin AdvReac Difficulty Verified 05/04/24 13:14 Breathing warfarin AdvReac Difficulty Verified 05/04/24 13:14 Breathing Review of Systems Review of Systems: All systems are reviewed and are negative unless stated otherwise in the HPI. [facility] Past Medical History Medical History Abnormal urinalysis Acute respiratory failure due to COVID-19 Acute respiratory failure with hypoxia Adhesive capsulitis of right shoulder (~08/2019) ZAHEER (acute kidney injury) Allergic rhinitis, unspecified Anxiety Arthritis of shoulder region, right Chest pain Chest pain Chronic obstructive pulmonary disease COVID COVID-19 virus infection Depression DVT (deep venous thrombosis) Fall Generalized weakness History of esophageal stricture Hyperlipidemia Hypertension Left hip pain Left shoulder pain Obstructive sleep apnea Status post uvulopalatal for angioplasty. Osteoporosis Peripheral arterial disease Pneumonia Pulmonary embolism Pulmonary embolism (2020) Right rotator cuff tear Right shoulder pain Sepsis Sinus tachycardia Type 2 diabetes mellitus UTI (urinary tract infection) Vision loss Surgical History Surgical History History of hysterectomy with bilateral oophorectomy History of laparoscopic cholecystectomy History of right below knee amputation History of right knee joint replacement (05/2018) History of uvulopalatopharyngoplasty (2006) History of varicose veins Family History Family History Mother Hypertension Cerebrovascular accident Heart murmur Father Family history of cardiovascular disease Arthritis Atrial fibrillation Diabetes mellitus Social History Social History Social History: Ms. Garcia is currently [facility]. She is reti
[2024-05-05] MEDS: SODIUM CHLORIDE 0.9% IV 1,000 ML 999 ML IV CONT (21:04)
[2024-05-05 21:16] LABS: Appearance Urine Clear (Clear); Bacteria Urine None Seen /hpf; Bilirubin Urine Negative (Negative); Blood Urine Negative (Negative); Color Urine Yellow (Yellow); Glucose Urine UA Negative (Negative); Ketones Urine Negative (Negative); Leukocyte Esterase Ur Trace LEU/UL (Negative); Need Manual Microscopic Reviewed; Nitrate Urine Negative (Negative); Non Pathogenic Casts 0-2; Protein Urine Negative (Negative); RBC Urine 0-2 /hpf (0-2); Specific Grav Ur 1.018 (1.001-1.035); Squamous Epithelial Cell Urine None Seen /hpf (Few); Urobilinogen Urine 0.2 mg/dL (<2.0); WBC Urine 0-5 /hpf (0-3); pH Urine 5.5 (5.0-9.0)
[2024-05-05 21:18] LABS: Add Urine Microscopic? YES
[2024-05-05 22:00] VITALS: BP 136/58; PULSE 105; RESP 20; O2SAT 96
--- NOTE | 2024-05-05 23:59 | PM.IMHP ---
H&P: HPI History of Present Illness Date/Time: 05/05/24 23:59 PMFSH Past Medical History Medical History Abnormal urinalysis Acute respiratory failure due to COVID-19 Acute respiratory failure with hypoxia Adhesive capsulitis of right shoulder (~08/2019) ZAHEER (acute kidney injury) Allergic rhinitis, unspecified Anxiety Arthritis of shoulder region, right Chest pain Chest pain Chronic obstructive pulmonary disease COVID COVID-19 virus infection Depression DVT (deep venous thrombosis) Fall Generalized weakness History of esophageal stricture Hyperlipidemia Hypertension Left hip pain Left shoulder pain Obstructive sleep apnea Status post uvulopalatal for angioplasty. Osteoporosis Peripheral arterial disease Pneumonia Pulmonary embolism Pulmonary embolism (2020) Right rotator cuff tear Right shoulder pain Sepsis Sinus tachycardia Type 2 diabetes mellitus UTI (urinary tract infection) Vision loss Surgical History Surgical History History of hysterectomy with bilateral oophorectomy History of laparoscopic cholecystectomy History of right below knee amputation History of right knee joint replacement (05/2018) History of uvulopalatopharyngoplasty (2006) History of varicose veins Family History Family History Mother Hypertension Cerebrovascular accident Heart murmur Father Family history of cardiovascular disease Arthritis Atrial fibrillation Diabetes mellitus Social History Social History Social History: Ms. Garcia is currently [facility]. She is retired from working at an accounting office. She reports some alcohol intake maybe 2 drinks per week. Former smoker 1ppd x 30 years and quit in 2003. Denies other substance use. PCP is Dr Jesus Gonzales. She describes she would wish for CPR and intubation if felt she could survive but would not wish to be on life support for an extended period, thus keeping her code status DNR. She has two children and her son, Manuel, is a tripper in [place] and is her designated power of educator senior clinical. Smoking packs per day: 1 Smoking cigarettes per day: 20.0 Years smoked: 30 Smoking pack-years: 30.00 Smoking status: Former smoker Tobacco type: cigarettes Second hand tobacco smoke exposure: No Smoking end date: 03/30/03 Alcohol intake: current Drinks per week: 1 Substance use: never Substance use type: does not use Do You Feel Safe in your Home?: Yes Lack of Transportation: YES Lack of Food: Never True Current Housing: I Have Housing Concerned About Future Housing: No Difficulty Paying Gas/Electric Bills: No Difficulty Paying for Meds: No Currently Unemployed: No Education: High School Diploma/GED Difficulty w/ Childcare or Family Care: No Living arrangements: with family Occupation/Education: retired Spiritual care concerns: No Meds Home Medications and Allergies Home Medications Medication Instructions Recorded Confirmed Type apixaban 5 mg tablet (Eliquis) 5 mg PO BID #60 tabs 03/18/22 05/04/24 Rx gabapentin 100 mg capsule 300 mg PO TID 03/18/22 05/04/24 History buspirone 10 mg tablet 10 mg PO BID 03/25/23 05/04/24 History losartan 25 mg tablet 25 mg PO DAILY 03/25/23 05/04/24 History multivitamin with minerals-folic 1 tablet PO DAILY 03/25/23 05/04/24 History acid 0.4 mg tablet naloxone 4 mg/actuation nasal 1 spray intranasal Q2-3M PRN 03/25/23 05/04/24 History spray (Narcan) Opioid Overdose nystatin 100,000 unit/gram topical 1 applic topical BID 03/25/23 05/04/24 History powder omeprazole 20 mg capsule,delayed 20 mg PO DAILY 03/25/23 05/04/24 History release sertraline 50 mg tablet 50 mg PO DAILY 03/25/23 05/04/24 History spironolactone 25 mg tablet 25 mg PO ALLEN
[2024-05-06] MEDS: metroNIDAZOLE 500 MG/ISO 100ML 500 MG/100 ML BAG 100 MG IVPB (00:08)
--- NOTE | 2024-05-06 01:28 | PC.NURSE ---
Per Dr. Gutierrez SANTOS, fluids and abx can be cancelled due to pt being transferred.
[2024-05-06 02:10] VITALS: BP 162/94; PULSE 78; RESP 18; O2SAT 99
--- NOTE | 2024-05-06 03:33 | PC.NURSE ---
Yoli with [facility] transfer center stated pt has received a bed assignment at [facility], room 222-01. Charge Nurse # for report is [phone].
== END 2024-05-06 04:38 | disposition short-term general hospital (02) ==
PROVIDERS: Emergency Medicine; Emergency Provider Emergency Medicine; PCP Nurse Practitioner Family
DX: A41.9 Sepsis, unspecified organism (principal); R10.13 Epigastric pain; R11.2 Nausea with vomiting, unspecified; F41.8 Other specified anxiety disorders; Z86.718 Personal history of other venous thrombosis and embolism; E78.5 Hyperlipidemia, unspecified; I10 Essential (primary) hypertension; Z86.711 Personal history of pulmonary embolism; E11.9 Type 2 diabetes mellitus without complications; Z89.511 Acquired absence of right leg below knee; Z87.891 Personal history of nicotine dependence; Z20.822 Contact with and (suspected) exposure to COVID-19
CPT/HCPCS: 36415; 71045; 71275; 74177; 80053; 81001; 83605; 85025; 85610; 85730; 86140; 87040; 87077; 87147; 87181; 87186; 87637; 93005; 96365; 96367; 96375; 99285; A9270; J0696; J1200; J1836; J2270; J2405; J2919; J7030; Q9967

== ENCOUNTER 2024-08-03 12:31 | Outpatient (CLI) | payer MEDICARE, SELFPAY ==
--- NOTE | ~2024-08-03 | CT_ITS ---
CT Scan of the Chest without Contrast: Clinical Indication: Pulmonary nodule Technique: Contiguous sections were acquired throughout the chest without intravenous contrast. Dose reduction technique was used on this scan by utilizing automated exposure control and iterative recon struction technique. The dose-length product (DLP) was 293.98 mGy-cm. COMPARISON: 05/05/2024 Findings: There is no evidence of any significant mediastinal, hilar or axillary lymphadenopathy. There are ath erosclerotic calcifications of the aorta and coronary arteries. There is no evidence of pleural or pericardial effusion. Stable bilobed adjacent nodules in the right lower lobe (axial images 54-57), largest individual pulm onary nodule measuring 1 cm in maximum diameter. Images through the upper abdomen reveal pneumobilia. Impression: Stable right lower lobe nodule or nodules, as above. Reviewed, dictated and finalized at location . Impression: Stable right lower lobe nodule or nodules, as above.
== END 2024-08-03 12:32 | disposition home or self-care (01) ==
PROVIDERS: PCP Nurse Practitioner Family; Visit Provider Nurse Practitioner Family
DX: R91.1 Solitary pulmonary nodule (principal); N28.9 Disorder of kidney and ureter, unspecified; R91.8 Other nonspecific abnormal finding of lung field
CPT/HCPCS: 71250

== ENCOUNTER 2024-09-01 00:26 | Day surgery (SDC) | payer MEDICARE, SELFPAY ==
[2024-08-13 10:24] VITALS: BMI 46.2
--- NOTE | 2024-08-18 11:27 | PC.NURSE ---
Spoke with patient regarding medication Eliquis. Pt. verbalizes understanding that the last dose of Eliquis is to be taken on 08/29/2024 and the Endoscopist will instruct them when to restart after the procedure.
[2024-09-01 09:00] VITALS: BP 146/69; PULSE 79; RESP 18; TEMP 36.2; O2SAT 92; BMI 44.3
[2024-09-01] MEDS: LACTATED RINGERS 1,000 ML 150 ML IV CONT (09:36)
--- NOTE | 2024-09-01 09:40 | WPDANESEPPF ---
Anes - Initial Pre Proc Eval Procedure: Operation Date: 09/01/24 10:00 Proposed Procedures p Colonoscopy - Andrea Gu MD Date/Time: 09/01/24 09:40 Surgeon: Andrea Gu MD Pre Op Diagnosis: Streptococcal infection,Sepsis, colon polyp Patient Data Age: 74 Gender: F Height: 1.63 m Weight: 117.1 kg Last Vital Signs Temp 36.2 C L 09/01/24 09:00 Pulse 79 09/01/24 09:00 Resp 18 09/01/24 09:00 BP 146/69 H 09/01/24 09:00 Pulse Ox 92 09/01/24 09:00 O2 Del Method Room Air 09/01/24 09:00 Allergies Allergy/AdvReac Type Severity Reaction Status Date / Time heparin Allergy Severe Difficulty Verified 09/01/24 09:07 Breathing warfarin Allergy Severe Difficulty Verified 09/01/24 09:07 Breathing iohexol Allergy Intermediate Rash Verified 09/01/24 09:07 [From contrast - CT, X-RAY] Home Medications Medication Instructions Recorded Confirmed Type apixaban 5 mg tablet (Eliquis) 5 mg PO BID #60 tabs 03/18/22 09/01/24 Rx buspirone 10 mg tablet 10 mg PO BID 03/25/23 09/01/24 History losartan 25 mg tablet 25 mg PO DAILY 03/25/23 09/01/24 History naloxone 4 mg/actuation nasal 1 spray intranasal Q2-3M PRN 03/25/23 09/01/24 History spray (Narcan) Opioid Overdose nystatin 100,000 unit/gram topical 1 applic topical BID 03/25/23 09/01/24 History powder omeprazole 20 mg capsule,delayed 20 mg PO DAILY 03/25/23 09/01/24 History release sertraline 50 mg tablet 50 mg PO DAILY 03/25/23 09/01/24 History spironolactone 25 mg tablet 25 mg PO DAILY 03/25/23 09/01/24 History trazodone 50 mg tablet 50 mg PO HS 03/25/23 09/01/24 History metoprolol tartrate 25 mg tablet 25 mg PO DAILY 05/04/24 09/01/24 History betamethasone dipropionate 0.05 % 1 applic topical BID PRN skin 05/05/24 09/01/24 Rx topical ointment irritation #45 grams magnesium oxide 400 mg (241.3 mg 400 mg PO DAILY 05/05/24 09/01/24 History magnesium) tablet gabapentin 300 mg capsule 300 mg PO TID #90 caps 05/20/24 09/01/24 Rx furosemide 20 mg tablet 20 mg PO QAM 06/11/24 09/01/24 History potassium chloride 10 mEq 10 meq PO DAILY 06/11/24 09/01/24 History tablet,extended release(part/cryst) hydrocodone 5 mg-acetaminophen 325 1 tablet PO Q8H PRN pain #90 tabs 08/03/24 09/01/24 Rx mg tablet Glucosamine Chondroitin 1 tab-cap PO DAILY 08/13/24 09/01/24 History Adriane Fusion Womens 1 cap PO DAILY 08/13/24 09/01/24 History calcium 650 mg-vitamin D3 12.5 1 tablet PO DAILY 08/13/24 09/01/24 History mcg-vitamin K 40 mcg chewable tablet (Viactiv) loratadine 10 mg tablet 10 mg PO DAILY 08/13/24 09/01/24 History tirzepatide 10 mg/0.5 mL 10 mg (0.5 mL) subcut WEEKLY #2 mL 08/24/24 09/01/24 Rx subcutaneous pen injector alprazolam 0.5 mg tablet 0.5 mg PO PRN PRN Anxiety 09/01/24 09/01/24 History Patient hx anesthesia problems: none Family hx anesthesia problems: none Results Review: All pre-operative results and documents have been reviewed as part of the pre-operative evaluation. [facility] Past Medical History Medical History Abnormal urinalysis Acute respiratory failure due to COVID-19 Acute respiratory failure with hypoxia Adhesive capsulitis of right shoulder (~08/2019) ZAHEER (acute kidney injury) Allergic rhinitis, unspecified Anxiety Arthritis of shoulder region, right Chest pain Chest pain Chronic obstructive pulmonary disease COVID COVID-19 virus infection Depression DVT (deep venous thrombosis) Fall Generalized weakness History of esophageal stricture Hyperlipidemia Hypertension Left hip pain Left shoulder pain Obstructive sleep apnea Status post uvulopalatal for angioplasty. Osteoporosis Peripheral arterial disease Pneumonia Pulmonary embolism Pulmonary embolism (2020) Right rotator cuff tear Right shoulder pain Sepsis Sinus tachycardia Type 2 diabetes mellitus UTI (urinary tract infection) Vision loss Surgical Hi
--- NOTE | 2024-09-01 09:59 | PM.HPGS ---
History of Present Illness History of Present Illness Consent: Risks, benefits, and alternatives have been discussed and questions answered. Patient agrees to proceed with procedure. Chief complaint: Streptococcal infection,Sepsis, colon polyp Narrative: Mariza Garcia is a 74 year old female here for colonoscopy, last one 8 years ago. She was admitted at [facility] from 05/05-05/11 for sepsis. Blood cultures grew strep gallolyticus and ID recommended colonoscopy Review of Systems Review of Systems: All systems reviewed & are unremarkable except as noted in HPI and below PMFSH Past Medical History Medical History Abnormal urinalysis Acute respiratory failure due to COVID-19 Acute respiratory failure with hypoxia Adhesive capsulitis of right shoulder (~08/2019) ZAHEER (acute kidney injury) Allergic rhinitis, unspecified Anxiety Arthritis of shoulder region, right Chest pain Chest pain Chronic obstructive pulmonary disease COVID COVID-19 virus infection Depression DVT (deep venous thrombosis) Fall Generalized weakness History of esophageal stricture Hyperlipidemia Hypertension Left hip pain Left shoulder pain Obstructive sleep apnea Status post uvulopalatal for angioplasty. Osteoporosis Peripheral arterial disease Pneumonia Pulmonary embolism Pulmonary embolism (2020) Right rotator cuff tear Right shoulder pain Sepsis Sinus tachycardia Type 2 diabetes mellitus UTI (urinary tract infection) Vision loss Surgical History Surgical History History of hysterectomy with bilateral oophorectomy History of laparoscopic cholecystectomy History of right below knee amputation History of right knee joint replacement (05/2018) History of uvulopalatopharyngoplasty (2006) History of varicose veins Family History Family History Mother Hypertension Cerebrovascular accident Heart murmur Father Family history of cardiovascular disease Arthritis Atrial fibrillation Diabetes mellitus Social History Social History Social History: Ms. Garcia is currently [facility]. She is retired from working at an accounting office. She reports some alcohol intake maybe 2 drinks per week. Former smoker 1ppd x 30 years and quit in 2003. Denies other substance use. PCP is Dr Jesus Gonzales. She describes she would wish for CPR and intubation if felt she could survive but would not wish to be on life support for an extended period, thus keeping her code status DNR. She has two children and her son, Manuel, is a coal washer in [place] and is her designated power of admitted attorneys. Smoking packs per day: 1 Smoking cigarettes per day: 20.0 Years smoked: 30 Smoking pack-years: 30.00 Smoking status: Former smoker Tobacco type: cigarettes Second hand tobacco smoke exposure: No Smoking end date: 03/30/03 Alcohol intake: current Drinks per week: 1 Substance use: never Substance use type: does not use Do You Feel Safe in your Home?: Yes Lack of Transportation: YES Lack of Food: Never True Current Housing: I Have Housing Concerned About Future Housing: No Difficulty Paying Gas/Electric Bills: No Difficulty Paying for Meds: No Currently Unemployed: No Education: High School Diploma/GED Difficulty w/ Childcare or Family Care: No Living arrangements: [facility] Occupation/Education: retired Spiritual care concerns: No Meds Home Medications and Allergies Home Medications Medication Instructions Recorded Confirmed Type apixaban 5 mg tablet (Eliquis) 5 mg PO BID #60 tabs 03/18/22 09/01/24 Rx buspirone 10 mg tablet 10 mg PO BID 03/25/23 09/01/24 History losartan 25 mg tablet 25 mg PO DAILY 03/25/23 09/01/24 History naloxone 4 mg/actuation nasal 1 spray intranasal Q2-3M PRN
--- NOTE | 2024-09-01 10:07 | SUR.OPER ---
Pt developed a skin tear intraoperatively when turning on her left side and scraping her arm on the side rail. Tegaderm applied to skin tear.
[2024-09-01 10:21] VITALS: BP 121/73; PULSE 79; RESP 23; O2SAT 96
[2024-09-01 10:31] VITALS: BP 133/73; PULSE 80; RESP 23; O2SAT 99
[2024-09-01 10:41] VITALS: BP 148/75; PULSE 77; RESP 20; O2SAT 100
== END 2024-09-01 10:50 | disposition home or self-care (01) ==
PROVIDERS: PCP Nurse Practitioner Family; Referring Provider Nurse Practitioner Family; Visit Provider Internal Medicine Gastroenterology
PROC: 0DJD8ZZ Inspection of Lower Intestinal Tract, Via Natural or Artificial Opening Endoscopic (ICD-10-PCS; CPT 45378; principal; 2024-09-01 10:00)
DX: Z09 Encounter for follow-up examination after completed treatment for conditions other than malignant neoplasm (principal); D12.5 Benign neoplasm of sigmoid colon; K63.5 Polyp of colon; K64.8 Other hemorrhoids; K57.30 Diverticulosis of large intestine without perforation or abscess without bleeding; I10 Essential (primary) hypertension; E78.5 Hyperlipidemia, unspecified; E11.9 Type 2 diabetes mellitus without complications; J96.01 Acute respiratory failure with hypoxia; F41.9 Anxiety disorder, unspecified; M19.011 Primary osteoarthritis, right shoulder; J44.9 Chronic obstructive pulmonary disease, unspecified; F32.A Depression, unspecified; G47.33 Obstructive sleep apnea (adult) (pediatric); M81.0 Age-related osteoporosis without current pathological fracture; E66.01 Morbid (severe) obesity due to excess calories; Z68.41 Body mass index [BMI] 40.0-44.9, adult; Z79.01 Long term (current) use of anticoagulants; Z79.891 Long term (current) use of opiate analgesic; Z79.85 Long-term (current) use of injectable non-insulin antidiabetic drugs; Z98.890 Other specified postprocedural states; Z90.49 Acquired absence of other specified parts of digestive tract; Z89.511 Acquired absence of right leg below knee; Z87.891 Personal history of nicotine dependence; Z86.711 Personal history of pulmonary embolism; Z86.718 Personal history of other venous thrombosis and embolism; Z87.19 Personal history of other diseases of the digestive system; Z86.79 Personal history of other diseases of the circulatory system; Z86.19 Personal history of other infectious and parasitic diseases; Z82.49 Family history of ischemic heart disease and other diseases of the circulatory system
CPT/HCPCS: 45380; 45385; 88305; J2003; J2704; J7120

== ENCOUNTER 2024-09-03 10:24 | Outpatient (CLI) | payer MEDICARE, SELFPAY ==
--- NOTE | ~2024-09-03 | MR_ITS ---
EXAMINATION: MR abdomen wo/w con DATE: 09/03/2024 11:50 INDICATION: Disorder of kidney and ureter, unspecified. TECHNIQUE: Magnetic resonance imaging (MRI) of the abdomen was performed without and with 20 mL Multi Bere intravenous contrast. COMPARISON: CT abdomen and pelvis 05/05/2024, 03/23/2024 FINDINGS: The liver, spleen, and pancreas are normal. There is a 12 mm mass in right adrenal gland containing m icroscopic fat, consistent with an adenoma. There is thickening of left adrenal gland containing micr oscopic fat, likely benign. There is a ventral hernia containing fat. There is a [address] in left kidney. There are cysts in the kidneys measuring up to 9 mm on the left. There are no dila summer loops of bowel. There is no ascites. There are no pathologically enlarged lymph nodes. IMPRESSION: 1. Benign cysts in the kidneys. Reviewed, dictated and finalized at location A.
== END 2024-09-03 10:25 | disposition home or self-care (01) ==
PROVIDERS: PCP Nurse Practitioner Family; Visit Provider Nurse Practitioner Family
DX: N28.1 Cyst of kidney, acquired (principal)
CPT/HCPCS: 74183; A9577

== ENCOUNTER 2025-05-20 11:08 | Outpatient (CLI) | payer MEDICARE, SELFPAY ==
--- NOTE | ~2025-05-20 | US_ITS ---
EXAMINATION: US soft tissue groin RT DATE: 05/20/2025 11:33 INDICATION: Unilateral right inguinal hernia TECHNIQUE: Multiple grayscale and Doppler ultrasound images of the right inguinal region of concern w ere obtained. COMPARISON: CT dated 03/23/2024 FINDINGS: Small fat-containing right inguinal hernia which measures approximately 6 cm in length and 3 x 2 cm o rthogonal dimensions. This is without significant interval change since prior CT which also demonstra brett a similar size small fat-containing left inguinal hernia and moderate-sized fat-containing ventra l hernia. IMPRESSION: 1. Small fat-containing right inguinal hernia. Reviewed, dictated and finalized at location A.
--- NOTE | ~2025-05-20 | XR_ITS ---
AP and lateral views of the right hip Clinical history: Pain Findings: No acute fracture or dislocation is seen. Osseous alignment is anatomic.] Hip joint intact. Vascular stent noted in the right thigh. Impression: No significant abnormality is seen. Reviewed, dictated and finalized at [facility]. Impression: No significant abnormality is seen.
--- NOTE | ~2025-05-20 | XR_ITS ---
Lumbosacral Spine: AP and lateral views Clinical History: Pain Findings: The normal lordotic curve is maintained. No fracture or sublocation. There is mild to moder ate degenerative disc changes throughout the lumbar spine. There is severe facet arthropathy of the l umbar spine. The sacroiliac joints are normally outlined. Impression: Moderate to advanced degenerative spondylosis overall, as detailed above. Reviewed, dictated and finalized at location . Impression: Moderate to advanced degenerative spondylosis overall, as detailed above.
== END 2025-05-20 11:09 | disposition home or self-care (01) ==
PROVIDERS: PCP Nurse Practitioner Family; Visit Provider Nurse Practitioner Family
DX: K40.90 Unilateral inguinal hernia, without obstruction or gangrene, not specified as recurrent (principal); M25.551 Pain in right hip; M43.07 Spondylolysis, lumbosacral region
CPT/HCPCS: 72100; 73502; 76882

== ENCOUNTER 2025-10-10 10:09 | Outpatient (CLI) | payer MEDICARE, SELFPAY ==
--- NOTE | ~2025-10-10 | CT_ITS ---
EXAMINATION:CT chest high resolution wo co DATE: 10/10/2025 10:35 INDICATION: Solitary pulmonary nodule. TECHNIQUE: Computed tomography (CT) of the chest was performed without intravenous contrast. Automated exposure control and iterative reconstruction technique were employed. The dose-length product (DLP) was 620.60 mGy-cm. COMPARISON: Chest CT 08/03/2024, CT abdomen and pelvis 03/23/2024, chest CT 02/08/2021 FINDINGS: There is mild scarring at the lung apices. Motion artifact is noted. There is mild atelectasis bilaterally. There are 9 mm and 7 mm nodules in right lower lobe, stable from 03/23/24. No pleural effusion. The heart size is normal. There are coronary artery calcifications. No pericardial effusion. Pneumobilia is noted, likely secondary to sphincterotomy. There is a total right shoulder arthroplasty. There is severe cervical and thoracic spondylosis. There is a benign bone island in T11 vertebral body. IMPRESSION: 1. Chronic pulmonary nodules, likely benign. Reviewed, dictated and finalized at location E. ICAL LABORATORY SCIENTIST
--- NOTE | ~2025-10-10 | XR_ITS ---
PROCEDURE(S): X-ray left knee, minimum 4 views INDICATION(S): Chronic pain COMPARISON(S): 2020 TECHNIQUE: 5 radiographic images were submitted for interpretation. FINDINGS: Bones: There are no fractures seen. There are no destructive lesions or other lesions identified. Joints: There are no dislocations identified. There is severe osteoarthritic type change of the medial compartment. There are moderate such changes in the lateral compartment and patellofemoral compartment. This has progressed. Vascular calcification IMPRESSION: No acute abnormalities are seen. Progression of chronic osteoarthritis Reviewed, dictated and finalized at location A. LSTERY DEPARTMENT SUPERVISOR IMPRESSION: No acute abnormalities are seen. Progression of chronic osteoarthri tis
--- OUTSIDE RECORDS SUMMARY | 2025-10-10 10:53 | XMS_ITS | Clinical Summary ---
Author Organization [facility] [employer] Address [address] [place] [address] Care Team Providers Care Transport Pilot Name Role Phone Eh Tovar MD Unavailable [phone] Faith Dior APRN-DIRECTOR [employer] Primary Care Provider + Source Comments [facility],non-owned Affiliates and Associated Physician Practices is amultiple site organization consisting of ambulatory clinics and hospital sitesin [place], [place], [place] and [place]. This disclosure is being madepursuant to the Care Everywhere program and may not contain all information available regarding this patient. Last updated 18.[facility] Allergies Active Allergy Reactions Criticality Noted Date Comments Heparin Other High 05/06/2024 Necrotizing Iohexol Itching 05/06/2024 Warfarin Other High 05/06/2024 Necrotizing Medications * Be aware that medications may not be up to date on this document. Alwaysverify current medications with the patient. metoprolol tartrate IR (Lopressor) 25 MG tablet Take 1 (one) tablet by mouth 2 times daily Active busPIRone (Buspar) 10 MG tablet Take 1 (one) tablet by mouth 2 times daily Active albuterol HFA (Proventil; Ventolin; Proair) 108 (90 Base) MCG/ACT inhaler Inhale 2 (two) puffs by mouth every 2 hours as needed for Shortness of Breath or Wheezing Active acetaminophen (Tylenol) 325 MG tablet Take 2 (two) tablets by mouth 2 times daily Maximum allowable Acetaminophen amount = 4 Grams (4000 mg) / 24 hours. Active betamethasone dipropionate (Diprosone) 0.05 % ointment Apply to affected area 2 times daily as needed Apply twice daily for skin irritation as needed Active bisacodyl (Dulcolax) 10 MG suppository Insert 1 (one) suppository into the rectum once daily as needed for Constipation Active calcium carbonate (Tums) 500 MG chew tablet Take 2 (two) tablets by mouth 4 times daily as needed with food for Heartburn Active loratadine (Claritin) 10 MG tablet Take 1 (one) tablet by mouth once daily Active losartan (Cozaar) 25 MG tablet Take 1 (one) tablet by mouth once daily Active magnesium oxide (Mag-Ox) 400 MG tablet Take 1 (one) tablet by mouth once daily Active Melatonin 10 MG Take 10 (ten) mg by mouth at bedtime Active magnesium hydroxide (Milk Of Magnesia) 400 MG/5ML suspension Take 30 mL by mouth nightly as needed for Constipation Active mupirocin (Bactroban) 2 % ointment Apply to affected area 3 times daily To affected area Active naloxone HCl (Narcan) 4 MG/0.1ML nasal spray Hope 1 (one) spray into the nose as needed (overdose) Active ascorbic acid (Vitamin C) 500 MG tablet Take 1 (one) tablet by mouth once daily Active tirzepatide (Mounjaro) 2.5 MG/0.5ML injection Inject 2.5 (two and one-half) mg subcutaneously every 7 days Active Biotin 5 MG Take 5 mg by mouth once daily Active HYDROcodone-acetam inophen (Rittman) 5-325 MG tabletIndications: PE (pulmonary thromboembolism) ([facility]),Primary osteoarthritis of left knee,Primary osteoarthritis of both knees Take 1 (one) tablet by mouth every 6 hours as needed 12 tablet 05/11/20 24 Active apixaban (Eliquis) 5 MG tablet Take 1 (one) tablet by mouth 2 times daily 60 tablet 05/11/20 24 Active Active Problems Problem Noted Date Diagnosed Date PE (pulmonary thromboembolism) 05/06/2024 Essential hypertension 01/21/2020 Rotator cuff impingement syndrome 10/21/2019 Anxiety 05/06/2019 Chronic obstructive pulmonary disease 06/30/2018 Presence of right artificial knee joint 02/14/20 18 Primary osteoarthritis of left knee 02/13/2018 Primary osteoarthritis of both knees 03/06/2017 Social History Tobacco Use Types Packs/Day Years Used Date Smoking Tobacco: Former Cigarettes Smokeless Tobacco: Never Tobacco Cessation:Counseling Given: Yes Comments:quit 2005 Alcohol Use Standard Drinks/Week Comments Yes 0 (1 standard drink = 0.6 oz pur e alcohol) occ AUDIT-C Answer Date Recorded Q1: How often do you have a drink containing alc ohol? 2-3 times a week 05/06/2024 Q2: How many drinks containi ng alcohol do you have on a typical day when you are drinking? 1 or 2 05/06/2024 Q3: How often do you have si x or more drinks on one occasion? Never 05/06/2024 Overall Financial Resource Strain (CARDIA) Answe r Date Recorded How hard is it for you to pa y for the very basics like food, housing, medical care, and heating? Not hard at all 05/06/2024 [facility] Occupat ional [facility] - Occupational Stress Questionnaire Answer Date Recorded Do you feel stress - tense, restless, nervous, or anxious, or unable to sleep at night because your mind is troubled all the time - these days? Not at all 05/06/2024 Hunger Vital Sign Answer Date Recorded Within the past 12 months, y ou worried that your food would run out before you got the money to buy more. Never true 05/06/20 24 Within the past 12 months, t he food you bought just didn't last and you didn't have money to get more. Never true 05/06/2024 PRAPARE - Transportation Answer Date Re corded In the past 12 months, has l ack of transportation kept you from medical appointments or from getting medications? No 05/2024 In the past 12 months, has l ack of transportation kept you from meetings, work, or from getting things needed for daily living? No 05/06/2024 Housing Stability Vital Sign Answer Clint e Recorded In the last 12 months, was t here a time when you were not able to pay the mortgage or rent on time? No 05/06/2024 In the last 12 months, how many places have you lived? 1 05/06/2024 In the last 12 months, was t here a time when you did not have a steady place to sleep or slept in a half-way (including now)? No 05/06/2024 Comments No Sex and Gender Information Value Date Recorded Sex Assigned at Not on file Legal Sex Female 1:40 PM TREER Gender Identity Not on file Sexual Orientation Not on file Last Filed Vital Signs Vital Sign Reading Time Taken Comments Blood Pressure 143/63 05/11/2024 3:44 PM CDT Pulse 84 05/11/2024 3:44 PM CDT Temperature 36.8 C (98.2 F) 05/11/2024 3:44 PM CDT Respiratory Rate 18 05/11/2024 3:44 PM CDT Oxygen Saturation 97% 05/11/2024 3:44 PM CDT Inhaled Oxygen Concentration - - Weight 110.8 kg (244 lb 4.8 oz) 05/11/2024 4:00 AM CDT Height 160 cm (5' 3) 05/08/2024 11:21 AM CDT Body Mass Index 43.28 05/08/2024 11:21 AM CDT Plan of Treatment Health Maintenance Due Date Last Done Comments BONE DENSITY TESTING 1950 HEPATITIS C SCREENING 07/25/1967 DTAP/TDAP/TD VACCINES (1 - Tdap) 1968 PNEUMOCOCCAL VACCINE 50+ (1 of 2 - PCV) 1968 ZOSTER VACCINE (1 of 2) 1999 Respiratory Syncytial Virus (RSV) Vaccine Pt: or over 60 yrs (1 - 1-dose 75+ series) 2024 DEPRESSION SCREENING 12/01/2024 MEDICARE AWV CALENDAR YEAR 2024 COVID-19 VACCINE ( - season) 2025 10/08/2023, 11/14/2021, 03/15/2021, Additional history exists INFLUENZA VACCINE (#1) 2025 , 09/04/2021, 08/19/2019, Additional history exists HEPATITIS B VACCINE Aged Out No longe r eligible based on patient's age to complete this topic HIB VACCINE Aged Out No longer eligi ble based on patient's age to complete this topic HPV VACCINE Aged Out No longer eligi ble based on patient's age to complete this topic MENINGOCOCCAL (Group B) VACCINE SHARED DECISION-MAKING Aged Out No longer eligible based on patient's age to complete this topic MENINGOCOCCAL GROUPS A/C/Y/W VACCINE Aged Out No longer eligible based on patient's age to complete this topic Medical Devices Implanted Type Area Body Painter Device Identifier Shelf Expiration Date Model / Serial / Lot Cmnt Bone Co Hv 40gm Implanted:Qty: 1 on 05/21/2017 by Eh Tovar MD at [facility] Right: Knee [employer] 01/28/2019 [id number] / / [id number] Cmpnt Fem Kn Rt Cr Cmnt Prm Vngrd Intlk Implanted:Qty: 1 on 05/21/2017 by Eh Tovar MD at [facility] Right: Knee [employer] 03/19/2027 [id number] / / [id number] Tray Tib 75mm Kn Cocr I Beam Implanted:Qty: 1 on 05/21/2017 by Eh Tovar MD at [facility] Right: Knee [employer] 04/02/2027 [id number] / / [id number] Cmpnt Ptlr 28mm 1 Pg Wire Ascnt Arcm Kn Implanted:Qty: 1 on 05/21/2017 by Eh Tovar MD at [facility] Right: Knee [employer] 03/05/2022 [id number] / / [id number] Brng 74ibg13ed Vngrd Arcm Kn Ant Stab Implanted:Qty: 1 on 05/21/2017 by Eh Tovar MD at 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 Source: [facility]. 06/14/2022 Insurance MEDICARE [employer] MEDICARE ADV SELF PAY NO INSURANCE Member Subscriber Plan / Payer (Ef fective for All Dates) Name:Compa Robb Member ID:Not on file Relation to Subscriber:Not on file Name:COMPA ROBB Subscriber ID:Not on file (Home) Address: [facility] [address] [address] Payer ID:Not on file Group ID:Not on file Type:Self Pay Address: [place], [place] Advance Directives Documents on File Type Date Recorded Patient General Internist And Physician Leader Expl anation Adv Directive/Living Will/POA 05/29/2017 12:18 PM * Full Code (Latest Code Status on File) Date Activated Date Inactivated Comments 05/06/2024 6:15 AM 05/11/2024 7:57 PM * Full Code Date Activated Date Inactivated Comments 05/21/2017 2:11 PM 05/24/2017 12:34 PM Care Teams Transport Pilot Relationship Specialty Start Date End Date Faith Dior APRN-FAITH [address] [place] [address] PCP - General Nurse Practitioner 05/07/24 [place] [address] [place] [address] Orthopedic Surgery 11/26/16
--- OUTSIDE RECORDS SUMMARY | 2025-10-10 10:53 | XMS_ITS | Clinical Summary ---
Author Organization [facility] Address [address] [place] [address] Care Team Providers Care Veneer Stock Layer Name Role Phone Jesus Gonzales MD Primary Care Provider [phone] Allergies Active Allergy Reactions Criticality Noted Date Comments Heparin Other (see comment) High 04/29/2022 Heparin-induced thrombocytopenia Warfarin Rash High 05/09/2022 Coumadin induced skin necrosis Piperacillin Sod-Tazobactam So Rash Medium 07/07/2022 Medications omeprazole EC 20 MG tablet Take 40 mg by mouth daily. Active umeclidinium-vi lanterol 62.5-25 MCG/INH inhaler Inhale 1 puff into the lungs. Active gabapentin (NEURONTIN) 100 MG capsule Take 100 mg by mouth 2 (two) times a day. Active apixaban (ELIQUIS) 5 MG tablet Take 1 tablet (5 mg total) by mouth 2 (two) times daily. 60 tablet 2 Active albuterol sulfate HFA 108 (90 Base) MCG/ACT inhaler Inhale 2 puffs into the lungs every 4 (four) hours as needed for Wheezing or Shortness of breath. 1 g 2 Active nystatin (MYCOSTATIN) powder Apply topically 2 (two) times daily. 1 g 2 Active metoprolol tartrate (LOPRESSOR) 25 MG tablet Take 1 tablet (25 mg total) by mouth 2 (two) times daily. 60 tablet 2 Active vitamin D3, cholecalciferol , 25 MCG (1000 UT) capsule Active diclofenac EC (VOLTAREN) 75 MG tablet diclofenac sodium 75 mg tablet,delayed release Active vitamin D2, ergocalciferol, (DRISDOL) 75278 UNITS capsule TAKIE 1 CAPUSLE BY MOUTH ONCE WEEKLY ON Friday 2 Active Multiple Vitamins-Minera ls (EMERGEN-C VITAMIN C) Pack Take 1 each by mouth. Active LORazepam (ATIVAN) 0.5 MG tablet lorazepam 0.5 mg tablet Active furosemide (LASIX) 40 MG tablet Take 1 tablet by mouth daily. 2 Active spironolactone (ALDACTONE) 25 MG tablet Take 1 tablet by mouth. 2 Active busPIRone (BUSPAR) 10 MG tablet Take 10 mg by mouth 2 (two) times a day. 2 Active SANTYL ointment 2 Active Fluticasone-Ume clidin-Vilant (TRELEGY) 100-62.5-25 MCG/ACT AEROSOL POWDER, BREATH ACTIVATED 2 Active omeprazole (PRILOSEC) 20 MG capsule 2 Active traZODone (DESYREL) 50 MG tablet 2 Active HYDROcodone-abelino taminophen (NORCO) 5-325 MG tablet Take 1 tablet by mouth every 6 (six) hours as needed for Pain. Active Magnesium Hydroxide (MILK OF MAGNESIA OR) Acti ve acetaminophen (TYLENOL) 325 MG tablet every 6 (six) hours. Active Albuterol Sulfate, sensor, 108 (90 Base) MCG/ACT AEROSOL POWDER, BREATH ACTIVATED every 4 (four) hours. Active losartan (COZAAR) 100 MG tablet losartan 100 mg tablet TAKE 1 TABLET BY MOUTH DAILY Active Magnesium Citrate (CITROMA OR) magnesium citrate Active magnesium oxide (MAG-OX) 400 MG tablet daily. 3 Active sertraline (ZOLOFT) 50 MG tablet 2 Active Active Problems Problem Noted Date Diagnosed Date Disorder of shoulder 12/06/2022 Arthralgia of left knee 11/28/2022 Rosacea 11/05/2022 Abnormal urinalysis 10/07/2022 ZAHEER (acute kidney injury) 10/07/2022 Allergic rhinitis, unspecified 10/07/2022 Alopecia of scalp 10/07/2022 Disease due to severe acute respiratory syndrome coronavirus 2 (SARS-CoV-2) 10/07/2022 Transaminitis 10/07/2022 Sinus tachycardia 10/07/2022 Pulmonary embolism 10/07/2022 Osteopenia of neck of left femur 10/07/2022 Leukocytosis 10/07/2022 Osteoarthritis of left glenohumeral joint 2021 Chest pain 10/07/2022 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 10/07/2022 Generalized weakness 10/07/2022 Hemoglobin A1c less than 7.0% 10/07/2022 History of esophageal stricture 10/07/2022 History of obstructive sleep apnea 10/07/2022 Cellulitis 07/02/2022 Severe sepsis 06/08/2022 Hypotension due to drugs 06/05/2022 Acquired absence of right leg below knee 022 Adverse effect of anticoagulants, subsequent enc ounter 05/31/2022 Anemia, unspecified 05/31/2022 Gangrene, not elsewhere classified 05/31/2022 Elevated blood-pressure read ing, without diagnosis of hypertension 05/31/2022 Edema, unspecified 05/31/2022 Varicose veins of unspecifie d lower extremity with other complications 05/31/2022 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 Other abnormalities of gait and mobility 022 Cognitive communication deficit 05/31/2022 Constipation, unspecified 05/31/2022 Heparin induced thrombocytopenia (HIT) Hyperlipidemia 05/31/2022 Skin necrosis 05/09/2022 DVT (deep venous thrombosis) 04/27/2022 PVD (peripheral vascular disease) 04/21/2022 BMI 45.0-49.9, adult 01/24/2022 Obstructive sleep apnea (adult) (pediatric) 01/02 Morbid (severe) obesity due to excess calories 0 01/24/2022 Major depressive disorder, single episode 2021 Hypomagnesemia 01/24/2022 Depressive disorder 01/24/2022 Gastro-esophageal reflux dis ease with esophagitis, without bleeding 01/24/2022 Adhesive capsulitis of right shoulder 10/08/2021 Primary hypertension 01/21/2020 Spinal stenosis in cervical region 10/21/2019 Rotator cuff impingement syndrome 10/21/2019 Partial thickness rotator cuff tear 10/21/2019 Anxiety 05/06/2019 Chronic obstructive pulmonary disease 06/30/2018 Primary osteoarthritis of left knee 02/13/2018 Presence of right artificial knee joint 02/14/20 18 Primary osteoarthritis of both knees 03/06/2017 Immunizations Immunization Administration Dates Next Due Influenza Adult (Generic) 08/19/2019,08/23/2018, 09/03/2017 Pneumococcal (Pneumovax 23) 09/03/2017 Pneumococcal (Prevnar 13) 09/20/2016 Shingrix 11/18/2019,08/19/2019 Zoster (Zostavax) 48578 Unt/0.65Ml 09/20/2016 Social History Tobacco Use Types Packs/Day Years Used Date Smoking Tobacco: Former Cigarettes Q uit: 05/15/2004 Smokeless Tobacco: Never Comments:Quit 19 yrs ago Alcohol Use Standard Drinks/Week Comments Not Currently 0 (1 standard drink = 0.6 oz pur e alcohol) 3-4 drinks per week Comments No Sex and Gender Information Value Date Recorded Sex Assigned at Not on file Legal Sex Female 4:55 PM CDT Gender Identity Female 04/18/2022 10:17 AM CDT Sexual Orientation Straight 04/18/2022 10 :17 AM CDT Last Filed Vital Signs Vital Sign Reading Time Taken Comments Blood Pressure 136/68 12/18/2022 12:49 PM GLAZE MIXER Pulse 69 12/18/2022 12:49 PM GLAZE MIXER Temperature 37.1 C (98.8 F) 07/25/2022 11:05 AM CDT Respiratory Rate 15 07/25/2022 11:0 5 AM CDT Oxygen Saturation 100% 07/25/2022 11: 05 AM CDT Inhaled Oxygen Concentration - - Weight 108.9 kg (240 lb) 12/18/2022 12: 49 PM GLAZE MIXER PER PATIENT-REFUSED TO WEIGH Height 160 cm (5' 3) 12/18/2022 12:49 PM GLAZE MIXER Body Mass Index 42.51 12/18/2022 12:49 PM GLAZE MIXER Plan of Treatment Health Maintenance Due Date Last Done Comments EGD-Joseph's Surveillance 1950 Hepatitis C 1968 DTaP, Tdap and Td Vaccines ( 1 - Tdap) 1968 Annual Medicare Wellness Visit 2014 Dexa Scan (General) 2014 RSV Immunization or 60+ Years (1 - 1-dose 75+ series) 2024 COVID-19 Vaccine (2024-2 6 season) 2025 11/14/2021, 03/15/2021, 01/05/2021 Influenza Adult (#1) 2025 08/19/2019, 08/23/2018, 09/03/2017 Pneumococcal Vaccine: 50+ Years Completed 09/03/2017, 09/20/2016 Zoster Vaccines Completed 11/18/2019, 08/19/2019, 09/20/2016 Colorectal Cancer Screening FIT/FOBT (1 Year) Discontinued 05/03/2022 Hepatitis A Vaccines Aged Out No long er eligible based on patient's age to complete this topic Meningococcal B Vaccine Aged Out No l onger eligible based on patient's age to complete this topic Meningococcal Vaccine Aged Out No samuel isael eligible based on patient's age to complete this topic RSV Immunizations Under 20 Months Aged Out No longer eligible based on patient's age to complete this topic Goals Goal Patient Goal Type Associated Problems Recent Progress Patient-Stated? Author Monitor - able to maintain pain control General Alan Izquierdo RN Procedures Procedure Name Priority Date/Time Associated Diagnosis Comments OCCULT BLOOD, FECES Routine 05/03/2022 8 :30 PM CDT from Last 3 Months or Most Recently Relevant to Health Maintenance Results * OCCULT BLOOD, FECES (05/03/2022 8:30 PM CDT) OCCULT BLOOD FECAL NEGATIVE 05/04/2022 7:27 AM CDT [facility] STOOL SPECIMEN / Unknown 05/03/2022 8:30 PM CDT us Topher Cherry MD BODY FLUIDS AND STOOLS ORDERABLE S Final Result [facility] [address] [place] [address], [place] [phone] from Last 3 Months or Most Recently Relevant to Health Maintenance Additional Health Concerns Infection Onset Date Last Indicated VRE Comment:06/11/22 +VRE Left arm 07/21/22 +VRE Urine 06/14/2022 06/14/2022 Insurance MEDICAID MEDICARE Advance Directives Documents on File Type Date Recorded Patient Traffic Operations Manager Expl anation Advance Directives and Living Will 07/16/2022 12:31 PM 08/18/2019 POA FOR HEALTH CARE Advance Directives and Living Will 06/08/2022 06/02/22 POLST FORM Advance Directives and Living Will 05/28/2022 8:59 AM 08/18/2019 POA FOR HEALTH CARE Advance Directives and Living Will 05/13/2022 12:29 PM POA HEALTHCARE Advance Directives and Living Will 03/18/2016 POWER OF QUALITY REVIEW SPECIALIST * DNR (Latest Code Status on File) Date Activated Date Inactivated Comments 07/02/2022 2:43 AM 07/25/2022 2:33 PM * DNR Date Activated Date Inactivated Comments 06/08/2022 11:34 PM 06/14/2022 9:18 PM * Full Code Date Activated Date Inactivated Comments 06/08/2022 9:12 PM 06/08/2022 11:34 PM * Full Code Date Activated Date Inactivated Comments 05/01/2022 5:05 PM 05/31/2022 3:51 PM * Full Code Date Activated Date Inactivated Comments 04/22/2022 7:15 PM 05/01/2022 5:05 PM Care Teams Veneer Stock Layer Relationship Specialty Start Date End Date Jesus Gonzales MD [address] [facility] [address] [place] [id number] PCP - General FAMILY PRACTICE 04/19/22
--- OUTSIDE RECORDS SUMMARY | 2025-10-10 10:53 | XMS_ITS | Clinical Summary ---
Author Organization [facility] [place] [address] Address [address] [place] [address] Care Team Providers Care Ferris Wheel Attendant Name Role Phone Jesus Gonzales MD Primary Care Provider Allergies No known active allergies Medications metoprolol XL (TOPROL-XL) 25 mg extended release tabletIndicatio ns:hypertension Take 25 mg by mouth hand quilter before breakfast 1 Active potassium chloride ER 10 mEq CR tablet Take 10 mEq by mouth hand quilter before breakfast 1 Active albuterol HFA (PROVENTIL HFA,VENTOLIN HFA,PROAIR HFA) 90 mcg/actuation inhaler Inhale 2 puffs as needed 9 Active buPROPion XL (WELLBUTRIN XL) 150 mg 24 hr tablet Take 150 mg by mouth daily 9 Active carisoprodoL (SOMA) 350 mg tablet 0 Active furosemide (LASIX) 40 mg tablet Take 40 mg by mouth hand quilter before breakfast 1 Active losartan (COZAAR) 100 mg tablet losartan 100 mg tablet TK 1 T PO D Active magnesium oxide (MAG-OX) 400 mg (241.3 mg elemental magnesium) tablet TAKE HALF A TABLET BY MOUTH EVERY 12 HOURS 1 Active omeprazole (PriLOSEC) 40 mg capsule Take 40 mg by mouth hand quilter before breakfast 8 Active sertraline (ZOLOFT) 50 mg tabletIndicatio ns:Anxiety with Depression Take 75 mg by mouth nightly 1 Active spironolactone (ALDACTONE) 100 mg tabletIndicatio ns:hypertension Take 50 mg by mouth hand quilter before breakfast 6 Active umeclidinium-vi lanteroL (ANORO ELLIPTA) 62.5-25 mcg/actuation blister with deviceIndicatio ns:Bronchospasm Prevention with COPD Inhale 1 puff hand quilter before breakfast Active oxygenIndicatio ns:Dyspnea Administer 2 L/min into each nostril nightly Active cyclobenzaprine (FLEXERIL) 5 mg tablet Take 1 tablet (5 mg total) by mouth 3 (three) times a day as needed for muscle spasms 30 tablet 2 Active docusate sodium (COLACE) 100 mg capsuleIndicati ons:constipatio n Take 1 capsule (100 mg total) by mouth 2 (two) times a day for 14 days 2 Active gabapentin (NEURONTIN) 300 mg capsule Take 1 capsule (300 mg total) by mouth 3 (three) times a day for 14 days 90 capsule 2 Active apixaban (ELIQUIS) 2.5 mg tablet Take 1 tablet (2.5 mg total) by mouth 2 (two) times a day 2 Active Active Problems Problem Noted Date Diagnosed Date Arthritis of right shoulder region 01/22/2022 Right shoulder pain 11/05/2021 Overview (11/05/2021): Added automatically from request for surgery [id number] Shoulder arthritis 11/05/2021 Overview (11/05/2021): Added automatically from request for surgery [id number] Adhesive capsulitis of shoulder 10/08/2021 Brachial neuritis 10/08/2021 Disorder of shoulder 10/08/2021 Essential hypertension 01/21/2020 Partial thickness rotator cuff tear 10/21/2019 Rotator cuff impingement syndrome 10/21/2019 Spinal stenosis in cervical region 10/21/2019 Anxiety 05/06/2019 Chronic obstructive pulmonary disease 06/30/2018 Presence of right artificial knee joint 02/14/20 18 Primary osteoarthritis of left knee 02/13/2018 Primary osteoarthritis of both knees 03/06/2017 Immunizations Immunization Administration Dates Next Due Influenza, Quad, Adjuvantate d, Intramuscular 09/04/2021 Influenza, Trivalent, High D ose, Split, Preservative Free, Intramuscular 08/19/2019,08/23/2018,09/03/2017 Pneumococcal Conjugate PCV 13 09/20/2016 Pneumococcal Polysaccharide PPV23 09/03/2017 ZOSTER LIVE 09/20/2016 ZOSTER Recombinant 11/18/2019,08/19/2019 Surgical History Surgery Date Site/Laterality Comments HYSTERECTOMY and oophorectomy UVULOPALATOPHARYNGOPLASTY 12/01/2006 - 11/30/2007 JOINT REPLACEMENT 05/21/2017 Right total knee arthroplasty CHOLECYSTECTOMY VARICOSE VEIN SURGERY 12/01/2015 - 11/30/2016 COLONOSCOPY APPENDECTOMY pt believes it was taken out 40+ years ago Medical History Medical History Date Comments Anxiety Hypertension COPD (chronic obstructive pulmonary disease) Glenohumeral arthritis Sleep apnea Covid-19 01/2021 Morbid obesity (HCC) Family History Medical History Relation Name Comments Heart attack Father Stroke Mother Anesthesia problems Neg Hx Relation Name Status Comments Father Other ME's age 80s Mother Other CVA's late 60s Social History Tobacco Use Types Packs/Day Years Used Date Smoking Tobacco: Former Cigarettes 1 35 1 968 - 2002 AUDIT-C Answer Date Recorded Q1: How often do you have a drink containing alc ohol? 2-3 times a week 01/22/2022 Q2: How many drinks containi ng alcohol do you have on a typical day when you are drinking? 1 or 2 01/22/2022 Q3: How often do you have si x or more drinks on one occasion? Never 01/22/2022 Comments No Sex and Gender Information Value Date Recorded Sex Assigned at Not on file Legal Sex Female 1:08 AM FAM[facility] DIRECTOR Gender Identity Not on file Sexual Orientation Not on file Last Filed Vital Signs Vital Sign Reading Time Taken Comments Blood Pressure 168/75 01/25/2022 8:29 PM [facility] DIRECTOR Pulse 78 01/25/2022 8:29 PM [facility] DIRECTOR Temperature 36.7 C (98 F) 01/25/2022 8:29 PM [facility] DIRECTOR Respiratory Rate 16 01/25/2022 8:29 PM [facility] DIRECTOR Oxygen Saturation 95% 01/25/2022 8:29 PM [facility] DIRECTOR Inhaled Oxygen Concentration - - Weight 118.8 kg (262 lb) 01/22/2022 5:45 AM [facility] DIRECTOR Height 161.3 cm (5' 3.5) 01/22/2022 5:45 AM [facility] DIRECTOR Body Mass Index 45.68 01/22/2022 5:45 AM [facility] DIRECTOR Plan of Treatment Not on file Medical Devices Implanted Type Area Mixer Slagman Device Identifier Shelf Expiration Date Model / Serial / Lot [employer] [id number] Delta Xtend 27mm Cementless Shoulder Standard Component Glenoid Latex Free - [id number] Implanted:Qty: 1 on 01/22/2022 by Elvin Blanco MD at [facility] Right: Shoulder [employer] [id number] 07/31/2031 [id number] / / [id number] [employer] [id number] Delta Xtend 4.5mm 42mm Lock Shoulder Glenoid Screw Bone Metaglene - [id number] Implanted:Qty: 1 on 01/22/2022 by Elvin Blanco MD at [facility] Right: Shoulder [employer] [id number] 10/30/2026 [id number] / / [id number] [employer] [id number] Delta Xtend 4.5mm 36mm Lock Shoulder Glenoid Screw Bone Metaglene - [id number] Implanted:Qty: 1 on 01/22/2022 by Elvin Blanco MD at [facility] Right: Shoulder [employer] [id number] 09/30/2026 [id number] / / [id number] [employer] [id number] Component Glenoid Delta Xtend +2mm Od38mm - [id number] Implanted:Qty: 1 on 01/22/2022 by Elvin Blanco MD at [facility] Right: Shoulder [employer] 11/30/2026 [id number] / / [id number] [employer] [id number] Implant Shldr Xtend Modecc 145epi Por Sz1 Rt - [id number] Implanted:Qty: 1 on 01/22/2022 by Elvin Blanco MD at [facility] Right: Shoulder [employer] 01/28/2031 [id number] / / [id number] [employer] [id number] Delta Xtend 38mm Shoulder +3mm Standard Cup Humeral Polyethylene Latex Free - [id number] Implanted:Qty: 1 on 01/22/2022 by Elvin Blanco MD at [facility] Right: Shoulder [employer] 07/31/2026 [id number] / / [id number] [employer] [id number] Global Unite 10mm 113mm Modular Shoulder Standard Stem Humeral - [id number] Implanted:Qty: 1 on 01/22/2022 by Elvin Blanco MD at [facility] Right: Shoulder [employer] 09/30/2031 [id number] / / [id number] Explanted Type Area Mixer Slagman Device Identifier Shelf Expiration Date Model / Serial / Lot [employer] [id number] Steinmann 3/32in 9in 2 Trocar Pin Fixation Nonsterile - [id number] Explanted:Qty: 1 on 01/22/2022 by Evlin Blanco MD at [facility] Right: Shoulder [employer] [id number] S / / [facility] HMO REF [facility] HMO REF Advance Directives For more information, please contact: [phone] Documents on File Type Date Recorded Patient Temple Meat Cutter Expl anation ADVANCE DIRECTIVE 01/22/2022 5:56 AM Power of Music Engineer-Medical * Full Code (Latest Code Status on File) Date Activated Date Inactivated Comments 01/22/2022 11:45 AM 01/26/2022 1:13 AM Care Teams Ferris Wheel Attendant Relationship Specialty Start Date End Date Jesus Gonzales MD [address] [place] [address] PCP - General Family Medicine 05/07/19
--- OUTSIDE RECORDS SUMMARY | 2025-10-10 10:53 | XMS_ITS | Clinical Summary ---
Author Organization [facility] Address [address], [facility] [address] [place] [address] Phone Care Team Providers Care Wheel Lacer And Truer Name Role Phone Jesus Gonzales MD Primary Care Provider Allergies Active Allergy Reactions Criticality Noted Date Comments Heparin Other (see Comments) High 04/29/2022 Heparin-induced thrombocytopenia Warfarin Rash High 05/09/2022 Coumadin induced skin necrosis Medications umeclidinium-vi lanterol (ANORO ELLIPTA) 62.5-25 MCG/INH AEROSOL POWDER, BREATH ACTIVATED take by inhalation. 2 Active spironolactone (ALDACTONE) 25 MG Tablet Take 1 Tablet by mouth. 2 Active sertraline (ZOLOFT) 25 MG Tablet Take 1 Tablet by mouth. 1 Active pravastatin (PRAVACHOL) 40 MG Tablet at bedtime 6 Active potassium chloride SA (KLORCON M) 10 MEQ Tablet Controlled Release Take 10 mEq by mouth. 1 Active potassium chloride (MICRO-K) 10 MEQ Capsule CR 1 Active ondansetron (ZOFRAN) 8 MG Tablet 7 Active Omeprazole Magnesium 20 MG Tablet Delayed Response Take 2 Tablets by mouth. 2 Active nystatin 174558 UNIT/GM Powder Apply. 2 Active Multiple Vitamins-Minera ls (Emergen-C Vitamin C) Pack Take 1 Each by mouth. Active metoprolol Succinate (TOPROL-XL) 25 MG TABLET SR 24 HR Take 25 mg by mouth daily. 2 Active magnesium oxide (MAG-OX) 400 MG Tablet TAKE HALF A TABLET BY MOUTH EVERY 12 HOURS 1 Active magnesium hydroxide (MILK OF MAGNESIA) 400 MG/5ML Suspension Take 30 mL by mouth. 2 Active magnesium citrate (Citroma) 1.745 GM/30ML Solution Take 296 mL by mouth. 2 Active losartan (COZAAR) 25 MG Tablet Take 1 Tablet by mouth. 2 Active HYDROcodone-abelino taminophen (NORCO) 5-325 MG Tablet TAKE 1 TABLET BY MOUTH EVERY 6 HOURS 2 Active gabapentin (NEURONTIN) 100 MG Capsule TAKE 1 CAPSULE BY MOUTH EVERY NIGHT AT BEDTIME 2 Active furosemide (LASIX) 40 MG Tablet Take 1 Tablet by mouth. 1 Active fluorometholone (FML) 0.1 % Suspension Place 1 Drop in affected eye(s). 6 Active cyclobenzaprine (FLEXERIL) 5 MG Tablet Take 5 mg by mouth. 2 Active carisoprodol (SOMA) 350 MG Tablet 0 Active buPROPion (WELLBUTRIN) 150 MG XL tablet Take 150 mg by mouth. 9 Active bisacodyl 10 MG Suppository by Rectal route. 2 Active acetaminophen (Tylenol) 325 MG Tablet Take 2 Tablets by mouth. 2 Active albuterol 108 (90 Base) MCG/ACT Aerosol Solution take 2 Puffs by inhalation. 9 Active Eliquis 5 MG Tablet Take 5 mg by mouth 2 times daily. 2 Active aspirin EC 81 MG Tablet Delayed Response Take 1 Tablet by mouth. 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 Need for assistance with personal care 2 Hypokalemia 05/31/2022 Hyperlipidemia, unspecified 05/31/2022 Heparin induced thrombocytopenia (HIT) 2 Constipation, unspecified 05/31/2022 Cognitive communication deficit 05/31/2022 Cellulitis of left upper limb 05/31/2022 Anemia, unspecified 05/31/2022 Acute embolism and thrombosi s of deep veins of left upper extremity 05/31/2022 Acquired absence of right leg below knee 022 Skin necrosis 05/09/2022 PVD (peripheral vascular disease) 04/21/2022 Personal history of pulmonary embolism Obstructive sleep apnea (adult) (pediatric) 01/02 Morbid (severe) obesity due to excess calories 0 01/24/2022 Hypomagnesemia 01/24/2022 Gastro-esophageal reflux dis ease with esophagitis, without bleeding 01/24/2022 Depression, unspecified 01/24/2022 Major depressive disorder, single episode 2021 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 2021 Shoulder arthritis 11/05/2021 Overview (07/04/2022): Added automatically from request for surgery [id number] Essential hypertension 01/21/2020 Spinal stenosis in cervical region 10/21/2019 Rotator cuff impingement syndrome 10/21/2019 Partial thickness rotator cuff tear 10/21/2019 Anxiety 05/06/2019 Chronic obstructive pulmonary disease 06/30/2018 Presence of right artificial knee joint 02/14/20 18 Primary osteoarthritis of both knees 03/06/2017 Immunizations Immunization Administration Dates Next Due Covid-19, Mrna, Lnp-s, Pf, 1 00 Mcg Or 50 Mcg Dose (MODERNA) 11/14/2021,03/15/2021,01/05/2021 Influenza, Quadrivalent, Adjuvanted 09/04/2021 Influenza, high-dose, trivalent, PF 08/19/2019,0 08/23/2018,09/03/2017 Pneumococcal Vaccine - 13 Valent 09/20/2016 Pneumococcal Vaccine Adult - 23 Valent 7 Zoster Vaccine Recombinant 11/18/2019,08/19/2019 Zoster Vaccine, live 09/20/2016 Social History Tobacco Use Types Packs/Day Years Used Date Smoking Tobacco: Never Assessed Comments Unknown Sex and Gender Information Value Date Recorded Sex Assigned at Not on file Legal Sex Female 7:57 PM CDT Gender Identity Not on file Sexual Orientation Not on file Plan of Treatment Health Maintenance Due Date Last Done Comments Hepatitis C Virus (HCV) Screening 1950 TdaP Immunization 1950 Respiratory Syncytial Virus (RSV) Immunization (Adult) (1 - 1-dose 75+ series) 2024 Influenza Immunization (#1) 2025 10/0 03/2021, 08/19/2019, 08/23/2018, Additional history exists SARS-COV-2 Immunization ( season) 2025 11/14/2021, 03/15/2021, 01/05/2021 Colonoscopy Discontinued 02/06/2015 Pneumococcal Immunization (50+ years) Completed 09/03/2017, 09/20/2016 Pneumococcal Immunization Combined Discontinued 09/03/2017, 09/20/2016 Zoster Immunization Completed 11/18/2019, 08/19/2019, 09/20/2016 Colorectal Cancer Screening Discontinued Immunochemical Fecal Occult Blood Discontinued 05/03/2022 Cologuard Discontinued Hepatitis B Immunization Aged Out No longer eligible based on patient's age to complete this topic Human Papillomavirus (HPV) Immunization Aged Out No longer eligible based on patient's age to complete this topic Meningococcal Immunization (ACWY) Aged Out No longer eligible based on patient's age to complete this topic Rotavirus Immunization Aged Out No lo nger eligible based on patient's age to complete this topic Procedures Procedure Name Priority Date/Time Associated Diagnosis Comments COLONOSCOPY Routine 02/06/2015 from Last 3 Months or Most Recently Relevant to Health Maintenance Results * HM COLONOSCOPY (02/06/2015) Hermilo Downey DO PROCEDURE/MINOR SURGICA L ORDERABLES Final Result from Last 3 Months or Most Recently Relevant to Health Maintenance Insurance MEDICARE C [facility] Care Teams Wheel Lacer And Truer Relationship Specialty Start Date End Date Jesus Gonzales MD [address] [place] [id number] PCP - General Family Medicine 04/30/22
== END 2025-10-10 10:10 | disposition home or self-care (01) ==
PROVIDERS: PCP Nurse Practitioner Family; Visit Provider Nurse Practitioner Family
DX: R91.8 Other nonspecific abnormal finding of lung field (principal); M17.12 Unilateral primary osteoarthritis, left knee
CPT/HCPCS: 71250; 73564